=== PATIENT | male | born 1945 | race African-American/Black ===

== ENCOUNTER 2020-09-19 13:30 | Outpatient (RCR) | payer MEDICARE, OTHER, SELFPAY ==
[2020-09-10 10:22] VITALS: BP 163/98; PULSE 98; RESP 22; TEMP 36.5; BMI 34.4
--- NOTE | 2020-09-10 11:14 | PCM.WC.HP ---
(1) Psychosis Status: Chronic Code(s): F29 - Unspecified psychosis not due to a substance or known physiological condition (2) Titubation Status: Chronic Code(s): R26.0 - Ataxic gait (3) Depression Status: Chronic Code(s): F32.9 - Major depressive disorder, single episode, unspecified (4) Poor hygiene Status: Chronic Code(s): R46.0 - Very low level of personal hygiene (5) Glaucoma Status: Chronic Code(s): H40.9 - Unspecified glaucoma (6) Obesity (BMI 30.0-34.9) Status: Chronic Code(s): E66.9 - Obesity, unspecified (7) PAD (peripheral artery disease) Status: Chronic Code(s): I73.9 - Peripheral vascular disease, unspecified (8) Paranoid schizophrenia Status: Chronic Code(s): F20.0 - Paranoid schizophrenia (9) History of DVT (deep vein thrombosis) Status: Chronic Code(s): Z86.718 - Personal history of other venous thrombosis and embolism (10) History of pulmonary embolism Status: Chronic Code(s): Z86.711 - Personal history of pulmonary embolism (11) Seizure disorder Status: Chronic Code(s): G40.909 - Epilepsy, unspecified, not intractable, without status epilepticus (12) Post-phlebitic dermatosis of both lower extremities Status: Acute Code(s): I87.093 - Postthrombotic syndrome with other complications of bilateral lower extremity (13) Obstructive sleep apnea Status: Chronic Code(s): G47.33 - Obstructive sleep apnea (adult) (pediatric) (14) DM type 2 (diabetes mellitus, type 2) Status: Chronic Code(s): E11.9 - Type 2 diabetes mellitus without complications (15) Paroxysmal atrial fibrillation Status: Chronic Code(s): I48.0 - Paroxysmal atrial fibrillation (16) Hyperlipidemia Status: Chronic Code(s): E78.5 - Hyperlipidemia, unspecified (17) Benign hypertension Status: Chronic Code(s): I10 - Essential (primary) hypertension (18) Lower extremity ulceration Status: Chronic Qualifiers: Laterality: right Code(s): L97.909 - Non-pressure chronic ulcer of unspecified part of unspecified lower leg with unspecified severity (19) Venous stasis ulcer Status: Chronic Qualifiers: Venous stasis ulcer site: calf Code(s): I83.009 - Varicose veins of unspecified lower extremity with ulcer of unspecified site; L97.909 - Non-pressure chronic ulcer of unspecified part of unspecified lower leg with unspecified severity History of Present Illness Date of Service: 09/10/20 Chief Complaint: Ulceration of the right anterior tibial surface History of Wound: This is a 75-year-old -[place] male who presents with an ulceration on the right anterior tibial surface. According to the patient, this is his first episode of lower extremity ulceration. It began as a blister approximately 2 months ago, and ultimately developed into an open wound. Among other things, the patient has used peroxide topically. The ulceration has failed to heal, prompting referral from the patient's primary care physician, Dr. Gutiérrez. The patient claims to sleep in a head-up position. He admits to being limited in his activity. He attributes this to his age. He spends a lot of time each day sitting and watching TV. Patient has a history of deep vein thrombosis on several occasions in the past, as well as 2 documented pulmonary embolisms. He is on systemic anticoagulation with Xarelto. He admits to having swelling in his lower extremities bilaterally. He lives alone. Past Medical History Past Medical History: Chronic Problems Psychosis (Chronic) Titubation (Chronic) Depression (Chronic) Poor hygiene (Chronic) Glaucoma (Chronic) Obesity (BMI 30.0-34.9) (Chronic) PAD (peripheral artery disease) (Chronic) Paranoid schizophrenia (Chronic) History of DVT (deep vein thrombosis) (Chronic) History of pulmonary embolism (Chronic) Seizure disorder (Chronic) Lower extremity ulceration (Chronic) Venous stasis ulcer (Chronic) Obstructive sleep apnea (Chronic) DM type 2 (diabetes mellitus, type 2) (Chronic) Paroxysmal atrial fibrillation (Chronic) Hyperlipidemia (Chronic) Benign hypertension (Chronic) Past Medical History: The patient denies a history of myocardial infarction, congestive heart failure, pulmonary disease, renal disease, and thyroid disease. His documented medical problems are listed herein elsewhere. These include diabetes mellitus, atrial fibrillation, psychosis, titubation, depression, hypertension, glaucoma, obesity, obstructive sleep apnea, hyperlipidemia, peripheral arterial disease, paranoid schizophrenia, seizure disorder, and history of DVT and pulmonary embolism. Surgical History: herniorrhaphy - The patient has had bilateral inguinal hernia repairs. Allergies/Adverse Reactions: Allergies No Known Allergies Allergy (Verified 02/02/16 17:18) Home Medications: Ambulatory Orders Medication Instructions Recorded Amlodipine [Norvasc] 10 mg PO DAILY 02/02/16 Atorvastatin Calcium [Lipitor] 80 mg PO QHS 02/02/16 Ergocalciferol [Vitamin D] 50,000 unit PO Q7D 02/02/16 Furosemide [Lasix] 40 mg PO DAILY 02/02/16 Lisinopril [Zestril] 10 mg PO DAILY 02/02/16 Oxycodone [Oxyir] 5 mg PO DAILY PRN 02/02/16 Potassium Chloride [K-Dur] 20 meq PO DAILY 02/02/16 Quetiapine Fumarate [Seroquel] 50 mg PO QHS 02/02/16 Rivaroxaban [Xarelto] 20 mg PO DAILY 02/02/16 Triamcinolone 0.025% Cream 1 applic TOPICAL BID PRN 02/02/16 [Kenalog] Urea [Urevaz] 60 gm TP BID 02/02/16 metFORMIN HCl [Glucophage] 1,000 mg PO BIDCM 02/02/16 - Family History Maternal Stroke, - - Hypertension, diabetes mellitus Paternal No pertinent history Social History: Patient lives alone. He has never been . He denies use of alcohol and tobacco products. 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 Lives: Alone Smoking Status: Never smoker Tobacco Use: Non-smoker Alcohol: None Drugs: None Review of Systems Constitutional: Denies: Chills, Fever, Weight Change Eyes: Denies: Pain, Vision Change HEENT: Denies: Difficulty Hearing, Difficulty Swallowing, Sinus Congestion Cardiovascular: Denies: Chest Pain, Palpitations Respiratory: Denies: Cough, Shortness of Breath Gastrointestinal: Denies: Diarrhea, Nausea, Vomiting Genitourinary: Denies: Dysuria, Hematuria Endocrine: Denies: Heat/ Cold Intolerance, Polydipsia, Polyuria Hematologic/ Lymphatic: Denies: Easy Bruising, Easy Bleeding - Physical Exam Vital Signs Temp Pulse Resp BP 97.7 F L 98 22 H 163/98 H 09/10/20 10:22 09/10/20 10:22 09/10/20 10:22 09/10/20 10:22 General: Alert, Oriented x3, Cooperative, No apparent distress, Well developed, Well nourished HEENT: Atraumatic, PERRLA, EOMI, Normocephalic Oral: Moist Mucosa Neck: No JVD, No Nuchal Rigidity, Trachea Midline Lungs: Normal air movement Abdomen: Non-Distended Extremities: No clubbing, No cyanosis, No edema, No Calf Tenderness Addt'l Extremities Findings: Hyperpigmentation and lipodermatosclerosis are noted in the lower extremities bilaterally. There is an ulceration on the right anterior tibial surface. There is no sign of infection or cellulitis. There is a small amount of bioburden. There is no significant necrotic or nonviable tissue. Dimensions are documented elsewhere. There is no undermining. Slight swelling and edema are noted in both lower extremities. Wound Measurements and Assessment WC - Nurse 1 - General Ulcer Measurement Start: 09/10/20 10:22 Freq: Status: Active Protocol: Activity Type Activity Date Activity User E-Sign Co-Sign Detail Recorded Client Recorded Date Recorded By Document 09/10/20 10:22 DL [id number] 09/10/20 10:45 DL 09/10/20 10:22 Wound Center Nurse 1 [Ulcer Assessment] #1 R Garcia -Current Size (cm) - Length 0.5 -Current Size (cm) - Width 0.4 -Current Size (cm) - Depth 0.2 -Total Square Cm 0.20 -Photo Taken Yes -Epithelialization None Present -Classification - Thickness Full Thickness without Exposed Support Structure -Exudate Amt Small -Exudate Type Yellow/Green -Wound Margin Indistinct, Non -Visible -Granulation Amt Small (1-33%) -Granulation Quality [place] -Necrosis Amt Large (67-100%) -Necrotic Tissue Type Adherent Slough -Structure Exposed N/A -Texture (Mirtha-wound Skin Appearance) Scarring -Moisture (Mirtha-wound Skin Appearance Dry/Scaly ) -Color (Mirtha-wound Skin Appearance) Hemosiderin Staining -Temperature (Mirtha-wound Skin No Abnormality Appearance) (Pt Warm) -Tenderness on Palpation (Mitrha-wound No Skin Appearance) -Ulcer Cleansing Rinsed/ Irrigated with Saline -Foul Odor after Cleansing No -Anesthetic Used 4% Lidocaine Solution [Edema Assessment] -Right Calf (cm) 40 -Right Ankle (cm) 24.8 -Left Calf (cm) 39 -Left Ankle (cm) 26 Musculoskeletal: No Muscle Wasting Neurological: Cranial nerves II-XII grossly intact, Neuro grossly intact Psych/Mental Status: Normal Affect, Appropriate, Alert and oriented to time, place, person, mood and affect Debridement Note Laterality: Right - Anterior tibial surface Type of Debridement: Excisional debridement Anesthesia Used: 5% Lidocaine Gel Depth: Down to and including healthy tissue, in the subcutaneous layer Percentage of wound debrided: 100 Instrument Used: 5mm curette Tissue Removed: Bioburden Severity: Fat Layer Exposed Amount of bleeding with debridement: Mild Bleeding Controlled with: Compression and gauze Patient tolerated procedure well Assessment/Plan Active Problems Psychosis (Chronic) Titubation (Chronic) Depression (Chronic) Poor hygiene (Chronic) Glaucoma (Chronic) Obesity (BMI 30.0-34.9) (Chronic) PAD (peripheral artery disease) (Chronic) Paranoid schizophrenia (Chronic) History of DVT (deep vein thrombosis) (Chronic) History of pulmonary embolism (Chronic) Seizure disorder (Chronic) Post-phlebitic dermatosis of both lower extremities (Acute) Obstructive sleep apnea (Chronic) DM type 2 (diabetes mellitus, type 2) (Chronic) Paroxysmal atrial fibrillation (Chronic) Hyperlipidemia (Chronic) Benign hypertension (Chronic) Assessment: This is a 75-year-old -[place] male who presents with a 2-month history of ulceration on the right anterior tibial surface. This may well be related to his apparent chronic venous disease and chronic dependency. Patient has multiple pre-existing medical problems, listed above. In addition, recent laboratory studies have been performed, on August 22, 2020. Results are as follows: Total protein 7.5, serum albumin 4.1, calcium 9.2, alkaline phosphatase 154, AST 22, glucose 376, BUN 10, creatinine 0.75, sodium 136, potassium 4.4, chloride 98, ALT 13, white blood count 6.7, hemoglobin 14.8, hematocrit 46.8, platelets 193, hemoglobin A1c 11.9. Plan: Patient has been advised to optimize his nutritional intake. Is also been advised to optimize his glycemic control, and to collaborate with his primary care physician in this regard. With respect to the ulceration on the right anterior tibial surface, we are to implement conservative treatment measures initially. These are to include leg elevation, avoidance of idle standing and sitting, and enhanced activity. Leg elevation has been described as positioning the legs level with the patient's heart, or higher. This is to be accomplished as much as possible, while sleeping and even during daytime hours. Activity has been encouraged. We will ultimately implement compression to the lower extremities as well. However, we are first to obtain a noninvasive lower extremity arterial study to determine whether there is significant arterial occlusive disease. Once completed, we will initiate compression to the lower extremities, likely in the range of 20 to 30 mmHg compression. Initially, we are to implement the use of collagen hydrogel topically to the ulceration on the right anterior tibial surface, which will be applied on a daily basis. We are to make attempts to recruit home health nursing care to assist the patient in his daily wound care. Patient will likely benefit from home health nursing care judging from his appearance, suggesting some deficit in hygiene. The patient is to return in 1 for reevaluation. Influenza vaccine was not administered today. The patient is not a smoker. Patient weighs 246 pounds. He stands 5 feet 11 inches tall. His BMI is 34.4. Weight loss has been recommended, in collaboration with his primary care physician has been advised.
[2020-09-17 11:04] VITALS: BP 168/92; PULSE 98; RESP 20; TEMP 36.3; BMI 34.4
--- NOTE | 2020-09-17 11:38 | PCM.WC.HP ---
(1) Psychosis Status: Chronic Code(s): F29 - Unspecified psychosis not due to a substance or known physiological condition (2) Titubation Status: Chronic Code(s): R26.0 - Ataxic gait (3) Depression Status: Chronic Code(s): F32.9 - Major depressive disorder, single episode, unspecified (4) Poor hygiene Status: Chronic Code(s): R46.0 - Very low level of personal hygiene (5) Glaucoma Status: Chronic Code(s): H40.9 - Unspecified glaucoma (6) Obesity (BMI 30.0-34.9) Status: Chronic Code(s): E66.9 - Obesity, unspecified (7) PAD (peripheral artery disease) Status: Chronic Code(s): I73.9 - Peripheral vascular disease, unspecified (8) Paranoid schizophrenia Status: Chronic Code(s): F20.0 - Paranoid schizophrenia (9) History of DVT (deep vein thrombosis) Status: Chronic Code(s): Z86.718 - Personal history of other venous thrombosis and embolism (10) History of pulmonary embolism Status: Chronic Code(s): Z86.711 - Personal history of pulmonary embolism (11) Seizure disorder Status: Chronic Code(s): G40.909 - Epilepsy, unspecified, not intractable, without status epilepticus (12) Post-phlebitic dermatosis of both lower extremities Status: Acute Code(s): I87.093 - Postthrombotic syndrome with other complications of bilateral lower extremity (13) Obstructive sleep apnea Status: Chronic Code(s): G47.33 - Obstructive sleep apnea (adult) (pediatric) (14) DM type 2 (diabetes mellitus, type 2) Status: Chronic Code(s): E11.9 - Type 2 diabetes mellitus without complications (15) Paroxysmal atrial fibrillation Status: Chronic Code(s): I48.0 - Paroxysmal atrial fibrillation (16) Hyperlipidemia Status: Chronic Code(s): E78.5 - Hyperlipidemia, unspecified (17) Benign hypertension Status: Chronic Code(s): I10 - Essential (primary) hypertension (18) Lower extremity ulceration Status: Chronic Qualifiers: Laterality: right Code(s): L97.909 - Non-pressure chronic ulcer of unspecified part of unspecified lower leg with unspecified severity (19) Venous stasis ulcer Status: Chronic Qualifiers: Venous stasis ulcer site: calf Code(s): I83.009 - Varicose veins of unspecified lower extremity with ulcer of unspecified site; L97.909 - Non-pressure chronic ulcer of unspecified part of unspecified lower leg with unspecified severity History of Present Illness Date of Service: 09/17/20 Chief Complaint: Ulceration of the right anterior tibial surface History of Wound: This is a 75-year-old -[place] male who presented with an ulceration on the right anterior tibial surface. According to the patient, this is his first episode of lower extremity ulceration. It began as a blister approximately 2 months prior to admission, and ultimately developed into an open wound. Among other things, the patient has used peroxide topically. The ulceration has failed to heal, prompting referral from the patient's primary care physician, Dr. Gutiérrez. The patient claims to sleep in a head-up position. He admits to being limited in his activity. He attributes this to his age. He spends a lot of time each day sitting and watching TV. Patient has a history of deep vein thrombosis on several occasions in the past, as well as 2 documented pulmonary embolisms. He is on systemic anticoagulation with Xarelto. He admits to having swelling in his lower extremities bilaterally. He lives alone. Past Medical History Past Medical History: Chronic Problems Psychosis (Chronic) Titubation (Chronic) Depression (Chronic) Poor hygiene (Chronic) Glaucoma (Chronic) Obesity (BMI 30.0-34.9) (Chronic) PAD (peripheral artery disease) (Chronic) Paranoid schizophrenia (Chronic) History of DVT (deep vein thrombosis) (Chronic) History of pulmonary embolism (Chronic) Seizure disorder (Chronic) Lower extremity ulceration (Chronic) Venous stasis ulcer (Chronic) Obstructive sleep apnea (Chronic) DM type 2 (diabetes mellitus, type 2) (Chronic) Paroxysmal atrial fibrillation (Chronic) Hyperlipidemia (Chronic) Benign hypertension (Chronic) Surgical History: herniorrhaphy - The patient has had bilateral inguinal hernia repairs. Allergies/Adverse Reactions: Allergies No Known Allergies Allergy (Verified 02/02/16 17:18) Home Medications: Ambulatory Orders Medication Instructions Recorded Amlodipine [Norvasc] 10 mg PO DAILY 02/02/16 Ergocalciferol [Vitamin D] 50,000 unit PO Q7D 02/02/16 Furosemide [Lasix] 40 mg PO DAILY 02/02/16 Lisinopril [Zestril] 10 mg PO DAILY 02/02/16 Potassium Chloride [K-Dur] 20 meq PO DAILY 02/02/16 Quetiapine Fumarate [Seroquel] 50 mg PO QHS 02/02/16 metFORMIN HCl [Glucophage] 1,000 mg PO BIDCM 02/02/16 Doxazosin Mesylate [Cardura] 4 mg PO 09/10/20 Ezetimibe [Zetia] 10 mg PO DAILY 09/10/20 Metformin HCl 500 09/10/20 - Family History Maternal Stroke, - - Hypertension, diabetes mellitus Paternal No pertinent history Lives: Alone Smoking Status: Never smoker Tobacco Use: Non-smoker Alcohol: None Drugs: None Review of Systems Constitutional: Denies: Chills, Fever, Weight Change Eyes: Denies: Pain, Vision Change HEENT: Denies: Difficulty Hearing, Difficulty Swallowing, Sinus Congestion Cardiovascular: Denies: Chest Pain, Palpitations Respiratory: Denies: Cough, Shortness of Breath Gastrointestinal: Denies: Diarrhea, Nausea, Vomiting Genitourinary: Denies: Dysuria, Hematuria Endocrine: Denies: Heat/ Cold Intolerance, Polydipsia, Polyuria Hematologic/ Lymphatic: Denies: Easy Bruising, Easy Bleeding - Physical Exam Vital Signs Temp Pulse Resp BP 97.3 F L 98 20 H 168/92 H 09/17/20 11:04 09/17/20 11:04 09/17/20 11:04 09/17/20 11:04 General: Alert, Oriented x3, Cooperative, No apparent distress, Well developed, Well nourished HEENT: Atraumatic, PERRLA, EOMI, Normocephalic Oral: Moist Mucosa Neck: No JVD Lungs: Normal air movement Abdomen: Non-Distended Extremities: No clubbing, No cyanosis, No Calf Tenderness, Edema, - - Mild swelling and edema persist in the patient's lower extremities bilaterally. Chronic venous stasis changes are also noted in the lower extremities. Addt'l Wound Findings: The ulceration persists on the patient's right anterior tibial surface. It appears slightly larger in size. Dimensions are documented elsewhere. There is no sign of infection or cellulitis. There is a moderate amount of bioburden. Wound Measurements and Assessment WC - Nurse 1 - General Ulcer Measurement Start: 09/10/20 10:22 Freq: Status: Active Protocol: Activity Type Activity Date Activity User E-Sign Co-Sign Detail Recorded Client Recorded Date Recorded By Document 09/17/20 11:04 [id number] 09/17/20 11:10 09/17/20 11:04 Wound Center Nurse 1 [Ulcer Assessment] #1 R Garcia -Current Size (cm) - Length 0.6 -Current Size (cm) - Width 0.8 -Current Size (cm) - Depth 0.1 -Total Square Cm 0.48 -Photo Taken No -Exudate Amt None Present -Wound Margin Flat & Intact -Granulation Amt Small (1-33%) -Granulation Quality [place] -Necrosis Amt Large (67-100%) -Necrotic Tissue Type Adherent Slough -Structure Exposed N/A -Texture (Mirtha-wound Skin Appearance) Scarring -Moisture (Mirtha-wound Skin Appearance Dry/Scaly ) -Color (Mirtha-wound Skin Appearance) Hemosiderin Staining -Temperature (Mirtha-wound Skin No Abnormality Appearance) (Pt Warm) -Tenderness on Palpation (Mirtha-wound No Skin Appearance) -Ulcer Cleansing Rinsed/ Irrigated with Saline -Foul Odor after Cleansing No -Anesthetic Used 5% Lidocaine Gel [Edema Assessment] -Right Calf (cm) 40.8 -Right Ankle (cm) 25.5 - Nurse 3 - General Ulcer D/C NN Start: 09/10/20 10:22 Freq: Status: Active Protocol: Activity Type Activity Date Activity User E-Sign Co-Sign Detail Recorded Client Recorded Date Recorded By Document 09/17/20 11:24 [facility] [id number] 09/17/20 11:24 [facility] 09/17/20 11:24 Wound Care Nurse 3 [Wound Dressing] #1 R Garcia -Ulcer Cleansing Rinsed/ Irrigated with Saline -Foul Odor after Cleansing No -Primary Dressing Applied Other -Other Dressing hydrogel -Primary Dressing Covered/Secured Dry Gauze & with Roll Gauze, Secured with Tape [Post Procedure Tolerated] -Treatment Response Procedure Tolerated Well Pain Scale: 0-10 Numeric [Pain] -Is Patient Pain Free? Yes WC - Visit Discharge [Visit Discharge Information] -Discharge Condition Stable -Ambulatory Status Ambulatory,Cane -Transportation Private Auto Musculoskeletal: No Muscle Wasting Neurological: Cranial nerves II-XII grossly intact, Neuro grossly intact Psych/Mental Status: Normal Affect, Appropriate, Alert and oriented to time, place, person, mood and affect Debridement Note Post-Debridement Measurements/Treatment WC - Nurse 2 - General Ulcer CM Notes Start: 09/10/20 10:22 Freq: Status: Active Protocol: Activity Type Activity Date Activity User E-Sign Co-Sign Detail Recorded Client Recorded Date Recorded By Document 09/10/20 13:13 PL [id number] 09/10/20 13:15 PL 09/10/20 13:13 Wound Center Nurse 2 #1 R Garcia -Time 11:07 -Correct Patient Yes -Correct Side, Site, Position Yes -Correct Procedure Yes -Procedure Performed Yes -Type of Procedure Debridement -Clinical Debridement Subcutaneous -Tissue Removed Subcutaneous -Post Debridement (cm) - Length 0.7 -Post Debridement (cm) - Width 1.0 -Post Debridement (cm) - Depth 0.1 -Total Square (Post) (cm) 0.70 -Area of Debridement (cm) - Length 0.7 -Area of Debridement (cm) - Width 1.0 -Total Square (Area) (cm) 0.70 -Tunneling No -Undermining/Tunneling No -Circular Undermining No -Wound/Ulcer Outcome Not Healed -Ulcer Cleansing Rinsed/ Irrigated with Saline -Foul Odor after Cleansing No -Bioengineered Tissue No -Debridement - Subq, 1st 20sq cm Yes Pain Scale: 0-10 Numeric Is Patient Pain Free? Yes - Nurse 3 - General Ulcer D/C NN Start: 09/10/20 10:22 Freq: Status: Active Protocol: Activity Type Activity Date Activity User E-Sign Co-Sign Detail Recorded Client Recorded Date Recorded By Document 09/10/20 11:25 DL [id number] 09/10/20 11:29 DL Document 09/17/20 11:24 [facility] [id number] 09/17/20 11:24 [facility] 09/10/20 09/17/20 11:25 11:24 Wound Care Nurse 3 #1 R Garcia -Ulcer Cleansing Wound Cleanser Rinsed/ Irrigated with Saline -Foul Odor after Cleansing No No -Primary Dressing Applied C Hydrogel ($) Other -Other Dressing hydrogel -Primary Dressing Covered/Secured with Dry Gauze & Dry Gauze & Roll Gauze, Roll Gauze, Secured with Secured with Tape Tape Treatment Response Procedure Procedure Tolerated Well Tolerated Well Pain Scale: 0-10 Numeric Is Patient Pain Free? Yes Yes WC - Visit Discharge Discharge Condition Stable Stable Ambulatory Status Ambulatory Ambulatory,Cane Transportation Private Auto Laterality: Right - Anterior tibial surface Type of Debridement: Excisional debridement Anesthesia Used: 5% Lidocaine Gel Depth: Down to and including healthy tissue, in the subcutaneous layer Percentage of wound debrided: 100 Instrument Used: 3mm curette Tissue Removed: Bioburden Severity: Fat Layer Exposed Amount of bleeding with debridement: Mild Bleeding Controlled with: Compression and gauze Patient tolerated procedure well Assessment/Plan Active Problems Psychosis (Chronic) Titubation (Chronic) Depression (Chronic) Poor hygiene (Chronic) Glaucoma (Chronic) Obesity (BMI 30.0-34.9) (Chronic) PAD (peripheral artery disease) (Chronic) Paranoid schizophrenia (Chronic) History of DVT (deep vein thrombosis) (Chronic) History of pulmonary embolism (Chronic) Seizure disorder (Chronic) Post-phlebitic dermatosis of both lower extremities (Acute) Lower extremity ulceration (Chronic) Venous stasis ulcer (Chronic) Obstructive sleep apnea (Chronic) DM type 2 (diabetes mellitus, type 2) (Chronic) Paroxysmal atrial fibrillation (Chronic) Hyperlipidemia (Chronic) Benign hypertension (Chronic) Assessment: This is a 75-year-old -[place] male who presented with a 2-month history of ulceration on the right anterior tibial surface. This may well be related to his apparent chronic venous disease and chronic dependency. The patient has multiple pre-existing medical problems, listed above. In addition, recent laboratory studies have been performed, on August 22, 2020. Results are as follows: Total protein 7.5, serum albumin 4.1, calcium 9.2, alkaline phosphatase 154, AST 22, glucose 376, BUN 10, creatinine 0.75, sodium 136, potassium 4.4, chloride 98, ALT 13, white blood count 6.7, hemoglobin 14.8, hematocrit 46.8, platelets 193, hemoglobin A1c 11.9. The patient appears to be somewhat confused. We had recommended and provided collagen hydrogel to be applied topically on a daily basis by the patient. However, he indicates that he has been using some wound healing product that he has at home, rather than the collagen hydrogel which has been recommended. The nature of the product he has been using is not known. He claims to be using it because it is more convenient he is also been using hydrogen peroxide topically, despite admonitions not to do so. Plan: Patient has been advised to optimize his nutritional intake. Is also been advised to optimize his glycemic control, and to collaborate with his primary care physician in this regard. With respect to the ulceration on the right anterior tibial surface, we are to continue conservative treatment measures. These are to include leg elevation, avoidance of idle standing and sitting, and enhanced activity. Leg elevation has been described as positioning the legs level with the patient's heart, or higher. This is to be accomplished as much as possible, while sleeping and even during daytime hours. Activity has been encouraged. We will ultimately implement compression to the lower extremities as well. A noninvasive lower extremity arterial study is to be performed yet today, and we will proceed to compression if there proves to be little or no significant arterial occlusive disease. Given the patient's noncompliance thus far, or his confusional state, we may consider the use of an Unna boot or 3M 2 layer compression wrap, which will be changed on site twice weekly. We are to make attempts to recruit home health nursing care to assist the patient in his daily wound care. Patient will likely benefit from home health nursing care judging from his appearance, suggesting some deficit in hygiene. The patient is to return in 1 week for reevaluation. Influenza vaccine was not administered today. The patient is not a smoker. Patient weighs 246 pounds. He stands 5 feet 11 inches tall. His BMI is 34.4. Weight loss has been recommended, in collaboration with his primary care physician has been advised.
--- NOTE | 2020-09-17 13:03 | ART_ITS ---
Reason For Study: Non healing wound Procedure A bilateral lower extremity continuous wave Doppler with analog waveform analysis,segmental pressures,and ankle brachial indexes without exercise. Left Segmental Pressures Left brachial= 127mmHg. Left thigh = >254mmHg. Left calf = 129mmHg. Left posterior tibial artery = 95mmHg. Left dorsalis pedis artery = 104mmHg. Left digit = 77 mmHg. The left dorsalis pedis waveforms are triphasic. The left posterior tibial artery waveforms are triphasic. Right Segmental Pressures Right brachial= 136mmHg. Right thigh = >254mmHg. Right calf = 110mmHg. Right posterior tibial artery = 109mmHg. Right dorsalis pedis artery = 113mmHg. Right digit = 89 mmHg. The right dorsalis pedis waveforms are triphasic. The right posterior tibial artery waveforms are biphasic. Indices The right ankle brachial index by the dorsalis pedis is 0.83. The right ankle brachial index by the posterior tibial artery is 0.80. The right digital-brachial index is 0.65. The left ankle brachial index by the dorsalis pedis is 0.76. The left ankle brachial index by the posterior tibial artery is 0.70. The left digital-brachial index is 0.57. Interpretation Summary Biphasic and triphasic Doppler waveforms are noted at ankle level on the right. Triphasic Doppler waveforms are noted at ankle level on the left. Pulse-volume recording waveform amplitudes are diminished at ankle and digital levels bilaterally, but satisfactory at low-thigh and calf levels bilaterally. The resting right ankle-brachial index is mildly diminished. The resting left ankle- brachial index is moderately diminished. Digital-brachial indices are mildly diminished bilaterally. There is evidence of mild arterial occlusive disease in the right lower extremity. There is evidence of [id number] arterial occlusive disease in the left lower extremity. Ordering Physician: Charly Majano Referring Physician: Gregorio Gutiérrez M.D. Performed By: Willinger, Valeria, RVT
[2020-09-19 14:23] VITALS: BP 148/102; PULSE 96; RESP 18; TEMP 36.6; BMI 34.4
== END 2020-09-21 23:59 ==
LOC: WC 13:30
PROVIDERS: PCP Internal Medicine; Referring Provider Surgery; Visit Provider Surgery
DX: I83.018 Varicose veins of right lower extremity with ulcer other part of lower leg (principal); L97.811 Non-pressure chronic ulcer of other part of right lower leg limited to breakdown of skin; E78.5 Hyperlipidemia, unspecified; E11.621 Type 2 diabetes mellitus with foot ulcer; I48.0 Paroxysmal atrial fibrillation; I10 Essential (primary) hypertension; Z86.718 Personal history of other venous thrombosis and embolism; G47.33 Obstructive sleep apnea (adult) (pediatric); Z86.711 Personal history of pulmonary embolism; E66.9 Obesity, unspecified; F32.9 Major depressive disorder, single episode, unspecified; F20.0 Paranoid schizophrenia; Z79.899 Other long term (current) drug therapy; Z79.84 Long term (current) use of oral hypoglycemic drugs; Z68.34 Body mass index [BMI] 34.0-34.9, adult; M79.89 Other specified soft tissue disorders; R60.0 Localized edema; I70.202 Unspecified atherosclerosis of native arteries of extremities, left leg; E11.51 Type 2 diabetes mellitus with diabetic peripheral angiopathy without gangrene
CPT/HCPCS: 11042; 29580; 93923; 99213; G0463

== ENCOUNTER 2020-10-01 11:30 | Outpatient (RCR) | payer MEDICARE, OTHER, SELFPAY ==
[2020-09-22 00:40] VITALS: BP 148/102; PULSE 96; RESP 18; TEMP 36.6
[2020-09-24 10:16] VITALS: BP 163/106; PULSE 72; RESP 18; TEMP 35.7; BMI 34.4
--- NOTE | 2020-09-24 10:39 | HP.PCM_ITS ---
(1) Psychosis Status: Chronic Code(s): F29 - Unspecified psychosis not due to a substance or known physiological condition (2) Titubation Status: Chronic Code(s): R26.0 - Ataxic gait (3) Depression Status: Chronic Code(s): F32.9 - Major depressive disorder, single episode, unspecified (4) Poor hygiene Status: Chronic Code(s): R46.0 - Very low level of personal hygiene (5) Glaucoma Status: Chronic Code(s): H40.9 - Unspecified glaucoma (6) Obesity (BMI 30.0-34.9) Status: Chronic Code(s): E66.9 - Obesity, unspecified (7) PAD (peripheral artery disease) Status: Chronic Code(s): I73.9 - Peripheral vascular disease, unspecified (8) Paranoid schizophrenia Status: Chronic Code(s): F20.0 - Paranoid schizophrenia (9) History of DVT (deep vein thrombosis) Status: Chronic Code(s): Z86.718 - Personal history of other venous thrombosis and embolism (10) History of pulmonary embolism Status: Chronic Code(s): Z86.711 - Personal history of pulmonary embolism (11) Seizure disorder Status: Chronic Code(s): G40.909 - Epilepsy, unspecified, not intractable, without status epilepticus (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 Code(s): I87.093 - Postthrombotic syndrome with other complications of bilateral lower extremity (13) Lower extremity ulceration Status: Chronic Qualifiers: Laterality: right Non-pressure ulcer stage: with fat layer exposed Qualified Code(s): L97.912 - Non-pressure chronic ulcer of unspecified part of right lower leg with fat layer exposed Code(s): L97.909 - Non-pressure chronic ulcer of unspecified part of unspecified lower leg with unspecified severity (14) Venous stasis ulcer Status: Chronic Qualifiers: Venous stasis ulcer site: calf Varicose vein presence: with varicose veins Laterality: right Non-pressure ulcer stage: with fat layer exposed Qualified Code(s): I83.012 - Varicose veins of right lower extremity with ulcer of calf; L97.212 - Non-pressure chronic ulcer of right calf with fat layer exposed Code(s): I83.009 - Varicose veins of unspecified lower extremity with ulcer of unspecified site; L97.909 - Non-pressure chronic ulcer of unspecified part of unspecified lower leg with unspecified severity (15) Obstructive sleep apnea Status: Chronic Code(s): G47.33 - Obstructive sleep apnea (adult) (pediatric) (16) Right arm weakness Status: Chronic Code(s): M62.81 - Muscle weakness (generalized) (17) Tingling of right upper extremity Status: Chronic Code(s): R20.2 - Paresthesia of skin (18) DM type 2 (diabetes mellitus, type 2) Status: Chronic Code(s): E11.9 - Type 2 diabetes mellitus without complications (19) Paroxysmal atrial fibrillation Status: Chronic Code(s): I48.0 - Paroxysmal atrial fibrillation (20) Hyperlipidemia Status: Chronic Code(s): E78.5 - Hyperlipidemia, unspecified (21) Benign hypertension Status: Chronic Code(s): I10 - Essential (primary) hypertension History of Present Illness Date of Service: 09/24/20 Chief Complaint: Ulceration of the right anterior tibial surface History of Wound: This is a 75-year-old -[place] male who presented with an ulceration on the right anterior tibial surface. According to the patient, this is his first episode of lower extremity ulceration. It began as a blister approximately 2 months prior to admission, and ultimately developed into an open wound. Among other things, the patient has used peroxide topically. The ulceration has failed to heal, prompting referral from the patient's primary care physician, Dr. Gutiérrez. The patient claims to sleep in a head-up position. He admits to being limited in his activity. He attributes this to his age. He spends a lot of time each day sitting and watching TV. Patient has a history of deep vein thrombosis on several occasions in the past, as well as 2 documented pulmonary embolisms. He is on systemic anticoagulation with Xarelto. He admits to having swelling in his lower extremities bilaterally. He lives alone. 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 Allergies/Adverse Reactions: Allergies No Known Allergies Allergy (Verified 02/02/16 17:18) Home Medications: Ambulatory Orders Medication Instructions Recorded Amlodipine [Norvasc] 10 mg PO DAILY 02/02/16 Ergocalciferol [Vitamin D] 50,000 unit PO Q7D 02/02/16 Furosemide [Lasix] 40 mg PO DAILY 02/02/16 Lisinopril [Zestril] 10 mg PO DAILY 02/02/16 Potassium Chloride [K-Dur] 20 meq PO DAILY 02/02/16 Quetiapine Fumarate [Seroquel] 50 mg PO QHS 02/02/16 metFORMIN HCl [Glucophage] 1,000 mg PO BIDCM 02/02/16 Doxazosin Mesylate [Cardura] 4 mg PO 09/10/20 Ezetimibe [Zetia] 10 mg PO DAILY 09/10/20 Metformin HCl 500 09/10/20 - Family History Maternal Stroke, - - Hypertension, diabetes mellitus Paternal No pertinent history Smoking Status: Never smoker Tobacco Use: Non-smoker Review of Systems Constitutional: Denies: Chills, Fever, Weight Change Eyes: Denies: Pain, Vision Change HEENT: Denies: Difficulty Hearing, Difficulty Swallowing, Sinus Congestion Cardiovascular: Denies: Chest Pain, Palpitations Respiratory: Denies: Cough, Shortness of Breath Gastrointestinal: Denies: Diarrhea, Nausea, Vomiting Genitourinary: Denies: Dysuria, Hematuria Endocrine: Denies: Heat/ Cold Intolerance, Polydipsia, Polyuria Hematologic/ Lymphatic: Denies: Easy Bruising, Easy Bleeding - Physical Exam Vital Signs Temp Pulse Resp BP 96.2 F L 72 18 163/106 H 09/24/20 10:16 09/24/20 10:16 09/24/20 10:16 09/24/20 10:16 General: Alert, Oriented x3, Cooperative, No apparent distress, Well developed, Well nourished HEENT: Atraumatic, PERRLA, EOMI, Normocephalic Oral: Moist Mucosa Neck: No JVD Lungs: Normal air movement Abdomen: Non-Distended Extremities: No clubbing, No cyanosis, No Calf Tenderness, - - Mild swelling and edema persist in the patient's lower extremities bilaterally. However, it is decreasing in severity. Circumference measurements are decreasing. Chronic venous changes are also noted, namely lipodermatosclerosis and hyperpigmentation in the gaiter areas bilaterally. Addt'l Wound Findings: The ulceration on the right anterior tibial surface persists. It is smaller in size. Dimensions are documented elsewhere. There is no sign of infection or cellulitis. There is a small amount of bioburden. Skin: No rashes Wound Measurements and Assessment WC - Nurse 1 - General Ulcer Measurement Start: 09/24/20 10:16 Freq: Status: Active Protocol: Activity Type Activity Date Activity User E-Sign Co-Sign Detail Recorded Client Recorded Date Recorded By Document 09/24/20 10:16 [facility] [id number] 09/24/20 10:27 [facility] 09/24/20 10:16 Wound Center Nurse 1 [Ulcer Assessment] #1 R Garcia -Combined with other wound No -Current Size (cm) - Length 0.4 -Current Size (cm) - Width 0.3 -Current Size (cm) - Depth 0.2 -Total Square Cm 0.12 -Photo Taken No -Epithelialization Small 1-33% -Tunneling No -Undermining/Tunneling No -Circular Undermining No -Exudate Amt Small -Exudate Type Serosanguineous -Wound Margin Distinct, Outline Attached -Granulation Amt Large (67-100%) -Granulation Quality Red -Slough/Fibrin Yes -Necrosis Amt Small (1-33%) -Necrotic Tissue Type Adherent Slough -Texture (Mirtha-wound Skin Appearance) Assessed, Scarring -Moisture (Mirtha-wound Skin Appearance Assessed,Dry/ ) Scaly -Color (Mirtha-wound Skin Appearance) Assessed -Temperature (Mirtha-wound Skin No Abnormality Appearance) (Pt Warm) -Tenderness on Palpation (Mirtha-wound No Skin Appearance) -Ulcer Cleansing soapy water -Foul Odor after Cleansing No -Anesthetic Used 5% Lidocaine Gel [Edema Assessment] -Lower Limb Edema Present Yes -Right Calf (cm) 40.1 -Right Ankle (cm) 24.4 Musculoskeletal: No Muscle Wasting Neurological: Cranial nerves II-XII grossly intact, Neuro grossly intact Psych/Mental Status: Normal Affect, Appropriate, Alert and oriented to time, place, person, mood and affect Debridement Note Laterality: Right - Anterior tibial surface Type of Debridement: Excisional debridement Anesthesia Used: 5% Lidocaine Gel Depth: Down to and including healthy tissue, in the subcutaneous layer Percentage of wound debrided: 100 Instrument Used: 3mm curette Tissue Removed: [place] Severity: Fat Layer Exposed Amount of bleeding with debridement: Mild Bleeding Controlled with: Compression and gauze Patient tolerated procedure well Assessment/Plan Assessment: This is a 75-year-old -[place] male who presented with a 2- month history of ulceration on the right anterior tibial surface. This may well be related to his apparent chronic venous disease and chronic dependency. The patient has multiple pre-existing medical problems, listed above. In addition, recent laboratory studies have been performed, on August 22, 2020. Results are as follows: Total protein 7.5, serum albumin 4.1, calcium 9.2, alkaline phosphatase 154, AST 22, glucose 376, BUN 10, creatinine 0.75, sodium 136, potassium 4.4, chloride 98, ALT 13, white blood count 6.7, hemoglobin 14.8, hematocrit 46.8, platelets 193, hemoglobin A1c 11.9. The patient appears to be somewhat confused. We had recommended and provided collagen hydrogel to be applied topically on a daily basis by the patient. However, he indicated that he had been using some wound healing product that he has at home, rather than the collagen hydrogel which was recommended. The nature of the product he has been using was not known. He claimed to be using it because it is more convenient. He had also been using hydrogen peroxide topically, despite admonitions not to do so. Plan: The patient has been advised to optimize his nutritional intake. He has also been advised to optimize his glycemic control, and to collaborate with his primary care physician in this regard. With respect to the ulceration on the right anterior tibial surface, we are to continue conservative treatment measures. These are to include leg elevation, avoidance of idle standing and sitting, and enhanced activity. Leg elevation has been described as positioning the legs level with the patient's heart, or higher. This is to be accomplished as much as possible, while sleeping and even during daytime hours. Activity has been encouraged. Thus far, there is question as to whether the patient has been compliant with these recommendations. A noninvasive lower extremity arterial study has been performed, revealing evidence of mild arterial occlusive disease in the right lower extremity. We have been using an Unna boot multilayer compression wrap to the right lower extremity over the last 4 to 5 days, which has been well-tolerated by the patient. We are to continue with this modality, changing the Unna boot twice weekly. There are questions about the patient's compliance. Furthermore, his hygiene is suboptimal. Patient presents today wearing a shirt which is sustained with spilled food, which he states has been there since yesterday. It is apparent that the patient's hygiene warrants improvement. We are to make attempts to recruit home health nursing care to assist the patient in his daily needs. The patient is to return in 1 week for reevaluation. Influenza vaccine was not administered today. The patient is not a smoker. Patient weighs 246 pounds. He stands 5 feet 11 inches tall. His BMI is 34.4. Weight loss has been recommended, in collaboration with his primary care physician has been advised.
[2020-09-27 11:49] VITALS: BP 139/104; PULSE 91; RESP 16; TEMP 36.1; BMI 34.4
[2020-10-01 11:24] VITALS: BP 138/88; PULSE 82; RESP 18; TEMP 35.9; BMI 34.4
--- NOTE | 2020-10-01 12:13 | HP.PCM_ITS ---
(1) Psychosis Status: Chronic Code(s): F29 - Unspecified psychosis not due to a substance or known physiological condition (2) Titubation Status: Chronic Code(s): R26.0 - Ataxic gait (3) Depression Status: Chronic Code(s): F32.9 - Major depressive disorder, single episode, unspecified (4) Poor hygiene Status: Chronic Code(s): R46.0 - Very low level of personal hygiene (5) Glaucoma Status: Chronic Code(s): H40.9 - Unspecified glaucoma (6) Obesity (BMI 30.0-34.9) Status: Chronic Code(s): E66.9 - Obesity, unspecified (7) PAD (peripheral artery disease) Status: Chronic Code(s): I73.9 - Peripheral vascular disease, unspecified (8) Paranoid schizophrenia Status: Chronic Code(s): F20.0 - Paranoid schizophrenia (9) History of DVT (deep vein thrombosis) Status: Chronic Code(s): Z86.718 - Personal history of other venous thrombosis and embolism (10) History of pulmonary embolism Status: Chronic Code(s): Z86.711 - Personal history of pulmonary embolism (11) Seizure disorder Status: Chronic Code(s): G40.909 - Epilepsy, unspecified, not intractable, without status epilepticus (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 Code(s): I87.093 - Postthrombotic syndrome with other complications of bilateral lower extremity (13) Lower extremity ulceration Status: Chronic Qualifiers: Laterality: right Non-pressure ulcer stage: with fat layer exposed Qualified Code(s): L97.912 - Non-pressure chronic ulcer of unspecified part of right lower leg with fat layer exposed Code(s): L97.909 - Non-pressure chronic ulcer of unspecified part of unspecified lower leg with unspecified severity (14) Venous stasis ulcer Status: Chronic Qualifiers: Venous stasis ulcer site: calf Varicose vein presence: with varicose veins Laterality: right Non-pressure ulcer stage: with fat layer exposed Qualified Code(s): I83.012 - Varicose veins of right lower extremity with ulcer of calf; L97.212 - Non-pressure chronic ulcer of right calf with fat layer exposed Code(s): I83.009 - Varicose veins of unspecified lower extremity with ulcer of unspecified site; L97.909 - Non-pressure chronic ulcer of unspecified part of unspecified lower leg with unspecified severity (15) Obstructive sleep apnea Status: Chronic Code(s): G47.33 - Obstructive sleep apnea (adult) (pediatric) (16) Right arm weakness Status: Chronic Code(s): M62.81 - Muscle weakness (generalized) (17) Tingling of right upper extremity Status: Chronic Code(s): R20.2 - Paresthesia of skin (18) DM type 2 (diabetes mellitus, type 2) Status: Chronic Code(s): E11.9 - Type 2 diabetes mellitus without complications (19) Paroxysmal atrial fibrillation Status: Chronic Code(s): I48.0 - Paroxysmal atrial fibrillation (20) Hyperlipidemia Status: Chronic Code(s): E78.5 - Hyperlipidemia, unspecified (21) Benign hypertension Status: Chronic Code(s): I10 - Essential (primary) hypertension History of Present Illness Date of Service: 10/01/20 Chief Complaint: Ulceration of the right anterior tibial surface History of Wound: This is a 75-year-old -[place] male who presented with an ulceration on the right anterior tibial surface. According to the patient, this is his first episode of lower extremity ulceration. It began as a blister approximately 2 months prior to admission, and ultimately developed into an open wound. Among other things, the patient has used peroxide topically. The ulceration has failed to heal, prompting referral from the patient's primary care physician, Dr. Gutiérrez. The patient claims to sleep in a head-up position. He admits to being limited in his activity. He attributes this to his age. He spends a lot of time each day sitting and watching TV. Patient has a history of deep vein thrombosis on several occasions in the past, as well as 2 documented pulmonary embolisms. He is on systemic anticoagulation with Xarelto. He admits to having swelling in his lower extremities bilaterally. He lives alone. 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 Allergies/Adverse Reactions: Allergies No Known Allergies Allergy (Verified 02/02/16 17:18) Home Medications: Ambulatory Orders Medication Instructions Recorded Amlodipine [Norvasc] 10 mg PO DAILY 02/02/16 Ergocalciferol [Vitamin D] 50,000 unit PO Q7D 02/02/16 Furosemide [Lasix] 40 mg PO DAILY 02/02/16 Lisinopril [Zestril] 10 mg PO DAILY 02/02/16 Potassium Chloride [K-Dur] 20 meq PO DAILY 02/02/16 Quetiapine Fumarate [Seroquel] 50 mg PO QHS 02/02/16 metFORMIN HCl [Glucophage] 1,000 mg PO BIDCM 02/02/16 Doxazosin Mesylate [Cardura] 4 mg PO 09/10/20 Ezetimibe [Zetia] 10 mg PO DAILY 09/10/20 Metformin HCl 500 09/10/20 - Family History Maternal Stroke, - - Hypertension, diabetes mellitus Paternal No pertinent history Smoking Status: Never smoker Tobacco Use: Non-smoker Review of Systems Constitutional: Denies: Chills, Fever, Weight Change Eyes: Denies: Pain, Vision Change HEENT: Denies: Difficulty Hearing, Difficulty Swallowing, Sinus Congestion Cardiovascular: Denies: Chest Pain, Palpitations Respiratory: Denies: Cough, Shortness of Breath Gastrointestinal: Denies: Diarrhea, Nausea, Vomiting Genitourinary: Denies: Dysuria, Hematuria Endocrine: Denies: Heat/ Cold Intolerance, Polydipsia, Polyuria Hematologic/ Lymphatic: Denies: Easy Bruising, Easy Bleeding - Physical Exam Vital Signs Temp Pulse Resp BP 96.7 F L 82 18 138/88 H 10/01/20 11:24 10/01/20 11:24 10/01/20 11:24 10/01/20 11:24 General: Alert, Oriented x3, Cooperative, No apparent distress, Well developed, Well nourished HEENT: Atraumatic, PERRLA, EOMI, Normocephalic Oral: Moist Mucosa Neck: No JVD Lungs: Normal air movement Abdomen: Non-Distended Extremities: No clubbing, No cyanosis, No Calf Tenderness, - - Minimal swelling and edema is noted in the patient's lower extremities. The ulceration on the right anterior tibial surface appears completely healed and epithelialized. Addt'l Wound Findings: The ulceration on the right anterior tibial surface is now completely healed and epithelialized. Wound Measurements and Assessment WC - Nurse 1 - General Ulcer Measurement Start: 09/24/20 10:16 Freq: Status: Active Protocol: Activity Type Activity Date Activity User E-Sign Co-Sign Detail Recorded Client Recorded Date Recorded By Document 10/01/20 11:24 [facility] [id number] 10/01/20 11:34 [facility] 10/01/20 11:24 Wound Center Nurse 1 [Ulcer Assessment] #1 R Garcia -Combined with other wound No -Current Size (cm) - Length 0.1 -Current Size (cm) - Width 0.1 -Current Size (cm) - Depth 0.1 -Total Square Cm 0.01 -Epithelialization Large 67-100% -Texture (Mirtha-wound Skin Appearance) Assessed -Moisture (Mirtha-wound Skin Appearance Assessed ) -Color (Mirtha-wound Skin Appearance) Assessed -Temperature (Mirtha-wound Skin No Abnormality Appearance) (Pt Warm) -Tenderness on Palpation (Mirtha-wound No Skin Appearance) -Ulcer Cleansing soapy water -Foul Odor after Cleansing No -Anesthetic Used 5% Lidocaine Gel [Edema Assessment] -Right Calf (cm) 38.9 -Right Ankle (cm) 23.3 Musculoskeletal: No Muscle Wasting Neurological: Cranial nerves II-XII grossly intact, Neuro grossly intact Psych/Mental Status: Normal Affect, Appropriate, Alert and oriented to time, place, person, mood and affect Debridement Note Post-Debridement Measurements/Treatment WC - Nurse 2 - General Ulcer CM Notes Start: 09/24/20 10:16 Freq: Status: Active Protocol: Activity Type Activity Date Activity User E-Sign Co-Sign Detail Recorded Client Recorded Date Recorded By Document 09/24/20 16:21 PL [id number] 09/24/20 16:22 PL 09/24/20 16:21 Wound Center Nurse 2 #1 R Garcia -Time 10:35 -Correct Patient Yes -Correct Side, Site, Position Yes -Correct Procedure Yes -Procedure Performed Yes -Type of Procedure Debridement -Clinical Debridement Subcutaneous -Tissue Removed Subcutaneous -Post Debridement (cm) - Length 0.4 -Post Debridement (cm) - Width 0.3 -Post Debridement (cm) - Depth 0.2 -Total Square (Post) (cm) 0.12 -Area of Debridement (cm) - Length 0.4 -Area of Debridement (cm) - Width 0.3 -Total Square (Area) (cm) 0.12 -Tunneling No -Undermining/Tunneling No -Circular Undermining No -Wound/Ulcer Outcome Not Healed -Ulcer Cleansing Rinsed/ Irrigated with Saline -Foul Odor after Cleansing No -Bioengineered Tissue No -Bleeding Controlled with Pressure -Treatment Response Procedure Tolerated Well -Debridement - Subq, 1st 20sq cm Yes Pain Scale: 0-10 Numeric Is Patient Pain Free? Yes WC - Nurse 3 - General Ulcer D/C NN Start: 09/24/20 10:16 Freq: Status: Active Protocol: Activity Type Activity Date Activity User E-Sign Co-Sign Detail Recorded Client Recorded Date Recorded By Document 09/24/20 11:00 DL [id number] 09/24/20 11:01 DL Document 09/27/20 11:49 [facility] [id number] 09/27/20 11:50 [facility] 09/24/20 09/27/20 11:00 11:49 Wound Care Nurse 3 #1 R Garcia -Ulcer Cleansing Wound Cleanser -Foul Odor after Cleansing No -Primary Dressing Applied Other -Other Dressing leg lotioned -Primary Dressing Covered/Secured with Dry Gauze Dry Gauze Right -Lotion applied to leg before Yes compression wrap -Multi-Layered Wrap Application Multi-Layer Multi-Layer Comp - Right ($ Comp - Right ($ ) ) Treatment Response Procedure Procedure Tolerated Well Tolerated Well Vital Signs Temperature (97.8 F-99.1 F) 96.9 F L Temperature Source Temporal Pulse Rate (60-100) 91 Pulse Location Monitor Respiratory Rate (12-18) 16 Respiratory rate source Observation Oxygen Delivery Method Room Air Blood Pressure (90/60-120/80) 139/104 H Blood Pressure Mean (mm Hg) 115 Source Monitor Position Sitting Blood Pressure Location Left Arm Pain Scale: 0-10 Numeric Is Patient Pain Free? Yes WC - Visit Discharge Discharge Condition Stable Stable Ambulatory Status Ambulatory,Cane Ambulatory,Cane Transportation Private Auto No debridement was completed today - There are no open wounds or ulcerations. 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 This may well be related to his apparent chronic venous disease and chronic dependency. The patient has multiple pre-existing medical problems, listed above. In addition, recent laboratory studies have been performed, on August 22, 2020. Results are as follows: Total protein 7.5, serum albumin 4.1, calcium 9.2, alkaline phosphatase 154, AST 22, glucose 376, BUN 10, creatinine 0.75, sodium 136, potassium 4.4, chloride 98, ALT 13, white blood count 6.7, hemoglobin 14.8, hematocrit 46.8, platelets 193, hemoglobin A1c 11.9. The patient appears to be somewhat confused. We had recommended and provided collagen hydrogel to be applied topically on a daily basis by the patient. However, he indicated that he had been using some wound healing product that he has at home, rather than the collagen hydrogel which was recommended. The nature of the product he has been using was not known. He claimed to be using it because it is more convenient. He had also been using hydrogen peroxide topically, despite admonitions not to do so. Plan: At this juncture, the ulceration on the right anterior tibial surface is completely healed and epithelialized. Therefore, the patient is to be discharged from our facility. He will follow-up in the future as needed. A lengthy discussion has been undertaken with the patient. He has been advised to continue elevating his lower extremities as much as possible. Elevation is to be to heart level, or higher. This has been explained in detail. The patient is to sleep with his legs at heart level. He is to devote as much time as possible to elevation during daytime hours as well. Activity has been enc ouraged. Prolonged idle sitting has been discouraged. Weight loss has been recommended. We have also discussed options with regard to long-term compression. Unfortunately, the patient lives alone, and has a very limited support system. He has no local family members. We have considered the options of management relative to compression, and we have provided the patient with a prescription for compression stockings of 10 to 15 mmHg compression. The patient has been advised to use both stockings on the right lower extremity, 1 on top of the other. This will provide a total of 20 to 30 mmHg compression in the right lower extremity, which is felt to be the optimal degree of compression. Compression stockings of 20 to 30 mmHg compression will likely exceed that which the patient will be able to don by himself. The patient has been advised to optimize his nutritional intake. He has also been advised to optimize his glycemic control, and to collaborate with his primary care physicia n in this regard. There is question as to the likelihood that the patient will comply with recommendations long-term. A noninvasive lower extremity arterial study has been performed, revealing evidence of mild arterial occlusive disease in the right lower extremity. Influenza vaccine was not administered today. The patient is not a smoker. Patient weighs 246 pounds. He stands 5 feet 11 inches tall. His BMI is 34.4. Weight loss has been recommended, in collaboration with his primary care physician has been advised.
== END 2020-10-01 12:24 | disposition home or self-care (01) ==
LOC: WC 11:30
PROVIDERS: PCP Internal Medicine; Referring Provider Surgery; Visit Provider Surgery
DX: I83.012 Varicose veins of right lower extremity with ulcer of calf (principal); L97.212 Non-pressure chronic ulcer of right calf with fat layer exposed; G47.33 Obstructive sleep apnea (adult) (pediatric); M62.81 Muscle weakness (generalized); L97.912 Non-pressure chronic ulcer of unspecified part of right lower leg with fat layer exposed; I87.093 Postthrombotic syndrome with other complications of bilateral lower extremity; G40.909 Epilepsy, unspecified, not intractable, without status epilepticus; I73.9 Peripheral vascular disease, unspecified; E66.9 Obesity, unspecified; F20.0 Paranoid schizophrenia; H40.9 Unspecified glaucoma; F32.9 Major depressive disorder, single episode, unspecified; R26.0 Ataxic gait; F29 Unspecified psychosis not due to a substance or known physiological condition; Z86.711 Personal history of pulmonary embolism; Z86.718 Personal history of other venous thrombosis and embolism; Z68.34 Body mass index [BMI] 34.0-34.9, adult; Z79.84 Long term (current) use of oral hypoglycemic drugs; Z82.49 Family history of ischemic heart disease and other diseases of the circulatory system; E11.621 Type 2 diabetes mellitus with foot ulcer; E78.5 Hyperlipidemia, unspecified; I10 Essential (primary) hypertension; E11.51 Type 2 diabetes mellitus with diabetic peripheral angiopathy without gangrene
CPT/HCPCS: 11042; 29581; 99212; G0463

== ENCOUNTER 2021-01-20 13:03 | Emergency (ER) | payer MEDICARE, OTHER, SELFPAY ==
[2021-01-20 13:04] VITALS: BP 143/81; PULSE 91; RESP 18; TEMP 36.6; O2SAT 98; BMI 34.8
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
--- NOTE | 2021-01-20 13:34 | RAD_ITS ---
STUDY: X-RAY - LEFT FOOT CLINICAL: Male, 75 years old. Great toe pain, swelling TECHNIQUE: 3 view(s) of the foot. COMPARISON: None. FINDINGS: There is a plantar calcaneal spur. Normal visualized subtalar, talonavicular, calcaneocuboid, tarsal and tarsometatarsal articulations. There is demineralization of the metatarsi. There is degenerative arthrosis of the metatarsophalangeal joint of the hallux . Normal tibial and fibular sesamoid bones. Normal interphalangeal joint of the great toe. Normal phalanges of the great toe. Normal second through fifth metatarsophalangeal joints. Normal interphalangeal joints and phalanges of the lesser toes. Soft tissue swelling overlying the first metatarsal phalangeal joint. RAD/Foot min 3 Views IMPRESSION: Osteopenia. Mild degree of joint space narrowing overlying the first metatarsophalangeal joint with soft tissue swelling. Electronically Signed: Juancarlos Sosa MD at 13:42 EST , Service support ,
--- NOTE | 2021-01-20 13:44 | DCINST.ED_ITS ---
ED Disposition - Plan for ED Patient: Instructions: ED Blister (Adult), Cellulitis Prescriptions: Cephalexin [Keflex] 500 mg PO Q6 #40 cap Transmission Status: Pending to [facility] Referrals: Gregorio Gutiérrez MD [Primary Care Provider] - Bola Wilkes DPM [STAFF PHYSICIAN] - 3-5 Days
[2021-01-20 13:55] VITALS: BP 145/105; PULSE 94; RESP 16; O2SAT 96
[2021-01-20] MEDS: Cephalexin 250 MG Capsule 500 MG PO (14:10)
== END 2021-01-20 14:18 | disposition home or self-care (01) ==
LOC: ED 13:30
PROVIDERS: Emergency Provider Emergency Medicine; PCP Internal Medicine
DX: L03.116 Cellulitis of left lower limb (principal); S90.822A Blister (nonthermal), left foot, initial encounter; E11.51 Type 2 diabetes mellitus with diabetic peripheral angiopathy without gangrene; E78.00 Pure hypercholesterolemia, unspecified; F20.9 Schizophrenia, unspecified; G47.33 Obstructive sleep apnea (adult) (pediatric); I10 Essential (primary) hypertension; I48.91 Unspecified atrial fibrillation; X58.XXXA Exposure to other specified factors, initial encounter; Y93.9 Activity, unspecified; Y92.89 Other specified places as the place of occurrence of the external cause; Y99.9 Unspecified external cause status
CPT/HCPCS: 73630; 87070; 87205; 99282

== ENCOUNTER 2021-01-25 10:54 | Emergency (ER) | payer MEDICARE, OTHER, SELFPAY ==
[2021-01-25 10:55] VITALS: BP 152/85; PULSE 91; RESP 17; TEMP 36.2; O2SAT 97; BMI 36.2
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
--- NOTE | 2021-01-25 11:14 | ED.DEP ---
ED Disposition - Plan for ED Patient: Instructions: ED Blister (Adult), ED First- and [facility] ... Referrals: Gregorio Gutiérrez MD [Primary Care Provider] - Keep Eli appointment
== END 2021-01-25 11:34 | disposition home or self-care (01) ==
PROVIDERS: Emergency Provider Emergency Medicine; PCP Internal Medicine
DX: S90.421D Blister (nonthermal), right great toe, subsequent encounter (principal); W29.2XXD Contact with other powered household machinery, subsequent encounter; E11.9 Type 2 diabetes mellitus without complications; E78.00 Pure hypercholesterolemia, unspecified; I10 Essential (primary) hypertension; I48.0 Paroxysmal atrial fibrillation
CPT/HCPCS: 99282

== ENCOUNTER 2021-02-07 11:00 | Outpatient (RCR) | payer MEDICARE, OTHER, SELFPAY ==
[2021-01-31 08:13] VITALS: BP 152/97; PULSE 98; RESP 18; TEMP 35.5; BMI 33.5
--- NOTE | 2021-01-31 12:39 | PCM.WC.HP ---
(1) Blister of right foot Status: Acute Code(s): S90.821A - Blister (nonthermal), right foot, initial encounter (2) Venous insufficiency Status: Chronic Code(s): I87.2 - Venous insufficiency (chronic) (peripheral) (3) DM type 2 (diabetes mellitus, type 2) Status: Chronic Qualifiers: Diabetes mellitus superintendent marine oil terminal insulin use: without superintendent marine oil terminal use Diabetes mellitus complication status: with neurologic complications Diabetes mellitus complication detail: with polyneuropathy Qualified Code(s): E11.42 - Type 2 diabetes mellitus with diabetic polyneuropathy Code(s): E11.9 - Type 2 diabetes mellitus without complications (4) Benign hypertension Status: Chronic Code(s): I10 - Essential (primary) hypertension (5) PAD (peripheral artery disease) Status: Chronic Code(s): I73.9 - Peripheral vascular disease, unspecified (6) History of pulmonary embolism Status: Chronic Code(s): Z86.711 - Personal history of pulmonary embolism History of Present Illness Date of Service: 01/31/21 Chief Complaint: Ulceration of the right anterior tibial surface History of Wound: This is a 75-year-old -[place] African male who presents to the wound healing center today (01/31/2021) for an initial evaluation of blisters to his right and left feet. The patient has a medical history significant for type 2 diabetes mellitus, paroxysmal atrial fibrillation, history of pulmonary embolism, history of DVT, venous insufficiency, peripheral artery disease, hypertension and hyperlipidemia. On 01/20/2021, the patient presented to the emergency department with swelling of his left great toe which he had noticed 4 days prior. He had denied any trauma to his foot, but later noted that he sleeps with a space heater by his feet at night, and believes the blisters to be the result of getting too close to the space heater while sleeping. He popped the blister of his left foot with a needle, and drained a large amount of fluid from the blister. He was placed on Keflex, and a wound culture was collected which was negative. A left foot x-ray was obtained which demonstrated mild degenerative changes and osteopenia, but no evidence of osteomyelitis. On 01/25/2021, he again reported to the emergency department, this time for swelling of his right great toe which had occurred 2 to 3 days prior. His Keflex was continued, and he was advised not to drain his blister due to risk of infection. Today, the patient's left foot blister is healed, and there is no open wound and there are no clinical signs of infection. His right foot blister remains intact. There are no clinical signs of infection in the right foot. He reports he has been applying burn cream to his left foot. He has not been using dressings to his right foot. He has not had any recent blood work. He had arterial studies of his bilateral lower extremities in August 2020 which demonstrated mild to moderate arterial occlusive disease in the left lower extremity and mild arterial occlusive disease in the right lower extremity. A venous ultrasound of the bilateral lower extremities in 2012 demonstrated chronic deep vein thrombosis in the left femoral vein, popliteal vein, tibioperoneal trunk and posterior tibial vein. Valvular incompetence was noted in the right femoral vein, popliteal vein, tibioperoneal trunk, and posterior tibial vein. Acute superficial thrombophlebitis was noted in the superficial varicosities of the left calf. The patient denies any fever, chills, nausea, vomiting, or diarrhea. Denies any increasing pain, redness, swelling, or purulent/malodorous drainage from affected area. 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 Allergies/Adverse Reactions: Allergies No Known Allergies Allergy (Verified 01/31/21 08:29) Home Medications: Ambulatory Orders Medication Instructions Recorded Amlodipine [Norvasc] 10 mg PO DAILY 02/02/16 Ergocalciferol [Vitamin D] 50,000 unit PO Q7D 02/02/16 Furosemide [Lasix] 40 mg PO DAILY 02/02/16 Lisinopril [Zestril] 10 mg PO DAILY 02/02/16 Potassium Chloride Oral Tablet 20 meq PO DAILY 02/02/16 [K-Dur] Quetiapine Fumarate [Seroquel] 50 mg PO QHS 02/02/16 metFORMIN HCl [Glucophage] 1,000 mg PO BIDCM 02/02/16 Doxazosin Mesylate [Cardura] 4 mg PO 09/10/20 Ezetimibe [Zetia] 10 mg PO DAILY 09/10/20 Metformin HCl 500 mg PO BID 09/10/20 Cephalexin [Keflex] 500 mg PO Q6 #40 cap 01/20/21 - Family History Maternal Stroke, - - Hypertension, diabetes mellitus Paternal No pertinent history Smoking Status: Never smoker Review of Systems Constitutional: Denies: Chills, Fever Eyes: Denies: Eyelid Inflammation, Redness HEENT: Denies: Difficulty Hearing, Difficulty Swallowing, Sinus Congestion Cardiovascular: Denies: Chest Pain, Palpitations Respiratory: Denies: Cough, Shortness of Breath, Wheezing Gastrointestinal: Denies: Diarrhea, Nausea, Vomiting Genitourinary: Denies: Dysuria, Hematuria Musculoskeletal: Denies: Foot Pain Neurological: Reports: Numbness, Tingling - Bilateral feet Endocrine: Reports: - - Type 2 diabetes mellitus Hematologic/ Lymphatic: Denies: Easy Bruising, Easy Bleeding - On Xarelto due to history of pulmonary embolism and DVT - Physical Exam Vital Signs Temp Pulse Resp BP 96 F L 98 18 152/97 H 01/31/21 08:13 01/31/21 08:13 01/31/21 08:13 01/31/21 08:13 General: Alert, Cooperative, No apparent distress HEENT: Atraumatic, Normocephalic Oral: Moist Mucosa Neck: Supple, Trachea Midline Lungs: Clear to auscultation, Normal air movement, No rhonchi, No wheeze, No rales Cardiovascular: Regular rate, Regular Rhythm Abdomen: Bowel Sounds Present, Soft, Non-Distended Extremities: No clubbing, No cyanosis, No edema, Capillary Refill Less than 3 Seconds, Peripheral Pulses Normal Skin: - - New, healthy skin is present at the site of the previous left foot blister. There are no open wounds of the left foot. There is a large, fluid-filled blister of the right foot without clinical signs of infection. No periblister erythema, swelling or warmth. Wound Measurements and Assessment WC - Nurse 1 - General Ulcer Measurement Start: 01/31/21 08:12 Freq: Status: Active Protocol: Activity Type Activity Date Activity User E-Sign Co-Sign Detail Recorded Client Recorded Date Recorded By Document 01/31/21 08:13 [facility] [id number] 01/31/21 08:29 [facility] 01/31/21 08:13 Wound Center Nurse 1 [Ulcer Assessment] #3- R GR TOE/DORSAL FOOT BLISTER ( ELECTRIC HEATER BURN) -Combined with other wound No -Current Size (cm) - Length 0.1 -Current Size (cm) - Width 0.1 -Current Size (cm) - Depth 0.1 -Total Square Cm 0.01 -Wound Margin Distinct, Outline Attached -Ulcer Cleansing SOAPY WATER -Foul Odor after Cleansing No #2- L GREAT TOE (ELECTRIC HEATER BURN) -Combined with other wound No -Current Size (cm) - Length 3.2 -Current Size (cm) - Width 1.8 -Current Size (cm) - Depth 0.1 -Total Square Cm 5.76 -Date of Last Picture (Recall this 01/31/21 field) -Photo Taken Yes -Epithelialization Large 67-100% -Tunneling No -Undermining/Tunneling No -Circular Undermining No -Exudate Amt None Present -Wound Margin Distinct, Outline Attached -Granulation Amt Large (67-100%) -Granulation Quality [place] -Texture (Mirtha-wound Skin Appearance) Assessed, Scarring -Moisture (Mirtha-wound Skin Appearance Assessed,Dry/ ) Scaly -Color (Mirtha-wound Skin Appearance) Assessed -Temperature (Mirtha-wound Skin No Abnormality Appearance) (Pt Warm) -Tenderness on Palpation (Mirtha-wound No Skin Appearance) -Ulcer Cleansing SOAPY WATER -Foul Odor after Cleansing No -Anesthetic Used 4% Lidocaine Solution [Edema Assessment] -Lower Limb Edema Present Yes -Right Calf (cm) 40.6 -Right Ankle (cm) 26.2 -Left Calf (cm) 37.2 -Left Ankle (cm) 26.4 AIDA - Nurse 3 - General Ulcer D/C NN Start: 01/31/21 08:12 Freq: Status: Active Protocol: Activity Type Activity Date Activity User E-Sign Co-Sign Detail Recorded Client Recorded Date Recorded By Document 01/31/21 09:11 KR [id number] 01/31/21 09:12 KR 01/31/21 09:11 Wound Care Nurse 3 [Wound Dressing] #3- R GR TOE/DORSAL FOOT BLISTER ( ELECTRIC HEATER BURN) -Primary Dressing Applied NonAdherent Contact Layer -Primary Dressing Covered/Secured Dry Gauze, with Secured with Tape #2- L GREAT TOE (ELECTRIC HEATER BURN) -Primary Dressing Covered/Secured Dry Gauze,Dry with Gauze & Roll Gauze,Secured with Tape Pain Scale: 0-10 Numeric [Pain] -Is Patient Pain Free? Yes WC - Visit Discharge [Visit Discharge Information] -Discharge Condition Stable -Ambulatory Status Cane -Transportation Private Auto Musculoskeletal: Muscle Wasting Neurological: Neuro grossly intact Psych/Mental Status: Normal Affect, Appropriate Debridement Note Post-Debridement Measurements/Treatment - Nurse 3 - General Ulcer D/C NN Start: 01/31/21 08:12 Freq: Status: Active Protocol: Activity Type Activity Date Activity User E-Sign Co-Sign Detail Recorded Client Recorded Date Recorded By Document 01/31/21 09:11 KR [id number] 01/31/21 09:12 KR 01/31/21 09:11 Wound Care Nurse 3 #3- R GR TOE/DORSAL FOOT BLISTER ( ELECTRIC HEATER BURN) -Primary Dressing Applied NonAdherent Contact Layer -Primary Dressing Covered/Secured with Dry Gauze, Secured with Tape #2- L GREAT TOE (ELECTRIC HEATER BURN) -Primary Dressing Covered/Secured with Dry Gauze,Dry Gauze & Roll Gauze,Secured with Tape Pain Scale: 0-10 Numeric Is Patient Pain Free? Yes WC - Visit Discharge Discharge Condition Stable Ambulatory Status Cane Transportation Private Auto No debridement was completed today Assessment/Plan Active Problems PAD (peripheral artery disease) (Chronic) History of pulmonary embolism (Chronic) Blister of right foot (Acute) Venous insufficiency (Chronic) DM type 2 (diabetes mellitus, type 2) (Chronic) Benign hypertension (Chronic) Assessment: See above Plan: Patient was evaluated today in the clinic and updated on the plan of care. No debridement was performed today. The blister of the left foot is healed, with no residual open wound. This will be covered with Adaptic for protection, which is to be changed daily or more frequently as needed due to contamination. Patient is to cleanse the left foot daily with antibacterial soap and water. The right foot blister is large and intact. The right foot will be wrapped gently with Kerlix dressing. A surgical shoe will be given to prevent friction from patient's slippers against the blister. The patient was again advised not to drain the blister, as this may introduce infection. He was instructed to notify us if the blister ruptures. If the blister ruptures, he was advised to clean the right foot daily with antibacterial soap and water and to keep the right foot covered with clean gauze or Kerlix dressing. Off-loading: The patient was instructed to keep his feet elevated at or above chest level when seated. He was advised to avoid prolonged standing or dangling of the legs. Diet: Patient encouraged to increase protein and vitamin C intake while taking caution to avoid high carbohydrate and/or sugar intake. Labs/cultures/imaging: The patient has completed a course of Keflex. There are no clinical signs of infection today, and further antibiotic treatment will be deferred. Cultures reviewed as noted above. Routine baseline labwork ordered. Previous vascular studies reviewed as noted above. Follow-up: Return to clinic in 1 week for re-evaluation. Return sooner or report to the emergency room should symptoms worsen, or new symptoms arise. Note: [employer] speech recognition laborer electroplating software was used to create portions of this document. Sound-alike and misspelled words, as well as other laborer electroplating errors may be contained in the documentation. Office Visits / Consults: [id number] OV L4 Est
[2021-02-07 11:00] VITALS: BP 143/96; PULSE 97; TEMP 36.3; BMI 33.5
--- NOTE | 2021-02-07 14:43 | PN.PCM_ITS ---
(1) Blister of right foot Status: Resolved Code(s): S90.821A - Blister (nonthermal), right foot, initial encounter (2) Venous insufficiency Status: Chronic Code(s): I87.2 - Venous insufficiency (chronic) (peripheral) (3) DM type 2 (diabetes mellitus, type 2) Status: Chronic Qualifiers: Diabetes mellitus senior living insulin use: without buttermilk drier operator use Diabetes mellitus complication status: with neurologic complications Diabetes mellitus complication detail: with polyneuropathy Qualified Code(s): E11.42 - Type 2 diabetes mellitus with diabetic polyneuropathy Code(s): E11.9 - Type 2 diabetes mellitus without complications (4) Benign hypertension Status: Chronic Code(s): I10 - Essential (primary) hypertension (5) PAD (peripheral artery disease) Status: Chronic Code(s): I73.9 - Peripheral vascular disease, unspecified (6) History of pulmonary embolism Status: Chronic Code(s): Z86.711 - Personal history of pulmonary embolism Type of Wound Date of Service: 02/07/21 Chief Complaint: Right foot blister History of Wound: This is a 75-year-old -[place] male who presents to the wound healing center today (01/31/2021) for an initial evaluation of blisters to his right and left feet. The patient has a medical history significant for type 2 diabetes mellitus, paroxysmal atrial fibrillation, history of pulmonary embolism, history of DVT, venous insufficiency, peripheral artery disease, hypertension and hyperlipidemia. On 01/20/2021, the patient presented to the emergency department with swelling of his left great toe which he had noticed 4 days prior. He had denied any trauma to his foot, but later noted that he sleeps with a space heater by his feet at night, and believes the blisters to be the result of getting too close to the space heater while sleeping. He popped the blister of his left foot with a needle, and drained a large amount of fluid from the blister. He was placed on Keflex, and a wound culture was collected which was negative. A left foot x-ray was obtained which demonstrated mild degenerative changes and osteopenia, but no evidence of osteomyelitis. On 01/25/2021, he again reported to the emergency department, this time for swelling of his right great toe which had occurred 2 to 3 days prior. His Keflex was continued, and he was advised not to drain his blister due to risk of infection. Today, the patient's left foot blister is healed, and there is no open wound and there are no clinical signs of infection. His right foot blister remains intact. There are no clinical signs of infection in the right foot. He reports he has been applying burn cream to his left foot. He has not been using dressings to his right foot. He has not had any recent blood work. He had arterial studies of his bilateral lower extremities in August 2020 which demonstrated mild to moderate arterial occlusive disease in the left lower extremity and mild arterial occlusive disease in the right lower extremity. A venous ultrasound of the bilateral lower extremities in 2012 demonstrated chronic deep vein thrombosis in the left femoral vein, popliteal vein, tibioperoneal trunk and posterior tibial vein. Valvular incompetence was noted in the right femoral vein, popliteal vein, tibioperoneal trunk, and posterior tibial vein. Acute superficial thrombophlebitis was noted in the superficial varicosities of the left calf. The patient denies any fever, chills, nausea, vomiting, or diarrhea. Denies any increasing pain, redness, swelling, or purulent/malodorous drainage from affected area. Progress of Wound: The patient's right foot blister ruptured yesterday. Devitalized tissue removed today. There are no open wounds to the feet today. The patient denies any fever, chills, nausea, vomiting, or diarrhea. Denies any increasing pain, redness, swelling, or purulent/malodorous drainage from affected area. - Physical Exam Vital Signs Temp Pulse Resp BP 97.4 F L 97 18 143/96 H 02/07/21 11:00 02/07/21 11:00 01/31/21 08:13 02/07/21 11:00 General: Alert, Cooperative, No apparent distress HEENT: Atraumatic, Normocephalic Oral: Moist Mucosa Neck: Supple Lungs: Normal air movement Extremities: No clubbing, No cyanosis, No edema, Capillary Refill Less than 3 Seconds, Peripheral Pulses Normal Skin: No rashes, No breakdown, - Wound Measurements and Assessment WC - Nurse 1 - General Ulcer Measurement Start: 01/31/21 08:12 Freq: Status: Active Protocol: Activity Type Activity Date Activity User E-Sign Co-Sign Detail Recorded Client Recorded Date Recorded By Document 02/07/21 11:00 KR [id number] 02/07/21 11:05 KR 02/07/21 11:00 Wound Center Nurse 1 [Ulcer Assessment] #3- R GR TOE/DORSAL FOOT BLISTER ( ELECTRIC HEATER BURN) -Current Size (cm) - Length 0.1 -Current Size (cm) - Width 0.1 -Current Size (cm) - Depth 0.1 -Total Square Cm 0.01 -Exudate Amt Medium -Exudate Type Serosanguineous -Wound Margin Distinct, Outline Attached -Granulation Amt Large (67-100%) -Granulation Quality [place] -Slough/Fibrin No -Necrosis Amt None Present (0 %) -Texture (Mirtha-wound Skin Appearance) Assessed, Scarring -Moisture (Mirtha-wound Skin Appearance Assessed,Dry/ ) Scaly -Color (Mirtha-wound Skin Appearance) No Abnormality, Assessed -Temperature (Mirtha-wound Skin No Abnormality Appearance) (Pt Warm) -Tenderness on Palpation (Mirtha-wound No Skin Appearance) -Ulcer Cleansing Rinsed/ Irrigated with Saline -Foul Odor after Cleansing No -Anesthetic Used 4% Lidocaine Solution #2- L GREAT TOE (ELECTRIC HEATER BURN) -Current Size (cm) - Length 0.1 -Current Size (cm) - Width 0.1 -Current Size (cm) - Depth 0.1 -Total Square Cm 0.01 -Exudate Amt Small -Exudate Type Serosanguineous -Wound Margin Distinct, Outline Attached -Granulation Amt Large (67-100%) -Granulation Quality [place] -Slough/Fibrin No -Necrosis Amt None Present (0 %) -Texture (Mirtha-wound Skin Appearance) Assessed, Scarring -Moisture (Mirtha-wound Skin Appearance No Abnormality, ) Assessed -Color (Mirtha-wound Skin Appearance) No Abnormality, Assessed -Tenderness on Palpation (Mirtha-wound No Skin Appearance) -Ulcer Cleansing Rinsed/ Irrigated with Saline -Foul Odor after Cleansing No -Anesthetic Used 5% Lidocaine Gel WC - Nurse 2 - General Ulcer CM Notes Start: 01/31/21 08:12 Freq: Status: Active Protocol: Activity Type Activity Date Activity User E-Sign Co-Sign Detail Recorded Client Recorded Date Recorded By Document 02/07/21 14:19 PL [id number] 02/07/21 14:23 PL 02/07/21 14:19 Wound Center Nurse 2 [Procedure/Treatment] #3- R GR TOE/DORSAL FOOT BLISTER ( ELECTRIC HEATER BURN) -Time 11:45 -Correct Patient Yes -Correct Side, Site, Position Yes -Correct Procedure Yes -Procedure Performed Yes -Type of Procedure Debridement -Clinical Debridement Epidermis / Dermis -Tissue Removed Epidermis, Dermis -Post Debridement (cm) - Length 0.1 -Post Debridement (cm) - Width 0.1 -Post Debridement (cm) - Depth 0.1 -Total Square (Post) (cm) 0.01 -Area of Debridement (cm) - Length 0.1 -Area of Debridement (cm) - Width 0.1 -Total Square (Area) (cm) 0.01 -Tunneling No -Undermining/Tunneling No -Circular Undermining No -Wound/Ulcer Outcome Healed- Epithelialized -Ulcer Cleansing Rinsed/ Irrigated with Saline -Foul Odor after Cleansing No -Bioengineered Tissue No -Bleeding Controlled with NA -Debridement - Open, 1st 20sq cm Yes #2- L GREAT TOE (ELECTRIC HEATER BURN) -Procedure Performed No -Wound/Ulcer Outcome Healed- Epithelialized -Bleeding Controlled with NA [See Physician Procedure note for Specifics] Pain Scale: 0-10 Numeric [Pain] -Is Patient Pain Free? Yes Psych/Mental Status: Normal Affect, Appropriate Debridement Note Post-Debridement Measurements/Treatment WC - Nurse 2 - General Ulcer CM Notes Start: 01/31/21 08:12 Freq: Status: Active Protocol: Activity Type Activity Date Activity User E-Sign Co-Sign Detail Recorded Client Recorded Date Recorded By Document 01/31/21 14:19 PL [id number] 01/31/21 14:20 PL Document 02/07/21 14:19 PL [id number] 02/07/21 14:23 PL 01/31/21 02/07/21 14:19 14:19 Wound Center Nurse 2 #3- R GR TOE/DORSAL FOOT BLISTER ( ELECTRIC HEATER BURN) -Time 11:45 -Correct Patient Yes -Correct Side, Site, Position Yes -Correct Procedure Yes -Procedure Performed No Yes -Type of Procedure Debridement -Clinical Debridement Epidermis / Dermis -Tissue Removed Epidermis, Dermis -Post Debridement (cm) - Length 0.1 -Post Debridement (cm) - Width 0.1 -Post Debridement (cm) - Depth 0.1 -Total Square (Post) (cm) 0.01 -Area of Debridement (cm) - Length 0.1 -Area of Debridement (cm) - Width 0.1 -Total Square (Area) (cm) 0.01 -Tunneling No -Undermining/Tunneling No -Circular Undermining No -Wound/Ulcer Outcome Healed- Epithelialized -Ulcer Cleansing Rinsed/ Irrigated with Saline -Foul Odor after Cleansing No -Bioengineered Tissue No -Bleeding Controlled with NA -Debridement - Open, 1st 20sq cm Yes #2- L GREAT TOE (ELECTRIC HEATER BURN) -Procedure Performed No No -Wound/Ulcer Outcome Healed- Epithelialized -Bleeding Controlled with NA Pain Scale: 0-10 Numeric Is Patient Pain Free? Yes Yes - Nurse 3 - General Ulcer D/C NN Start: 01/31/21 08:12 Freq: Status: Active Protocol: Activity Type Activity Date Activity User E-Sign Co-Sign Detail Recorded Client Recorded Date Recorded By Document 01/31/21 09:11 [email or web address] [id number] 01/31/21 09:12 [email or web address] 01/31/21 09:11 Wound Care Nurse 3 #3- R GR TOE/DORSAL FOOT BLISTER ( ELECTRIC HEATER BURN) -Primary Dressing Applied NonAdherent Contact Layer -Primary Dressing Covered/Secured with Dry Gauze, Secured with Tape #2- L GREAT TOE (ELECTRIC HEATER BURN) -Primary Dressing Covered/Secured with Dry Gauze,Dry Gauze & Roll Gauze,Secured with Tape Pain Scale: 0-10 Numeric Is Patient Pain Free? Yes - Visit Discharge Discharge Condition Stable Ambulatory Status Cane Transportation Private Auto Wound debrided: Right foot Laterality: Right Type of Debridement: Selective debridement Tissue Removed: Devitalized tissue Amount of bleeding with debridement: None Patient tolerated procedure well Assessment/Plan Active Problems PAD (peripheral artery disease) (Chronic) History of pulmonary embolism (Chronic) Venous insufficiency (Chronic) DM type 2 (diabetes mellitus, type 2) (Chronic) Benign hypertension (Chronic) Assessment: See above Plan: Patient was evaluated today in the clinic and updated on the plan of care. Devitalized tissue was removed at site of previous right foot blister. The blister has healed, with no open wounds. The blister of the left foot remains healed, with no residual open wound. The patient was instructed to wash his feet daily with antibacterial soap and water and cover with Kerlix dressing for protection. The patient will be discharged from the [facility] wound healing center today. He is instructed to follow-up with podiatry for routine foot care. He may return to the [facility] wound healing center on an as-needed basis should new wounds occur. Note: [employer] speech recognition cracker sprayer software was used to create portions of this document. Sound-alike and misspelled words, as well as other cracker sprayer errors may be contained in the documentation. Office Visits / Consults: [id number] OV L3 Est [id number]: Other Procedure See Report - [id number]
== END 2021-02-19 23:59 ==
LOC: WC 11:00
PROVIDERS: PCP Internal Medicine; Visit Provider Nurse Practitioner Family
DX: S90.821A Blister (nonthermal), right foot, initial encounter (principal); I87.2 Venous insufficiency (chronic) (peripheral); E11.42 Type 2 diabetes mellitus with diabetic polyneuropathy; I10 Essential (primary) hypertension; I73.9 Peripheral vascular disease, unspecified; E11.51 Type 2 diabetes mellitus with diabetic peripheral angiopathy without gangrene; E78.5 Hyperlipidemia, unspecified; I48.0 Paroxysmal atrial fibrillation; Z86.711 Personal history of pulmonary embolism; I80.02 Phlebitis and thrombophlebitis of superficial vessels of left lower extremity; Z86.718 Personal history of other venous thrombosis and embolism
CPT/HCPCS: 97597; 99213; G0463

== ENCOUNTER 2021-03-14 10:26 | Inpatient (IN) | payer MEDICARE, OTHER, SELFPAY ==
[2021-03-14] VITALS (9 sets, daily range): BP systolic 130–149; BP diastolic 92–111; PULSE 72–89; RESP 16–20; TEMP 35.8–36.6; O2SAT 96–100; BMI 35.5; BMI 34.4; BMI 34.5
--- NOTE | 2021-03-14 10:55 | EKG12_ITS ---
Test Reason : Blood Pressure : / mmHG Vent. Rate : 083 BPM Atrial Rate : 076 BPM P-R Int : 000 ms QRS Dur : 092 ms QT Int : 510 ms P-R-T Axes : 000 -62 049 degrees QTc Int : 599 ms Poor data quality, interpretation may be adversely affected Atrial fibrillation Left anterior fascicular block Nonspecific T wave abnormality Prolonged QT Abnormal ECG Confirmed by MIGUEL MIX, MICHAEL ([id number]), copy editor CHRISTIAN PADILLA ([id number]) on 03/17/2021 9:48:14 AM Referred By: Confirmed By:JEROD RIVERA MD
--- NOTE | 2021-03-14 11:01 | ED.VISSUMM ---
- ER Visit Summary Date of Service: 03/14/21 Chief Complaint: Right lower extremity weakness History of Present Illness: The patient is a 75 M presenting with right lower extremity weakness. Patient states he fell this morning because his right leg would not support him. He states that he has had right leg weakness ongoing for the last several days. He has been dragging his leg behind him. He complains of numbness and weakness in his right leg. He denies other weakness or numbness. Denies vision changes. Denies headache. Denies chest pain or shortness of breath. He also has bedbugs. Physical Examination: Vitals are stable. Patient is afebrile. Alert no acute distress. HEENT exam is unremarkable. Neck is supple. Lungs are clear and equal bilaterally. Heart is regular rate and rhythm. Abdomen is soft nontender nondistended. Extremities are unremarkable. Skin is warm and dry. NIH 2: RLE weakness Remainder of exam is unremarkable. Emergency Department Course and Treatment: EKG is sinus with rate of 83, artifact. CT head shows chronic involutional changes of the brain. 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 Chest xray shows no acute pulmonary process. CBC, chemistries unremarkable other than glucose 277. Troponin is negative. EMS was concerned about patient's living conditions. Discussed with hospitalist for admission. Disposition: Admission Impression: Right lower extremity weakness This note was generated with [employer] dictation software. It may contain incorrect words, spelling, and punctuation that were not noted in review of the chart prior to signing ED Disposition - Plan for ED Patient: Referrals: Gregorio Gutiérrez MD [Primary Care Provider] -
--- NOTE | 2021-03-14 11:02 | CT_ITS ---
STUDY: CT BRAIN WITHOUT CONTRAST REASON FOR EXAM: Male, 75 years old. Weakness RADIATION DOSAGE (If Supplied By Facility): CTDIvol = ( 38.43 ) mGy, DLP = ( 770.33 ) mGycm TECHNIQUE: Transaxial CT imaging of the brain was performed without administration of intravenous contrast material. Individualized dose optimization techniques were used for this CT. COMPARISON: 2015 FINDINGS: Normal soft tissue structures. Normal calvarium. Normal size ventricles and extra-axial spaces for the patient''s age. There are areas of decreased attenuation within the white matter tracts of the supratentorial brain, consistent with microvascular disease changes. Old left occipital lobe infarct with encephalomalacia. There are small punctate calcifications of the basal ganglia which are seen in the aging brain as a normal variant. Normal brainstem. Normal cerebellum. There is no intracranial hemorrhage. There are no findings of an acute ischemic infarction. Normal visualized paranasal sinuses. CT/Brain/Head without Contrast IMPRESSION: Chronic involutional changes of the brain. 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
--- NOTE | 2021-03-14 11:05 | RAD_ITS ---
STUDY: X-RAY CHEST REASON FOR EXAM: Male, 75 years old. Worsening shortness of breath TECHNIQUE: Single AP portable view of the chest. COMPARISON: None. FINDINGS: EKG leads overlie the chest The lungs are clear and expanded. There is no demonstrated pleural abnormality. Normal size heart. Normal mediastinum and ej. Normal visualized pulmonary arteries. Normal visualized aortic arch and descending thoracic aorta. There are diffuse degenerative changes of the visualized thoracic spine. There is degenerative osteoarthritis of the bilateral shoulders. There is no demonstrated abnormality of the visualized soft tissue structures of the upper abdomen. RAD/Chest 1 View (Portable) IMPRESSION: No acute pulmonary process. Electronically Signed: Walker Valdez MD at 11:20 EDT , Service support ,
[2021-03-14 11:19] LABS: Absolute Lymphocyte Count 1.58 X10^3/uL (0.83-4.51); Absolute Neutrophil Count 4.4 X10^3/uL (2.0-7.7); Basophil# 0.03 X10^3/uL; Basophil% 0.4 % (0-1); Eosinophil# 0.27 X10^3/uL; Hematocrit 42.8 % (40-54); Hemoglobin 13.5 g/dL (13.0-16.5); Lymphocyte # 1.58 X10^3/ul (0.83-4.51); Lymphocyte % 23.3 % (19-41); Mean Corp Hgb Conc 31.5 g/dL (32-36); Mean Corpuscular Hgb 26.8 pg (27.0-32.0); Mean Corpuscular Volume 84.9 fL (80-94); Monocyte# 0.49 X10^3/uL; Monocyte% 7.2 % (0-10); NRBC Flagged by Analyzer 0 % (0-5); Neutrophil # 4.37 X10^3/uL (2.7-7.7); Neutrophil % 64.5 % (47-70); Platelet Count 166 K/mm3 (150-450); RBC Distribution Width CV 14.4 % (11.6-14.6); RBC Distribution Width SD 43.6 fl (35.1-43.9); Red Blood Count 5.04 M/mm3 (4.6-6.2); White Blood Count 6.8 K/mm3 (4.4-11.0)
[2021-03-14 11:20] LABS: Differential Indicated SCAN CRITERIA MET
[2021-03-14 13:30] LABS: Anion Gap 6 (5-15); BUN 13 mg/dL (7-18); BUN/Creat Ratio 12.7 RATIO (10-20); Calcium,Total 9.5 mg/dL (8.5-10.1); Chloride 102 mmol/L (98-107); Creatinine, Serum 1.02 mg/dL (0.70-1.30); EST Glomerular Filtration Rate 75 mL/min (>60); Est Glom Filt Rate - Afr Amer 91 mL/min (>60); Glucose 277 mg/dL (74-106); Potassium 3.9 mmol/L (3.5-5.1); Sodium Level 135 mmol/L (136-145)
--- NOTE | 2021-03-14 14:17 | HP.PCM_ITS ---
History of Present Illness Date of Admission: 03/14/21 Chief Complaint: right lower extremity weakness The patient is a 75 year old M with a PMh as outlined who was admitted with a complaint of mechanical fall. He complains of pain and swelling in his right knee, and says due to the pain, he has not been able to weight bear on his right knee. Every time he tries to get up and ambulate, he gets pain and has fallen a few times due to the pain and weakness in his right leg and knee. He lives alone and EMS was worried about his home situation; patient also says he has bedbugs. Vitals in the ED showed temperature of 97.5 with blood pressure 138/92, pulse rate of 85 respiratory rate of 19. Was saturating 100% on room air. Chemistry was unremarkable and CBC was also unremarkable. 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 There was concern for stroke when he came in because of the right lower extremity weakness but with his history now being of right knee pain and swelling, it does seem that this is less likely due to pain and more due to debility due to right knee pain likely osteoarthritis. 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) Lower extremity ulceration (Chronic) Venous stasis ulcer (Chronic) Venous insufficiency (Chronic) Obstructive sleep apnea (Chronic) Right arm weakness (Chronic) Tingling of right upper extremity (Chronic) DM type 2 (diabetes mellitus, type 2) (Chronic) Paroxysmal atrial fibrillation (Chronic) Hyperlipidemia (Chronic) Benign hypertension (Chronic) Allergies No Known Allergies Allergy (Verified 03/14/21 10:28) Home Medications: Ambulatory Orders Medication Instructions Recorded Amlodipine [Norvasc] 10 mg PO DAILY 02/02/16 Ergocalciferol [Vitamin D] 50,000 unit PO MARTINEZ 02/02/16 Furosemide [Lasix] 40 mg PO DAILY 02/02/16 Potassium Chloride Oral Tablet 20 meq PO DAILY 02/02/16 [K-Dur] Ezetimibe [Zetia] 10 mg PO DAILY 09/10/20 Metformin HCl 1,000 mg PO BID 09/10/20 Lisinopril [Zestril] 40 mg PO DAILY 03/14/21 Rivaroxaban [Xarelto] 20 mg PO DAILY 03/14/21 Surgical History: herniorrhaphy - The patient has had bilateral inguinal hernia repairs. Psychiatric History: - - Patient has a past medical history of psychosis, he states that he was told to take a medication for this but refuses to take it. Smoking Status: Never smoker - *Family History Maternal History Items: Stroke, - - Hypertension, diabetes mellitus Paternal History Items: No pertinent history Review of Systems Constitutional: Denies: Chills, Fever, Malaise, Weakness, Weight Change Eyes: Denies: Blurred vision HEENT: Denies: Head Aches, Sinus Congestion, Sinus Drainage Cardiovascular: Denies: Chest Pain, Palpitations Respiratory: Denies: Cough, Shortness of Breath, Shortness of breath at rest, Sputum production Gastrointestinal: Denies: Abdominal Pain, Nausea, Vomiting Genitourinary: Denies: Dysuria Musculoskeletal: Reports: Joint Pain - right knee pain. Denies: Joint Tenderness Skin: Denies: Rash, Wounds Neurological: Reports: Balance problems, Focal weakness - right lower extremity weakness. Denies: Blurred vision, Double vision, Change in Speech Psychiatric: Denies: Anxiety, Depression, Homicidal Ideations, Suicidal Ideations Hematologic/ Lymphatic: Denies: Easy Bruising, Easy Bleeding VTE Information - Inpt Only VTE Present on Admission: No VTE Pharm Prophylaxis ordered?: Yes - Physical Exam Vitals/I&O's: Vital Signs Temp Pulse Resp BP Pulse Ox 97.5 F L 72 20 H 130/95 H 100 03/14/21 10:28 03/14/21 14:00 03/14/21 14:00 03/14/21 14:00 03/14/21 14:00 Oxygen Delivery Method Room Air Weight: 254 lb 10.142 oz Body Mass Index (BMI) 35.5 General: Alert, Oriented x3, Cooperative, No apparent distress HEENT: Atraumatic, PERRLA, EOMI, Normocephalic Oral: Dry Mucosa Neck: Supple, No JVD, Negative Carotid Bruits Lungs: Clear to auscultation, Normal air movement, No rhonchi, No wheeze, No rales Cardiovascular: Normal S1, Normal S2, No murmurs, Irregular Rate - afib, rate controlled Abdomen: Bowel Sounds Present, Soft, Non Tender, Non-Distended, No Hepato- splenomegaly Extremities: No clubbing, No cyanosis, No edema, Capillary Refill Less than 3 Seconds Skin: No breakdown, - - papular, erythematous rash over neck and torso as well as back, which he says is due to bedbugs. Musculoskeletal: - - right knee is swollen, tender and erythematous. Has pain with flexion and extension of right knee. superifical ulceration, like a skin tear on right knee Lymphatic: No Cervical, Supraclavicular, or Inguinal Adenopathy Neurological: Cranial nerves II-XII grossly intact, Neuro grossly intact, - - power in RLE is 4/5 due to pain in right knee Psych/Mental Status: Normal Affect, Appropriate, Alert and oriented to time, place, person, mood and affect Microbiology Past 72 Hours 03/14/21 11:15 Nasal Secretion SARS-CoV-2 Antigen (Rapid) - Final Laboratory Results 03/14/21 10:50: WBC 6.8, RBC 5.04, Hgb 13.5, Hct 42.8, MCV 84.9, MCH 26.8 L, MCHC 31.5 L, RDW Std Deviation 43.6, RDW Coeff of Roberth 14.4, Plt Count 166, Immature Gran % (Auto) 0.600, Neut % (Auto) 64.5, Lymph % (Auto) 23.3, [place] % (Auto) 7.2, Eos % (Auto) 4.0, Baso % (Auto) 0.4, Absolute Neuts (auto) 4.4, Absolute Lymphs (auto) 1.58, Nucleated RBC % 0 03/14/21 10:50: Sodium Cancelled, Potassium Cancelled, Chloride Cancelled, Carbon Dioxide Cancelled, Anion Gap Cancelled, BUN Cancelled, Creatinine Cancelled, Estim Creat Clear Calc Cancelled, Est GFR (MDRD) Af Amer Cancelled, Est GFR (MDRD) Non-Af Cancelled, BUN/Creatinine Ratio Cancelled, Glucose Cancelled, Calcium Cancelled, Troponin I Cancelled 03/14/21 12:00: Sodium Cancelled, Potassium Cancelled, Chloride Cancelled, Carbon Dioxide Cancelled, Anion Gap Cancelled, BUN Cancelled, Creatinine Cancelled, Estim Creat Clear Calc Cancelled, Est GFR (MDRD) Af Amer Cancelled, Est GFR (MDRD) Non-Af Cancelled, BUN/Creatinine Ratio Cancelled, Glucose Cancelled, Calcium Cancelled, Troponin I Cancelled 03/14/21 12:30: Sodium Cancelled, Potassium Cancelled, Chloride Cancelled, Carbon Dioxide Cancelled, Anion Gap Cancelled, BUN Cancelled, Creatinine Cancelled, Estim Creat Clear Calc Cancelled, Est GFR (MDRD) Af Amer Cancelled, Est GFR (MDRD) Non-Af Cancelled, BUN/Creatinine Ratio Cancelled, Glucose Cancelled, Calcium Cancelled, Troponin I Cancelled 03/14/21 13:03: Sodium 135 L, Potassium 3.9, Chloride 102, Carbon Dioxide 27.0, Anion Gap 6, BUN 13, Creatinine 1.02, Estim Creat Clear Calc 64.60, Est GFR (MDRD) Af Amer 91, Est GFR (MDRD) Non-Af 75, BUN/Creatinine Ratio 12.7, Glucose 277 H, Calcium 9.5, Troponin I 0.[address] 03/14/21 11:02 IMPRESSION: Chronic involutional changes of the brain. 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 Electronically Signed: Walker Valdez MD at 11:20 EDT , Service support , Assessment/Plan All Active Problems Blister of right foot (Resolved) 75 y.o admitted with a complaint of right knee pain and mechanical fall #Debility due to right knee pain * fall precautions * PT.OT consult * xray of right knee pending #Right knee pain, likely due to osteoarthritis * get xray of the right knee * PT/OT consult * PO tylenol, PO oxycodone and IV morphine prn for pain * #Hypertension: on amlodipine and lisinopril #Afib: rate controlled. On xarelto #Diabetes mellitus: on metformin. ISS. Accuchecks ACHS DVT prophyhlaxis: not indicated as he is on xarelto. Inpatient E&M: [id number] Init Hosp L3
--- NOTE | 2021-03-14 15:30 | RAD_ITS ---
STUDY: X-RAY - RIGHT KNEE REASON FOR EXAM: Male, 75 years old. pain TECHNIQUE: 4 view(s) of the knee. COMPARISON: None. FINDINGS: Normal visualized distal femur. Normal visualized proximal tibia and fibula. Normal proximal tibiofibular articulation. There is moderate degenerative arthrosis of the medial femorotibial compartment with moderate joint space narrowing. There is moderate degenerative arthrosis of the lateral femorotibial compartment with moderate joint space narrowing. There is mild degenerative arthrosis of the patellofemoral articulation. There are atherosclerotic calcifications. RAD/Knee 4 or More Views IMPRESSION: 1. No acute fracture or dislocation. 2. Moderate arthrosis. Electronically Signed: Rafael Lopes MD at 15:51 EDT Tel , Service support ,
[2021-03-14] MEDS: metFORMIN HCl 1,000 MG Tablet 1000 MG PO (16:55)
[2021-03-14 17:21] LABS: Bedside Glucose 247 mg/dL (70-110)
[2021-03-14 22:25] LABS: Bedside Glucose 276 mg/dL (70-110)
[2021-03-14] MEDS: Acetaminophen 325 MG Tablet 650 MG PO (22:26)
[2021-03-15] VITALS (12 sets, daily range): BP systolic 123–161; BP diastolic 81–96; PULSE 65–95; RESP 15–18; TEMP 36.2–36.9; O2SAT 95–99
[2021-03-15] MEDS: oxyCODONE 5 MG Tablet PO (04:18)
[2021-03-15 06:54] LABS: Absolute Lymphocyte Count 2.16 X10^3/uL (0.83-4.51); Absolute Neutrophil Count 3.5 X10^3/uL (2.0-7.7); Basophil# 0.02 X10^3/uL; Basophil% 0.3 % (0-1); Eosinophils% 6.2 % (0-5); Hematocrit 41.9 % (40-54); Hemoglobin 13.1 g/dL (13.0-16.5); Lymphocyte # 2.16 X10^3/ul (0.83-4.51); Lymphocyte % 33.6 % (19-41); Mean Corp Hgb Conc 31.3 g/dL (32-36); Mean Corpuscular Hgb 26.4 pg (27.0-32.0); Mean Corpuscular Volume 84.3 fL (80-94); Mean Platelet Vol. 12.5 fl (6.2-12.0); Monocyte# 0.37 X10^3/uL; Monocyte% 5.8 % (0-10); NRBC Flagged by Analyzer 0 % (0-5); Neutrophil # 3.45 X10^3/uL (2.7-7.7); Neutrophil % 53.6 % (47-70); Platelet Count 178 K/mm3 (150-450); RBC Distribution Width CV 14.1 % (11.6-14.6); RBC Distribution Width SD 43.7 fl (35.1-43.9); Red Blood Count 4.97 M/mm3 (4.6-6.2); White Blood Count 6.4 K/mm3 (4.4-11.0)
[2021-03-15 07:20] LABS: Bedside Glucose 282 mg/dL (70-110)
[2021-03-15 07:25] LABS: Anion Gap 6 (5-15); BUN 13 mg/dL (7-18); BUN/Creat Ratio 12.9 RATIO (10-20); Calcium,Total 8.6 mg/dL (8.5-10.1); Chloride 103 mmol/L (98-107); Creatinine, Serum 1.01 mg/dL (0.70-1.30); EST Glomerular Filtration Rate 76 mL/min (>60); Est Glom Filt Rate - Afr Amer 92 mL/min (>60); Estimated Creatinine Clearance 63.24 ml/min; Glucose 290 mg/dL (74-106); Potassium 3.9 mmol/L (3.5-5.1); Sodium Level 136 mmol/L (136-145)
[2021-03-15] MEDS: metFORMIN HCl 1,000 MG Tablet 1000 MG PO ×2 (08:05→17:14)
[2021-03-15] MEDS: Potassium Chloride Oral Tablet 20 MEQ PO (08:05)
[2021-03-15] MEDS: Furosemide 40 MG Tablet PO (09:50)
[2021-03-15] MEDS: 0.9% Saline Lock 10 ML Syringe IV (09:50)
[2021-03-15] MEDS: Ezetimibe 10 MG Tablet PO (09:50)
[2021-03-15] MEDS: amLODIPine 10 MG Tablet PO (09:50)
[2021-03-15] MEDS: Lisinopril 40 MG Tablet PO (09:50)
[2021-03-15 11:41] LABS: Bedside Glucose 368 mg/dL (70-110)
[2021-03-15] MEDS: Glimepiride 4 MG Tablet PO (13:35)
--- NOTE | 2021-03-15 14:35 | CASEMGMT ---
SOCIAL WORK Referral Source: [facility] Reason for Consult: SNF Met with patient in room. Introduced role and reason for referral. Patient states prior to admission was living home alone. Patient states, I won't be going back there. There's bed bugs. Patient reports need for SNF and requests referral to [facility]. Patient states brother lives across the street from facility and will be talking with him about SNF placement. Informed SW will follow up on Wednesday to confirm facility and make referral. Patient verbalized understanding. Plan: SNF- SW to follow up on Wednesday DRossana Sofia, CAMPAIGN MARKETING MANAGER, ROD BUSTER HELPER
--- NOTE | 2021-03-15 15:19 | PCM.PROGNOTE ---
Subjective: Patient was seen and examined today, he was admitted yesterday for weakness in his right leg and inability to bear weight on his right knee, his living conditions were poor at home and it was felt that he could not return to his home. Patient tells this examiner today he knows he cannot return to his home, I explained to him that no arrangements were going to be made for him to go to an extended care facility until Wednesday at the earliest. - Physical Exam Vitals/I&O's: Vital Signs Temp Pulse Resp BP Pulse Ox 98.5 F 83 16 161/94 H 99 03/15/21 09:50 03/15/21 09:50 03/15/21 09:50 03/15/21 09:50 03/15/21 09:50 Oxygen Delivery Method Room Air Weight: 111.8 kg Body Mass Index (BMI) 34.4 Intake and Output for Last 24 Hours 03/13/21 03/14/21 03/15/21 23:59 23:59 23:59 Intake Total 340 / 340 Output Total 550 / 875 650 / 650 Balance -550 / -775 -310 / -310 General: Alert, Oriented x3, Cooperative, No apparent distress, Well developed, Well nourished HEENT: Atraumatic, PERRLA, EOMI, Normocephalic Oral: Moist Mucosa Neck: Supple, No JVD, Trachea Midline, Thyroid Normal Size and Texture Lungs: Clear to auscultation, Normal air movement, No rhonchi, No wheeze, No rales Cardiovascular: Regular rate, Regular Rhythm, Normal S1, Normal S2, No murmurs, PMI Normal, No rub noted, No Gallop Abdomen: Bowel Sounds Present, Soft, Non Tender, Non-Distended Extremities: No clubbing, No cyanosis, No edema, Capillary Refill Less than 3 Seconds Skin: No rashes, No breakdown Musculoskeletal: No Tenderness to Palpation of Joints or Extremities Neurological: Cranial nerves II-XII grossly intact, Neuro grossly intact, Sensory exam intact to light touch and pain Psych/Mental Status: Normal Affect, Appropriate, Alert and oriented to time, place, person, mood and affect Microbiology Past 72 Hours 03/14/21 11:15 Nasal Secretion SARS-CoV-2 Antigen (Rapid) - Final Laboratory Results 03/14/21 16:59: POC Glucose 247 H 03/14/21 22:19: POC Glucose 276 H 03/15/21 06:40: Sodium 136, Potassium 3.9, Chloride 103, Carbon Dioxide 27.0, Anion Gap 6, BUN 13, Creatinine 1.01, Estim Creat Clear Calc 63.24, Est GFR (MDRD) Af Amer 92, Est GFR (MDRD) Non-Af 76, BUN/Creatinine Ratio 12.9, Glucose 290 H, Calcium 8.6 03/15/21 06:40: WBC 6.4, RBC 4.97, Hgb 13.1, Hct 41.9, MCV 84.3, MCH 26.4 L, MCHC 31.3 L, RDW Std Deviation 43.7, RDW Coeff of Roberth 14.1, Plt Count 178, MPV 12.5 H, Immature Gran % (Auto) 0.500, Neut % (Auto) 53.6, Lymph % (Auto) 33.6, [place] % (Auto) 5.8, Eos % (Auto) 6.2 H, Baso % (Auto) 0.3, Absolute Neuts (auto) 3.5, Absolute Lymphs (auto) 2.16, Nucleated RBC % 0 03/15/21 07:15: POC Glucose 282 H 03/15/21 11:24: POC Glucose 368 H Current Medications Acetaminophen (Acetaminophen 325 Mg Tablet) 650 mg PO Q6H PRN PRN PRN Reason: Pain Score 1-10/Temp > 100.7 F Last Admin: 03/14/21 22:26 Dose: 650 mg Documented by: Amlodipine Besylate (Amlodipine 10 Mg Tablet) 10 mg PO DAILY [facility] Last Admin: 03/15/21 09:50 Dose: 10 mg Documented by: Ezetimibe (Ezetimibe 10 Mg Tablet) 10 mg PO DAILY [facility] Last Admin: 03/15/21 09:50 Dose: 10 mg Documented by: Ergocalciferol (Ergocalciferol 50,000 Unit Capsule) 50,000 unit PO MARTINEZ [facility] Furosemide (Furosemide 40 Mg Tablet) 40 mg PO DAILY [facility] Last Admin: 03/15/21 09:50 Dose: 40 mg Documented by: Glimepiride (Glimepiride 4 Mg Tablet) 4 mg PO DAILY@0800 [facility] Insulin Human Lispro (Insulin Lispro 100 Unit/Ml Insuln.Pen) 0 unit SC [facility]; Protocol Lisinopril (Lisinopril 40 Mg Tablet) 40 mg PO DAILY [facility] Last Admin: 03/15/21 09:50 Dose: 40 mg Documented by: Metformin HCl (Met[facility] Hcl [facility],000 Mg Tablet) [facility] Last Admin: 03/15/21 08:05 Dose: 1,000 mg Documented by: Morphine Sulfate (Morphine 2 Mg/Ml Syringe) 2 mg IV Q3H PRN PRN PRN Reason: Pain Score 6-10 Ondansetron HCl (Ondansetron 4 Mg/2 Ml Vial) 4 mg IV Q8H PRN PRN PRN Reason: NAUSEA/VOMITING Oxycodone HCl (Oxycodone 5 Mg Tablet) 5 mg PO Q4H PRN PRN PRN Reason: Pain Score 4-5 Last Admin: 03/15/21 04:18 Dose: 5 mg Documented by: Potassium Chloride (Potassium Chloride Oral Tablet 20 Meq) [facility] Last Admin: 03/15/21 08:05 Dose: 20 meq Documented by: Rivaroxaban (Rivaroxaban 20 Mg Tablet) 20 mg PO DAILY@1700 [facility] Sodium Chloride (0.9% Saline Lock 10 Ml Syringe) 10 - 40 ml IV UD PRN PRN Reason: SALINE FLUSH Last Admin: 03/15/21 09:50 Dose: 10 ml Documented by: Medical Necessity - Tobacco Use Smoking Status: Never smoker Assessment/Plan All Active Problems Blister of right foot (Resolved) #1 generalized debility-PT and OT will be seeing the patient, patient had an x-ray of his right knee performed which showed moderate arthrosis. I suspect the patient will have to go to a senior living facility for at least temporary rehab services, this will have to be initiated on Wednesday. #2 right knee pain secondary to osteoarthritis #3 type 2 diabetes-blood sugars will be monitored, I have added Amaryl to the patient's medications for his blood sugar control. 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 fib-patient is on Xarelto OBSV E&M: [id number] Subsequent observation care L3
[2021-03-15] MEDS: Rivaroxaban 20 MG Tablet PO (17:14)
[2021-03-15] MEDS: Insulin Lispro 100 UNIT/ML INSULN.PEN SC ×2 (17:14→22:34)
[2021-03-15 17:20] LABS: Bedside Glucose 329 mg/dL (70-110)
[2021-03-15] MEDS: Acetaminophen 325 MG Tablet 650 MG PO (22:39)
[2021-03-15 22:40] LABS: Bedside Glucose 286 mg/dL (70-110)
[2021-03-16] VITALS (12 sets, daily range): BP systolic 112–148; BP diastolic 72–100; PULSE 67–91; RESP 15–18; TEMP 36.2–36.6; O2SAT 97–98
[2021-03-16] MEDS: oxyCODONE 5 MG Tablet PO (03:08)
[2021-03-16] MEDS: Insulin Lispro 100 UNIT/ML INSULN.PEN SC ×4 (06:51→22:13)
[2021-03-16 07:00] LABS: Bedside Glucose 220 mg/dL (70-110)
[2021-03-16] MEDS: Glimepiride 4 MG Tablet PO (08:20)
[2021-03-16] MEDS: metFORMIN HCl 1,000 MG Tablet 1000 MG PO ×2 (08:20→17:27)
[2021-03-16] MEDS: Potassium Chloride Oral Tablet 20 MEQ PO (08:20)
[2021-03-16] MEDS: Furosemide 40 MG Tablet PO (08:21)
[2021-03-16] MEDS: amLODIPine 10 MG Tablet PO (08:21)
[2021-03-16] MEDS: Ezetimibe 10 MG Tablet PO (08:21)
[2021-03-16] MEDS: Lisinopril 40 MG Tablet PO (08:21)
[2021-03-16 11:50] LABS: Bedside Glucose 318 mg/dL (70-110)
[2021-03-16] MEDS: Rivaroxaban 20 MG Tablet PO (17:27)
[2021-03-16 17:31] LABS: Bedside Glucose 234 mg/dL (70-110)
--- NOTE | 2021-03-16 17:36 | PCM.PROGNOTE ---
Subjective: Patient was seen and examined today, he has been walking in the koch with minimal assistance. Patient told me that he would like to go to [facility] if possible for short-term inpatient shelter services. - Physical Exam Vitals/I&O's: Vital Signs Temp Pulse Resp BP Pulse Ox 97.9 F 79 16 112/72 97 03/16/21 11:00 03/16/21 11:00 03/16/21 11:00 03/16/21 11:00 03/16/21 11:00 Oxygen Delivery Method Room Air Weight: 111.8 kg Body Mass Index (BMI) 34.4 Intake and Output for Last 24 Hours 03/14/21 03/15/21 03/16/21 23:59 23:59 23:59 Intake Total 580 / 780 300 / 300 Output Total 550 / 875 1250 / 1410 460 / 460 Balance -550 / -775 -670 / -630 -160 / -160 General: Alert, Oriented x3, Cooperative, No apparent distress, Well developed, Well nourished HEENT: Atraumatic, PERRLA, EOMI, Normocephalic Oral: Moist Mucosa Neck: Supple, No JVD, Negative Carotid Bruits, Trachea Midline, Thyroid Normal Size and Texture Lungs: Clear to auscultation, Normal air movement, No rhonchi, No wheeze, No rales Cardiovascular: No murmurs, PMI Normal, Irregular Rate, No rub noted Abdomen: Bowel Sounds Present, Soft, Non Tender, Non-Distended Extremities: No clubbing, No cyanosis, No edema, Capillary Refill Less than 3 Seconds Skin: No rashes, No breakdown Musculoskeletal: No Tenderness to Palpation of Joints or Extremities Neurological: Cranial nerves II-XII grossly intact, Sensory exam intact to light touch and pain Psych/Mental Status: Normal Affect, Appropriate, Alert and oriented to time, place, person, mood and affect Microbiology Past 72 Hours 03/14/21 11:15 Nasal Secretion SARS-CoV-2 Antigen (Rapid) - Final Laboratory Results 03/15/21 22:32: POC Glucose 286 H 03/16/21 06:50: POC Glucose 220 H 03/16/21 11:40: POC Glucose 318 H 03/16/21 17:23: POC Glucose 234 H Current Medications Acetaminophen (Acetaminophen 325 Mg Tablet) 650 mg PO Q6H PRN PRN PRN Reason: Pain Score 1-10/Temp > 100.7 F Last Admin: 03/15/21 22:39 Dose: 650 mg Documented by: Amlodipine Besylate (Amlodipine 10 Mg Tablet) 10 mg PO DAILY [facility] Last Admin: 03/16/21 08:21 Dose: 10 mg Documented by: Ezetimibe (Ezetimibe 10 Mg Tablet) 10 mg PO DAILY [facility] Last Admin: 03/16/21 08:21 Dose: 10 mg Documented by: Ergocalciferol (Ergocalciferol 50,000 Unit Capsule) 50,000 unit PO MARTINEZ [facility] Last Admin: 03/16/21 08:20 Dose: 50,000 unit Documented by: Furosemide (Furosemide 40 Mg Tablet) 40 mg PO DAILY [facility] Last Admin: 03/16/21 08:21 Dose: 40 mg Documented by: Glimepiride (Glimepiride 4 Mg Tablet) 4 mg PO DAILY@0800 [facility] Last Admin: 03/16/21 08:20 Dose: 4 mg Documented by: Insulin Human Lispro (Insulin Lispro 100 Unit/Ml Insuln.Pen) 0 unit SC [facility]; Protocol Last Admin: 03/16/21 17:27 Dose: 4 u Documented by: Lisinopril (Lisinopril 40 Mg Tablet) 40 mg PO DAILY [facility] Last Admin: 03/16/21 08:21 Dose: 40 mg Documented by: Metformin HCl (Metformin Hcl 1,000 Mg Tablet) [facility] Last Admin: 03/16/21 17:27 Dose: 1,000 mg Documented by: Morphine Sulfate (Morphine 2 Mg/Ml Syringe) 2 mg IV Q3H PRN PRN PRN Reason: Pain Score 6-10 Ondansetron HCl (Ondansetron 4 Mg/2 Ml Vial) 4 mg IV Q8H PRN PRN PRN Reason: NAUSEA/VOMITING Last Admin: 03/16/21 17:34 Dose: 4 mg Documented by: Oxycodone HCl (Oxycodone 5 Mg Tablet) 5 mg PO Q4H PRN PRN PRN Reason: Pain Score 4-5 Last Admin: 03/16/21 03:08 Dose: 5 mg Documented by: Potassium Chloride (Potassium Chloride Oral Tablet 20 Meq) [facility] Last Admin: 03/16/21 08:20 Dose: 20 meq Documented by: Rivaroxaban (Rivaroxaban 20 Mg Tablet) 20 mg PO DAILY@1700 [facility] Last Admin: 03/16/21 17:27 Dose: 20 mg Documented by: Sodium Chloride (0.9% Saline Lock 10 Ml Syringe) 10 - 40 ml IV UD PRN PRN Reason: SALINE FLUSH Last Admin: 03/15/21 09:50 Dose: 10 ml Documented by: Medical Necessity - Tobacco Use Smoking Status: Never smoker Assessment/Plan All Active Problems Blister of right foot (Resolved) #1 generalized debility-PT and OT will be seeing the patient, again patient requests short-term admission to a shelter facility #2 right knee pain secondary to osteoarthritis #3 type 2 diabetes-blood sugars will be monitored, patient is on Metformin and Amaryl, sliding scale insulin is being used #4 essential hypertension #5 cerebrovascular disease-patient's CT of his brain showed an 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 fib-patient is on Xarelto Inpatient E&M: 82740 Subs Hosp L2
[2021-03-16 22:31] LABS: Bedside Glucose 307 mg/dL (70-110)
[2021-03-17] VITALS (7 sets, daily range): BP systolic 123–148; BP diastolic 87–101; PULSE 66–84; RESP 16–18; TEMP 36.2–36.8; O2SAT 96–99
[2021-03-17] MEDS: MELATONIN 3 MG TABLET PO (00:10)
[2021-03-17] MEDS: 0.9% Saline Lock 10 ML Syringe IV (05:22)
[2021-03-17] MEDS: Ondansetron 4 MG/2 ML Vial IV (05:22)
[2021-03-17] MEDS: Insulin Lispro 100 UNIT/ML INSULN.PEN SC ×3 (06:31→16:56)
[2021-03-17 06:50] LABS: Bedside Glucose 235 mg/dL (70-110)
[2021-03-17] MEDS: Acetaminophen 325 MG Tablet 650 MG PO (08:23)
[2021-03-17] MEDS: Potassium Chloride Oral Tablet 20 MEQ PO (08:24)
[2021-03-17] MEDS: Ezetimibe 10 MG Tablet PO (08:24)
[2021-03-17] MEDS: metFORMIN HCl 1,000 MG Tablet 1000 MG PO ×2 (08:24→17:00)
[2021-03-17] MEDS: amLODIPine 10 MG Tablet PO (08:24)
[2021-03-17] MEDS: Furosemide 40 MG Tablet PO (08:24)
[2021-03-17] MEDS: Glimepiride 4 MG Tablet PO (08:24)
[2021-03-17] MEDS: Lisinopril 40 MG Tablet PO (08:24)
--- NOTE | 2021-03-17 09:27 | CASEMGMT ---
FREDDY met with patient introduced self. FREDDY Pearce was also with FREDDY and was introduced to patient as well. FREDDY spoke with patient about his discharge plan. He said he needs to go to a intermediate. He wants to go to [place] as his brother lives nearby. FREDDY asked patient what he needs help with that he feels he needs a intermediate. He said he is not sure. He said he has bugs in his house so he had to leave anyway. They are in the process of fumigating his home. FREDDY told him FREDDY will send a referral to [place], but if they cannot accept him he will have to consider other places. FREDDY did ask patient if he has had his COVID Vaccines and he was due for his second one today. FREDDY told him because he has not had his second vaccine he will have to quarantine for 14 days at the intermediate which means no visitors. After that quarantine he can have scheduled visits. FREDDY faxed referral and also called leaving a voice mail. Await response. Deloris Dwyer ENGINEER TECHNICAL STAFF BELIA
--- NOTE | 2021-03-17 10:54 | NURSING ---
PT SENDING HOME MEDS AND CHECK BOOK HOME WITH VISITORS.
--- NOTE | 2021-03-17 11:56 | CASEMGMT ---
Pt screened with [facility] Palliative Care Screening Tool due to Str[employer] 3, pt met criteria. Notified Deloris HAYES as pt dc'ing to SNF.
--- NOTE | 2021-03-17 11:59 | CASEMGMT ---
FREDDY received a voice mail from Carolina at [facility] and she asked about patient's diagnosis of Schizophrenia and no medications. SW spoke with patient about this diagnosis and he does not know where the doctor got this information. Patient appeared to become upset regarding this diagnosis and how it got there. SW called patient's brother to ask about it and he did not know anything about a diagnosis of Schizophrenia. FREDDY let him know SW is working on getting patient to [facility] as long as they will accept him. FREDDY called Carolina at [facility] and let her know above. FREDDY also let her know that patient has not had any behavioral issues this stay. Await response. Deloris Dwyer FAST FOOD CREW LEAD BELIA
[2021-03-17 12:20] LABS: Bedside Glucose 340 mg/dL (70-110)
--- NOTE | 2021-03-17 14:55 | CASEMGMT ---
SW spoke with Carolina at [facility] about another patient. They still have not decided on patient yet. Deloris Dwyer SYSTEM DESIGNER BELIA
--- NOTE | 2021-03-17 15:35 | CASEMGMT ---
FREDDY received a call from Carolina at [facility] and they can accept patient. FREDDY notified physician, patient, and his brother, Susan. FREDDY told Susan he will be going today. FREDDY left a green sheet on patient's chart with instructions on discharge to [facility]. FREDDY did notify patient and his brother that because he has not had his 2nd COVID vaccine he will have to quarantine for 14 days and that means no visitors. Susan said he spoke with [facility] and they can give patient his 2nd vaccine. Plan: d/c to [facility] under skilled level of care on a convalescent stay. [facility] transported patient via wheelchair van. Deloris Dwyer MIX HOUSE OPERATOR BELIA
--- NOTE | 2021-03-17 15:56 | PCM.TXEXTCAR ---
- Diet 03/14/21 16:11 Diet: Consistent Carb - Calorie Controlled Food consistency:: Regular Liquid Consistency:: Regular/Thin How many daily calories?: 2200 calorie - Wound(s) GENERAL BODY Wound Type: Bite - Therapies Physical Therapy: Eval and Treat Occupational Therapy: Eval and Treat - Allergies/Procedures Done in Hospital Allergies/Adverse Reactions: Allergies No Known Allergies Allergy (Verified 03/14/21 10:28) Procedures: None - Type of Care/Length of Stay Estimated LOS: Convalescent Care Less Than 30 days Type of Care Needed: Skilled Rehab Potential: Good Prognosis: Good - Additional Orders/Day of Discharge Day of Discharge: 03/17/21 - Dietary and Speech Recommendations Dietitian Recommendations/Changes: Will provide 2200 cho consistent diet. - Follow Up Care Primary Care Physician: Gregorio Gutiérrez MD [Primary Care Provider] - Please follow up with your Primary Care Physician in: 3-5 days
--- NOTE | 2021-03-17 16:08 | PCM.DC.SUM ---
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 Electronically Signed: Walker Valdez MD at 11:20 EDT , Service support , Knee X-Ray 03/14/21 15:30 IMPRESSION: 1. No acute fracture or dislocation. 2. Moderate arthrosis. Electronically Signed: Rafael Lopes MD at 15:51 EDT Tel , Service support , Operations: None Procedures: None Summary of Care Provided: Per HPI: The patient is a 75 year old M with a PMh as outlined who was admitted with a complaint of mechanical fall. He complains of pain and swelling in his right knee, and says due to the pain, he has not been able to weight bear on his right knee. Every time he tries to get up and ambulate, he gets pain and has fallen a few times due to the pain and weakness in his right leg and knee. He lives alone and EMS was worried about his home situation; patient also says he has bedbugs. Vitals in the ED showed temperature of 97.5 with blood pressure 138/92, pulse rate of 85 respiratory rate of 19. Was saturating 100% on room air. Chemistry was unremarkable and CBC was also unremarkable. 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 There was concern for stroke when he came in because of the right lower extremity weakness but with his history now being of right knee pain and swelling, it does seem that this is less likely due to pain and more due to debility due to right knee pain likely osteoarthritis. Hospital Course: 1. Generalized debility secondary to right knee pain from [id number] male presented to the hospital with increasing weakness and debility secondary to chronic right knee pain. X-ray of his knee did not demonstrate an acute fracture and did show moderate arthrosis. He stated that he did not feel safe to go home given the fact that his knee was giving out on him and he also had bedbugs that need to be treated. He was accepted at [facility], I discussed with him the plan for discharge today he expressed understanding of the risk benefits of going to the halfway facility for rehab and would like to go today. 2. Type 2 diabetes-he was continued on his Metformin thousand twice daily and also started on glimepiride. He was still having high blood sugars therefore he was discharged on his glimepiride, would recommend possibly initiating a sliding scale insulin at the halfway facility and making adjustments to his oral medications as necessary. He is only received 2 doses of glimepiride therefore I will take a little bit of time to see whether or not this helps. 3. Hypertension, history of CVA, chronic atrial fibrillation are all chronic medical conditions which complicate his care. His home medications were continued where appropriate - Physical Exam Vitals/I&O's: Vital Signs Temp Pulse Resp BP Pulse Ox 97.2 F L 84 16 140/88 H 99 03/17/21 14:00 03/17/21 14:00 03/17/21 14:00 03/17/21 14:00 03/17/21 14:00 Oxygen Delivery Method Room Air Weight: 246 lb 7.629 oz Body Mass Index (BMI) 34.4 Intake and Output for Last 24 Hours 03/15/21 03/16/21 03/17/21 23:59 23:59 23:59 Intake Total 580 / 780 300 / 500 500 / 500 Output Total 1250 / 1410 460 / 860 850 / 850 Balance -670 / -630 -160 / -360 -350 / -350 General: Alert, Oriented x3, Cooperative, No apparent distress HEENT: Atraumatic, PERRLA, EOMI, Normocephalic Oral: Moist Mucosa Neck: Supple, No JVD Lungs: Clear to auscultation, Normal air movement, No rhonchi, No wheeze, No rales Cardiovascular: Regular rate, Regular Rhythm, Normal S1, Normal S2, No murmurs Abdomen: Soft, Non Tender, Non-Distended, No Hepato-splenomegaly Extremities: No edema, Capillary Refill Less than 3 Seconds Skin: No rashes, No breakdown Neurological: Neuro grossly intact, Sensory exam intact to light touch and pain Psych/Mental Status: Normal Affect, Appropriate Microbiology Past 72 Hours 03/17/21 14:30 Mucosa - Nose SARS-CoV-2 Antigen (Rapid) - Final Laboratory Results 03/16/21 17:23: POC Glucose 234 H 03/16/21 22:12: POC Glucose 307 H 03/17/21 06:29: POC Glucose 235 H 03/17/21 11:19: POC Glucose 340 H Current Medications Acetaminophen (Acetaminophen 325 Mg Tablet) 650 mg PO Q6H PRN PRN PRN Reason: Pain Score 1-10/Temp > 100.7 F Last Admin: 03/17/21 08:23 Dose: 650 mg Documented by: Amlodipine Besylate (Amlodipine 10 Mg Tablet) 10 mg PO DAILY [facility] Last Admin: 03/17/21 08:24 Dose: 10 mg Documented by: Ezetimibe (Ezetimibe 10 Mg Tablet) 10 mg PO DAILY [facility] Last Admin: 03/17/21 08:24 Dose: 10 mg Documented by: Ergocalciferol (Ergocalciferol 50,000 Unit Capsule) 50,000 unit PO MARTINEZ [facility] Last Admin: 03/16/21 08:20 Dose: 50,000 unit Documented by: Furosemide (Furosemide 40 Mg Tablet) 40 mg PO DAILY [facility] Last Admin: 03/17/21 08:24 Dose: 40 mg Documented by: Glimepiride (Glimepiride 4 Mg Tablet) 4 mg PO DAILY@0800 [facility] Last Admin: 03/17/21 08:24 Dose: 4 mg Documented by: Insulin Human Lispro (Insulin Lispro 100 Unit/Ml Insuln.Pen) 0 unit SC [facility]; Protocol Last Admin: 03/17/21 11:20 Dose: 8 u Documented by: Lisinopril (Lisinopril 40 Mg Tablet) 40 mg PO DAILY [facility] Last Admin: 03/17/21 08:24 Dose: 40 mg Documented by: Melatonin (Melatonin 3 Mg Tablet) 3 mg PO QHS [facility] Last Admin: 03/17/21 00:10 Dose: 3 mg Documented by: Metformin HCl (Metformin Hcl 1,000 Mg Tablet) [facility] Last Admin: 03/17/21 08:24 Dose: 1,000 mg Documented by: Morphine Sulfate (Morphine 2 Mg/Ml Syringe) 2 mg IV Q3H PRN PRN PRN Reason: Pain Score 6-10 Ondansetron HCl (Ondansetron 4 Mg/2 Ml Vial) 4 mg IV Q8H PRN PRN PRN Reason: NAUSEA/VOMITING Last Admin: 03/17/21 05:22 Dose: 4 mg Documented by: Oxycodone HCl (Oxycodone 5 Mg Tablet) 5 mg PO Q4H PRN PRN PRN Reason: Pain Score 4-5 Last Admin: 03/16/21 03:08 Dose: 5 mg Documented by: Potassium Chloride (Potassium Chloride Oral Tablet 20 Meq) [facility] Last Admin: 03/17/21 08:24 Dose: 20 meq Documented by: Rivaroxaban (Rivaroxaban 20 Mg Tablet) 20 mg PO DAILY@1700 [facility] Last Admin: 03/16/21 17:27 Dose: 20 mg Documented by: Sodium Chloride (0.9% Saline Lock 10 Ml Syringe) 10 - 40 ml IV UD PRN PRN Reason: SALINE FLUSH Last Admin: 03/17/21 05:22 Dose: 10 ml Documented by: Home Medications: Medications to take at Discharge Amlodipine [Norvasc] 10 mg PO DAILY 02/02/16 Ergocalciferol [Vitamin D] 50,000 unit PO MARTINEZ 02/02/16 Furosemide [Lasix] 40 mg PO DAILY 02/02/16 Potassium Chloride Oral Tablet [K-Dur] 20 meq PO DAILY 02/02/16 Ezetimibe [Zetia] 10 mg PO DAILY 09/10/20 Metformin HCl 1,000 mg PO BID 09/10/20 Lisinopril [Zestril] 40 mg PO DAILY 03/14/21 Rivaroxaban [Xarelto] 20 mg PO DAILY 03/14/21 Glimepiride [Amaryl] 4 mg PO DAILY@0800 tablet 03/17/21 Primary Care Physician: Gregorio Gutiérrez MD [Primary Care Provider] - Please follow up with your Primary Care Physician in: 3-5 days Disposition: Custodial facility Minutes spent on discharge:: 35 Patient Condition:: Stable Medical Necessity - Tobacco Use Smoking Status: Never smoker Meaningful Use Info Meaningful Use Diagnoses (Choose all that apply): None applicable Inpatient E&M: 21904 Disch Hosp
--- NOTE | 2021-03-17 16:31 | PHA.DC.MR ---
Pharmacy Service has performed discharge medication reconciliation for this patient. The patient's discharge medication list was reviewed for discrepancies and discrepancies were resolved. Home Medications Amlodipine [Norvasc] 10 mg PO DAILY 02/02/16 Ergocalciferol [Vitamin D] 50,000 unit PO MARTINEZ 02/02/16 Furosemide [Lasix] 40 mg PO DAILY 02/02/16 Potassium Chloride Oral Tablet [K-Dur] 20 meq PO DAILY 02/02/16 Ezetimibe [Zetia] 10 mg PO DAILY 09/10/20 Metformin HCl 1,000 mg PO BID 09/10/20 Lisinopril [Zestril] 40 mg PO DAILY 03/14/21 Rivaroxaban [Xarelto] 20 mg PO DAILY 03/14/21 Glimepiride [Amaryl] 4 mg PO DAILY@0800 tablet 03/17/21
[2021-03-17] MEDS: Rivaroxaban 20 MG Tablet PO (17:01)
[2021-03-17 17:21] LABS: Bedside Glucose 227 mg/dL (70-110)
== END 2021-03-17 17:14 | disposition skilled nursing facility (03) | DRG 554 ==
LOC: ED 12:04 → PCU 03-15 07:03
PROVIDERS: Internal Medicine; Admitting Provider Student in an Organized Health Care Education/Training Program; Emergency Provider Emergency Medicine; PCP Internal Medicine; Visit Provider Family Medicine
DX: M17.11 Unilateral primary osteoarthritis, right knee (principal); I48.20 Chronic atrial fibrillation, unspecified; I10 Essential (primary) hypertension; E11.9 Type 2 diabetes mellitus without complications; Z86.73 Personal history of transient ischemic attack (TIA), and cerebral infarction without residual deficits; Z79.01 Long term (current) use of anticoagulants; G93.89 Other specified disorders of brain; W18.30XA Fall on same level, unspecified, initial encounter; F32.9 Major depressive disorder, single episode, unspecified; E78.5 Hyperlipidemia, unspecified; I67.9 Cerebrovascular disease, unspecified; Z79.84 Long term (current) use of oral hypoglycemic drugs; R29.6 Repeated falls; Z82.3 Family history of stroke; Z82.49 Family history of ischemic heart disease and other diseases of the circulatory system; Z86.711 Personal history of pulmonary embolism; Z83.3 Family history of diabetes mellitus; Z86.718 Personal history of other venous thrombosis and embolism
CPT/HCPCS: 36415; 70450; 71045; 73564; 80048; 82962; 84484; 85025; 87426; 93005; 97110; 97162; 97166; 97530; 97535; 97802; 99285; A4216; J2405

== ENCOUNTER → 2021-05-22 05:00 | Outpatient (REF) | payer MEDICARE, OTHER, SELFPAY ==
[2021-03-14 16:13] VITALS: BMI 34.4
[2021-05-22 09:46] LABS: HIV - WCH Non-Reactive (Nonreactive)
[2021-05-23 05:07] LABS: HEPATITIS B SURFACE AG 6510 Negative (Negative); Hepatitis C Ab <0.1 s/co ratio (0.0-0.9)
[2021-05-23 07:30] LABS: Hep B Surface Antibodies Non Reactive (.); Hepatitis B Core Ab Total Negative (Negative)
== END ==
PROVIDERS: PCP Internal Medicine
DX: Z11.4 Encounter for screening for human immunodeficiency virus [HIV] (principal); Z13.89 Encounter for screening for other disorder; W46.0XXA Contact with hypodermic needle, initial encounter; Z20.828 Contact with and (suspected) exposure to other viral communicable diseases
CPT/HCPCS: 36415; 86703; 86704; 86706; 86803; 87340

== ENCOUNTER → 2021-05-29 19:48 | Outpatient (REF) | payer MEDICARE, OTHER, SELFPAY ==
[2021-03-14 16:13] VITALS: BMI 34.4
[2021-05-29 21:16] LABS: Hematocrit 45.3 % (40-54); Hemoglobin 14.4 g/dL (13.0-16.5); Mean Corp Hgb Conc 31.8 g/dL (32-36); Mean Corpuscular Hgb 26.7 pg (27.0-32.0); Mean Platelet Vol. 12.8 fl (6.2-12.0); POSITIVE MORPHOLOGY YES; Platelet Count 182 K/mm3 (150-450); RBC Distribution Width CV 14.6 % (11.6-14.6); RBC Distribution Width SD 44.2 fl (35.1-43.9); Red Blood Count 5.39 M/mm3 (4.6-6.2)
[2021-05-29 21:32] LABS: ALB/GLOB Ratio 0.8 RATIO (0.9-2.4); AST(SGOT) 19 U/L (15-37); Alanine Aminotransfer ALT/SGPT 27 U/L (16-61); Albumin, Serum 3.1 g/dL (3.2-5.0); Alkaline Phosphatase 226 U/L (45-117); Anion Gap 8 (5-15); BUN 19 mg/dL (7-18); BUN/Creat Ratio 16.2 RATIO (10-20); Chloride 101 mmol/L (98-107); Creatinine, Serum 1.17 mg/dL (0.70-1.30); EST Glomerular Filtration Rate 64 mL/min (>60); Est Glom Filt Rate - Afr Amer 78 mL/min (>60); Globulin 4.1 g/dL (2.2-4.2); Glucose 421 mg/dL (74-106); Potassium 4.2 mmol/L (3.5-5.1); Protein, Total 7.2 g/dL (6.4-8.2); Sodium Level 133 mmol/L (136-145)
[2021-05-29 22:05] LABS: Scan Indicated on CBC? Y/N YES- FLAGS NOTED
== END ==
PROVIDERS: PCP Internal Medicine; Visit Provider Family Medicine
DX: E11.9 Type 2 diabetes mellitus without complications (principal); I10 Essential (primary) hypertension
CPT/HCPCS: 36415; 80053; 85027

== ENCOUNTER → 2021-06-23 04:00 | Outpatient (REF) | payer MEDICARE, OTHER, SELFPAY ==
[2021-03-14 16:13] VITALS: BMI 34.4
[2021-06-23 07:58] LABS: Hematocrit 43.7 % (40-54); Hemoglobin 13.6 g/dL (13.0-16.5); Mean Corp Hgb Conc 31.1 g/dL (32-36); Mean Corpuscular Hgb 26.5 pg (27.0-32.0); Mean Platelet Vol. 12.6 fl (6.2-12.0); Platelet Count 192 K/mm3 (150-450); RBC Distribution Width CV 15.1 % (11.6-14.6); RBC Distribution Width SD 46.7 fl (35.1-43.9); Red Blood Count 5.14 M/mm3 (4.6-6.2); White Blood Count 6.2 K/mm3 (4.4-11.0)
[2021-06-23 08:26] LABS: ALB/GLOB Ratio 0.7 RATIO (0.9-2.4); AST(SGOT) 17 U/L (15-37); Alanine Aminotransfer ALT/SGPT 32 U/L (16-61); Albumin, Serum 2.7 g/dL (3.2-5.0); Alkaline Phosphatase 129 U/L (45-117); Anion Gap 8 (5-15); BUN 13 mg/dL (7-18); BUN/Creat Ratio 18.1 RATIO (10-20); Calcium,Total 8.3 mg/dL (8.5-10.1); Chloride 104 mmol/L (98-107); Cholesterol 198 mg/dL (200); Creatinine, Serum 0.72 mg/dL (0.70-1.30); EST Glomerular Filtration Rate 112 mL/min (>60); Est Glom Filt Rate - Afr Amer 136 mL/min (>60); Globulin 3.7 g/dL (2.2-4.2); Glucose 132 mg/dL (74-106); High Density Lipoprotein 69 mg/dL; Potassium 3.8 mmol/L (3.5-5.1); Protein, Total 6.4 g/dL (6.4-8.2); Sodium Level 140 mmol/L (136-145); Thyroid Stim Hormone (TSH) 1.21 uIU/mL (0.358-3.74); Triglycerides 94 mg/dL; Very Low Density Lipoprotein 19 mg/dL (5-40)
[2021-06-23 08:47] LABS: Hemoglobin A1c 11.3 % (3.8-5.6)
[2021-06-23 09:05] LABS: Vitamin D,25 Hydroxy 57.1 ng/mL
== END ==
PROVIDERS: PCP Internal Medicine; Referring Provider Family Medicine; Visit Provider Family Medicine
DX: I48.91 Unspecified atrial fibrillation (principal); E11.9 Type 2 diabetes mellitus without complications; I10 Essential (primary) hypertension; E78.5 Hyperlipidemia, unspecified; E55.9 Vitamin D deficiency, unspecified
CPT/HCPCS: 36415; 80053; 80061; 82306; 83036; 84443; 85027

== ENCOUNTER 2021-10-09 16:17 | Emergency (ER) | payer MEDICARE, OTHER, SELFPAY ==
[2021-10-09 16:19] VITALS: BP 147/110; PULSE 76; RESP 16; TEMP 36.7; O2SAT 97; BMI 36.7
[2021-10-09 16:40] VITALS: BP 162/106; PULSE 73; RESP 26; O2SAT 95
[2021-10-09 17:29] LABS: Absolute Lymphocyte Count 1.99 X10^3/uL (0.83-4.51); Absolute Neutrophil Count 4.4 X10^3/uL (2.0-7.7); Basophil# 0.03 X10^3/uL; Basophil% 0.4 % (0-1); Eosinophil# 0.37 X10^3/uL; Eosinophils% 4.9 % (0-5); Hematocrit 44.8 % (40-54); Hemoglobin 14.1 g/dL (13.0-16.5); Lymphocyte # 1.99 X10^3/ul (0.83-4.51); Lymphocyte % 26.6 % (19-41); Mean Corp Hgb Conc 31.5 g/dL (32-36); Mean Corpuscular Hgb 26.5 pg (27.0-32.0); Mean Corpuscular Volume 84.1 fL (80-94); Mean Platelet Vol. 12.2 fl (6.2-12.0); Monocyte# 0.69 X10^3/uL; Monocyte% 9.2 % (0-10); NRBC Flagged by Analyzer 0 % (0-5); Neutrophil # 4.36 X10^3/uL (2.7-7.7); Neutrophil % 58.4 % (47-70); Platelet Count 201 K/mm3 (150-450); RBC Distribution Width CV 14.9 % (11.6-14.6); RBC Distribution Width SD 45.7 fl (35.1-43.9); Red Blood Count 5.33 M/mm3 (4.6-6.2); White Blood Count 7.5 K/mm3 (4.4-11.0)
--- NOTE | 2021-10-09 17:29 | RAD_ITS ---
STUDY: X-RAY CHEST REASON FOR EXAM: Male, 76 years old. Dyspnea. TECHNIQUE: Single AP portable view of the chest. COMPARISON: 03/14/2021. FINDINGS: Diminished inspiratory effort with bibasilar atelectasis. There is no new infiltrate or mass. There is no demonstrated pleural abnormality. Borderline cardiomegaly. Normal mediastinum and ej. Normal visualized pulmonary arteries. Normal visualized aortic arch and descending thoracic aorta. No osseous changes. There is degenerative osteoarthritis of the bilateral shoulders. There is no demonstrated abnormality of the visualized soft tissue structures of the upper abdomen. RAD/Chest 1 View (Portable) IMPRESSION: Limited inspiration with bibasilar atelectasis. There is no other major interval change. Electronically Signed: Stan Redding DO at 17:50 EST Tel [phone], Service support ,
[2021-10-09 17:51] LABS: BNP,B-Type NATRIURETIC PEPTIDE 124.3 pg/mL (0-100)
[2021-10-09 18:30] VITALS: BP 171/112; PULSE 68; RESP 24; TEMP 36.6; O2SAT 96
[2021-10-09 18:52] LABS: Anion Gap 4 (5-15); BUN 19 mg/dL (7-18); BUN/Creat Ratio 19.9 RATIO (10-20); Calcium,Total 9.2 mg/dL (8.5-10.1); Chloride 105 mmol/L (98-107); Creatinine, Serum 0.95 mg/dL (0.70-1.30); EST Glomerular Filtration Rate 81 mL/min (>60); Est Glom Filt Rate - Afr Amer 98 mL/min (>60); Estimated Creatinine Clearance 74.51 ml/min; Glucose 141 mg/dL (74-106); Sodium Level 137 mmol/L (136-145)
[2021-10-09] MEDS: Furosemide 40 MG/4 ML Vial IV (19:04)
--- NOTE | 2021-10-09 19:06 | EX.ED.DYSGE1 ---
HPI History of Present Illness Chief Complaint: Edema Narrative Narrative: Patient is a 76-year-old [place] with past medical history of congestive heart failure. He takes 40 mg of Lasix once a day. Family states that they have noticed some increased leg swelling over the past few days and patient is also coming complaining of increased shortness of breath. Secondary to this he was brought in for evaluation [facility] Home Medications amlodipine 10 mg PO DAILY 02/02/16 [History Last Taken 03/13/21] ergocalciferol (vitamin D2) [Vitamin D2] 50,000 unit PO MARTINEZ 02/02/16 [History Last Taken 03/09/21] furosemide 40 mg PO DAILY 02/02/16 [History Last Taken 03/14/21] potassium chloride [Klor-Con M20] 20 meq PO DAILY 02/02/16 [History Last Taken 03/13/21] ezetimibe 10 mg PO DAILY 09/10/20 [History Last Taken 03/14/21] metformin 1,000 mg PO BID 09/10/20 [History Last Taken 03/14/21] lisinopril 40 mg PO DAILY 03/14/21 [History Last Taken 03/14/21] rivaroxaban 20 mg PO DAILY 03/14/21 [History Last Taken 03/14/21] glimepiride 4 mg PO DAILY@0800 tablet 03/17/21 [Rx Last Taken Unknown] Calmoseptine PRN 10/09/21 [History Last Taken Unknown] acetaminophen 500 mg PO/SL TID 10/09/21 [History Last Taken Unknown] ergocalciferol (vitamin D2) 10/09/21 [History Last Taken Unknown] fluconazole [Diflucan] 100 mg PO DAILY #3 tab 10/09/21 [Rx Last Taken Unknown] fluticasone propionate INTRANASAL PRN 10/09/21 [History Last Taken Unknown] furosemide [Lasix] 40 mg PO BID 7 Days #14 tab 10/09/21 [Rx Last Taken Unknown] insulin glargine [Lantus U-100 Insulin] SUBCUT 10/09/21 [History Last Taken Unknown] metoprolol succinate PO 10/09/21 [History Last Taken Unknown] mirtazapine mg 10/09/21 [History Last Taken Unknown] nystatin 1 applic TOPICAL BID 10 Days #60 g 10/09/21 [Rx Last Taken Unknown] potassium chloride meq PO 10/09/21 [History Last Taken Unknown] quetiapine 10/09/21 [History Last Taken Unknown] rivaroxaban [Xarelto] mg 10/09/21 [History Last Taken Unknown] Allergy/AdvReac Type Severity Reaction Status Date / Time No Known Allergies Allergy Verified 10/09/21 16:19 Social History Smoking Status: Never smoker ROS ROS ED Constitutional Constitutional ED: Denies chills or fever(s) ENT ENT ED: Denies sore throat Cardiovascular Cardiovascular: Denies chest pain Respiratory/Chest Respiratory/Chest: Reports cough and dyspnea Gastrointestinal Gastrointestinal: Denies abdominal pain, diarrhea, nausea or vomiting Genitourinary Genitourinary ED: Denies dysuria Musculoskeletal Musculoskeletal: Denies myalgias Integumentary Reports rash Neurologic Neurologic: Denies headache(s) EXAM Physical Exam Const Vital Signs: 10/09/21 16:19 10/09/21 16:40 10/09/21 16:41 Temperature 98.1 F Temperature Source Temporal Pulse Rate 76 73 Respiratory Rate 16 26 H Respiratory Effort Short of Breath Labored Blood Pressure 147/110 H 162/106 H Blood Pressure Mean 122 124 Pulse Ox 97 95 Oxygen Delivery Method Room Air Room Air 10/09/21 18:30 10/09/21 19:08 Temperature 97.9 F Temperature Source Oral Pulse Rate 68 70 Respiratory Rate 24 H 25 H Respiratory Effort Blood Pressure 171/112 H 178/130 H Blood Pressure Mean 131 146 Pulse Ox 96 96 Oxygen Delivery Method Room Air Room Air Positive well nourished, well developed and obese General Appearance ED: well developed Nutritional Appearance: obese HEENT Reports moist mucous membranes HEENT Narrative: No tongue or lip swelling no oral lesions no airway edema or compromise Eyes PERRL and EOMs intact bilaterally Neck supple Neck Narrative: Trace JVD noted on right Resp normal respiratory effort Resp Narrative: Breath sounds are diminished throughout with faint rhonchi in bilateral bases but no signs of distress Cardio regular rate and regular rhythm Rate: other Other Details: Radial pulses are plus 2 out of 4 bilaterally are equal and symmetric GI normal to inspection, nondistended, normoactive bowel sounds, non-tender, non-distended and no masses GI Narrative: No voluntary guarding or rigidity no pulsatile mass. No fluid wave noted Auscultation: normoactive bowel sounds Palpation: soft Extremity Extremity Narrative: Patient has +2 pitting edema to the bilateral lower extremities that is equal and symmetric Neuro oriented x3 and CN's II-XII intact bilaterally Sensorium / Orientation: alert Psych mental status grossly normal Skin Skin Narrative: Has a cutaneous candidiasis infection of the skin fold of his lower abdomen without obvious abscess formation MDM MDM MDM Narrative Medical decision making narrative: Patient presented to the ER satting in the mid 90s on room air. His exam is consistent with congestive heart failure and therefore there is concern that with his daily Lasix dose he may need IV Lasix for could have kidney damage or pleural effusions. Blood work showed no elevation to his kidney function and electrolytes were stable. Chest x-ray revealed no obvious pleural effusion or signs of infection. On reevaluation he remains in no respiratory distress and is satting in the mid 90s on room air. Therefore at this time I will try to have the patient double his Lasix dose for the next week to see if this helps with symptoms. The son/patient was informed that if symptoms are not improving by Wednesday that he may need reevaluated with possible admission for IV diuretic. He will also be placed on Diflucan and nystatin secondary to the cutaneous candidiasis. The patient and son are agreeable with this plan of care and as he is in no acute distress with need for supplemental oxygen he will be discharged back to nursing him at this time Lab Data Attestation: I reviewed the patient's lab results. Labs: Laboratory Results - last 24 hr 10/09/21 10/09/21 10/09/21 17:10 17:10 17:10 WBC 7.5 RBC 5.33 Hgb 14.1 Hct 44.8 MCV 84.1 MCH 26.5 L MCHC 31.5 L RDW Std Deviation 45.7 H RDW Coeff of [place] 14.9 H Plt Count 201 MPV 12.2 H Immature Gran % (Auto) 0.500 Neut % (Auto) 58.4 Lymph % (Auto) 26.6 [place] % (Auto) 9.2 Eos % (Auto) 4.9 Baso % (Auto) 0.4 Absolute Neuts (auto) 4.4 Absolute Lymphs (auto) 1.99 Nucleated RBC % 0 Sodium Cancelled Potassium Cancelled Chloride Cancelled Carbon Dioxide Cancelled Anion Gap Cancelled BUN Cancelled Creatinine Cancelled Estim Creat Clear Calc Cancelled Est GFR (MDRD) Af Amer Cancelled Est GFR (MDRD) Non-Af Cancelled BUN/Creatinine Ratio Cancelled Glucose Cancelled Calcium Cancelled B-Natriuretic Peptide 124.3 H 10/09/21 18:25 WBC RBC Hgb Hct MCV MCH MCHC RDW Std Deviation RDW Coeff of [place] Plt Count MPV Immature Gran % (Auto) Neut % (Auto) Lymph % (Auto) [place] % (Auto) Eos % (Auto) Baso % (Auto) Absolute Neuts (auto) Absolute Lymphs (auto) Nucleated RBC % Sodium 137 Potassium 4.0 Chloride 105 Carbon Dioxide 28.0 Anion Gap 4 L BUN 19 H Creatinine 0.95 Estim Creat Clear Calc 74.51 Est GFR (MDRD) Af Amer 98 Est GFR (MDRD) Non-Af 81 BUN/Creatinine Ratio 19.9 Glucose 141 H Calcium 9.2 B-Natriuretic Peptide Radiography Diagnostic Testing: Clinical Impression(s) from Imaging Studies Chest X-Ray 10/09/21 17:29 IMPRESSION: Limited inspiration with bibasilar atelectasis. There is no other major interval change. Electronically Signed: Stan Redding DO at 17:50 EST Tel [phone], Service support , Discharge Plan Triage Chief Complaint: Edema ED Provider: Familia Martinez Dx/Rx/DC Orders Clinical Impression: Congestive heart failure, Candidiasis of skin Instructions: ED Heart Failure, Congestive (CHF), ED Fungal Skin Infection (Tinea) Prescriptions: New furosemide [Lasix] 40 mg tablet 40 mg PO BID 7 Days Qty: 14 RF: 0 fluconazole [Diflucan] 100 mg tablet 100 mg PO DAILY Qty: 3 RF: 0 nystatin 100,000 unit/gram powder 1 applic topical BID 10 Days Qty: 60 RF: 0 No Action furosemide 40 MG tablet 40 mg PO DAILY RF: 0 potassium chloride [Klor-Con M20] 20 MEQ tablet 20 meq PO DAILY RF: 0 amlodipine 10 MG tablet 10 mg PO DAILY RF: 0 ergocalciferol (vitamin D2) [Vitamin D2] 50,000 UNIT capsule 50,000 unit PO MARTINEZ RF: 0 metformin 500 MG tablet 1,000 mg PO BID RF: 0 ezetimibe 10 MG tablet 10 mg PO DAILY RF: 0 rivaroxaban 20 MG tablet 20 mg PO DAILY RF: 0 lisinopril 40 MG tablet 40 mg PO DAILY RF: 0 glimepiride 4 MG tablet 4 mg PO DAILY@0800 RF: 0 Lantus U-100 Insulin 100 unit/mL solution SUBCUT RF: 0 metoprolol succinate 100 mg tablet extended release 24 hr PO RF: 0 quetiapine 100 mg tablet RF: 0 potassium chloride 20 mEq tablet,ER particles/crystals PO RF: 0 mirtazapine 15 mg tablet RF: 0 ergocalciferol (vitamin D2) 1,250 mcg (50,000 unit) capsule RF: 0 fluticasone propionate 50 mcg/actuation spray,suspension INTRANASAL PRN (Reason: Nasal Congestion) RF: 0 Xarelto 20 mg tablet RF: 0 Calmoseptine PRN (Reason: Rash) RF: 0 acetaminophen 500 mg PO/SL TID RF: 0 Primary Care Provider: Gregorio Gutiérrez Referrals: Gregorio Gutiérrez MD [Primary Care Provider] - Activity Restrictions/Additional Instructions: Please increase your Lasix dose to 1 pill twice a day for 7 days as directed on the new prescription Disposition Disposition: Home, Self Care
[2021-10-09 19:08] VITALS: BP 178/130; PULSE 70; RESP 25; O2SAT 96
[2021-10-09 19:38] VITALS: BP 178/130; PULSE 70; RESP 20; O2SAT 98
== END 2021-10-09 19:39 | disposition home or self-care (01) ==
PROVIDERS: Emergency Provider Emergency Medicine; PCP Internal Medicine
DX: I50.9 Heart failure, unspecified (principal); B37.2 Candidiasis of skin and nail; Z79.01 Long term (current) use of anticoagulants; J98.11 Atelectasis; E66.9 Obesity, unspecified
CPT/HCPCS: 36415; 71045; 80048; 83880; 85025; 96374; 99284; A4216; J1940

== ENCOUNTER → 2021-10-22 05:00 | Outpatient (REF) | payer MEDICARE, OTHER, SELFPAY ==
[2021-10-22 09:44] LABS: Hemoglobin 13.1 g/dL (13.0-16.5); Mean Corp Hgb Conc 31.2 g/dL (32-36); Mean Corpuscular Hgb 26.9 pg (27.0-32.0); Mean Corpuscular Volume 86.2 fL (80-94); Mean Platelet Vol. 12.6 fl (6.2-12.0); Platelet Count 187 K/mm3 (150-450); RBC Distribution Width CV 15.1 % (11.6-14.6); RBC Distribution Width SD 47.8 fl (35.1-43.9); Red Blood Count 4.87 M/mm3 (4.6-6.2); White Blood Count 6.7 K/mm3 (4.4-11.0)
[2021-10-22 10:08] LABS: Anion Gap 8 (5-15); BUN 18 mg/dL (7-18); BUN/Creat Ratio 21.7 RATIO (10-20); Calcium,Total 8.7 mg/dL (8.5-10.1); Chloride 104 mmol/L (98-107); Creatinine, Serum 0.83 mg/dL (0.70-1.30); EST Glomerular Filtration Rate 95 mL/min (>60); Est Glom Filt Rate - Afr Amer 115 mL/min (>60); Glucose 86 mg/dL (74-106); Potassium 4.2 mmol/L (3.5-5.1); Sodium Level 140 mmol/L (136-145)
== END ==
PROVIDERS: PCP Internal Medicine; Visit Provider Family Medicine
DX: R60.9 Edema, unspecified (principal); R06.02 Shortness of breath
CPT/HCPCS: 36415; 80048; 85027

== ENCOUNTER → 2021-10-29 05:00 | Outpatient (REF) | payer MEDICARE, OTHER, SELFPAY ==
[2021-10-29 07:38] LABS: Hematocrit 40.3 % (40-54); Hemoglobin 12.8 g/dL (13.0-16.5); Mean Corp Hgb Conc 31.8 g/dL (32-36); Mean Corpuscular Hgb 26.2 pg (27.0-32.0); Mean Corpuscular Volume 82.6 fL (80-94); Mean Platelet Vol. 12.4 fl (6.2-12.0); Platelet Count 201 K/mm3 (150-450); RBC Distribution Width CV 14.9 % (11.6-14.6); Red Blood Count 4.88 M/mm3 (4.6-6.2); White Blood Count 5.8 K/mm3 (4.4-11.0)
[2021-10-29 07:48] LABS: Anion Gap 8 (5-15); BUN 18 mg/dL (7-18); BUN/Creat Ratio 19.1 RATIO (10-20); Calcium,Total 8.9 mg/dL (8.5-10.1); Chloride 107 mmol/L (98-107); Creatinine, Serum 0.94 mg/dL (0.70-1.30); EST Glomerular Filtration Rate 82 mL/min (>60); Est Glom Filt Rate - Afr Amer 99 mL/min (>60); Glucose 89 mg/dL (74-106); Potassium 3.8 mmol/L (3.5-5.1); Sodium Level 144 mmol/L (136-145)
== END ==
PROVIDERS: PCP Internal Medicine; Visit Provider Family Medicine
DX: R60.9 Edema, unspecified (principal); R06.02 Shortness of breath
CPT/HCPCS: 36415; 80048; 85027

== ENCOUNTER → 2021-11-27 | Outpatient (REF) | payer MEDICARE, OTHER, SELFPAY ==
[2021-11-27 08:10] LABS: Hematocrit 37.6 % (40-54); Hemoglobin 12.1 g/dL (13.0-16.5); Mean Corp Hgb Conc 32.2 g/dL (32-36); Mean Corpuscular Hgb 30.3 pg (27.0-32.0); Mean Platelet Vol. 9.6 fl (6.2-12.0); Platelet Count 396 K/mm3 (150-450); RBC Distribution Width CV 14.6 % (11.6-14.6); RBC Distribution Width SD 50.9 fl (35.1-43.9); White Blood Count 8.2 K/mm3 (4.4-11.0)
[2021-11-27 08:34] LABS: Hemoglobin A1c 6.1 % (3.8-5.6)
[2021-11-27 08:37] LABS: Anion Gap 8 (5-15); BUN 15 mg/dL (7-18); BUN/Creat Ratio 16.6 RATIO (10-20); Calcium,Total 8.5 mg/dL (8.5-10.1); Chloride 106 mmol/L (98-107); EST Glomerular Filtration Rate 86 mL/min (>60); Est Glom Filt Rate - Afr Amer 104 mL/min (>60); Glucose 162 mg/dL (74-106); Sodium Level 138 mmol/L (136-145)
== END | disposition home or self-care (01) ==
PROVIDERS: PCP Internal Medicine; Visit Provider Family Medicine
DX: R06.02 Shortness of breath (principal); I73.9 Peripheral vascular disease, unspecified; I48.91 Unspecified atrial fibrillation; I10 Essential (primary) hypertension; E78.5 Hyperlipidemia, unspecified
CPT/HCPCS: 36415; 80048; 83036; 85027

== ENCOUNTER 2021-12-27 05:00 | Outpatient (REF) | payer MEDICARE, OTHER, SELFPAY ==
[2021-12-27 08:45] LABS: Anion Gap 4 (5-15); BUN 16 mg/dL (7-18); BUN/Creat Ratio 17.5 RATIO (10-20); Calcium,Total 8.3 mg/dL (8.5-10.1); Chloride 104 mmol/L (98-107); Creatinine, Serum 0.92 mg/dL (0.70-1.30); EST Glomerular Filtration Rate 85 mL/min (>60); Est Glom Filt Rate - Afr Amer 103 mL/min (>60); Glucose 86 mg/dL (74-106); Potassium 3.6 mmol/L (3.5-5.1); Sodium Level 139 mmol/L (136-145)
== END 2021-12-27 23:59 | disposition home or self-care (01) ==
PROVIDERS: PCP Internal Medicine; Visit Provider Family Medicine
DX: E87.8 Other disorders of electrolyte and fluid balance, not elsewhere classified (principal)
CPT/HCPCS: 36415; 80048

== ENCOUNTER → 2022-01-21 | Outpatient (REF) | payer MEDICARE, OTHER, SELFPAY ==
[2022-01-21 09:27] LABS: Hematocrit 43.9 % (40-54); Hemoglobin 13.8 g/dL (13.0-16.5); Mean Corp Hgb Conc 31.4 g/dL (32-36); Mean Corpuscular Hgb 25.9 pg (27.0-32.0); Mean Corpuscular Volume 82.5 fL (80-94); Mean Platelet Vol. 12.6 fl (6.2-12.0); Platelet Count 211 K/mm3 (150-450); RBC Distribution Width CV 15.2 % (11.6-14.6); RBC Distribution Width SD 45.8 fl (35.1-43.9); Red Blood Count 5.32 M/mm3 (4.6-6.2); White Blood Count 6.4 K/mm3 (4.4-11.0)
[2022-01-21 09:29] LABS: Anion Gap 7 (5-15); BUN 17 mg/dL (7-18); BUN/Creat Ratio 18.9 RATIO (10-20); Calcium,Total 9.2 mg/dL (8.5-10.1); Chloride 106 mmol/L (98-107); EST Glomerular Filtration Rate 87 mL/min (>60); Est Glom Filt Rate - Afr Amer 105 mL/min (>60); Glucose 101 mg/dL (74-106); Potassium 3.9 mmol/L (3.5-5.1); Sodium Level 143 mmol/L (136-145)
== END | disposition home or self-care (01) ==
PROVIDERS: PCP Internal Medicine; Referring Provider Family Medicine; Visit Provider Family Medicine
DX: R06.02 Shortness of breath (principal); R60.9 Edema, unspecified
CPT/HCPCS: 36415; 80048; 85027

== ENCOUNTER → 2022-04-23 | Outpatient (REF) | payer MEDICARE, OTHER, SELFPAY ==
[2022-04-23 11:53] LABS: Hematocrit 44.4 % (40-54); Mean Corp Hgb Conc 31.5 g/dL (32-36); Mean Corpuscular Hgb 26.1 pg (27.0-32.0); Mean Corpuscular Volume 82.7 fL (80-94); Mean Platelet Vol. 12.5 fl (6.2-12.0); Platelet Count 190 K/mm3 (150-450); RBC Distribution Width CV 15.6 % (11.6-14.6); RBC Distribution Width SD 46.8 fl (35.1-43.9); Red Blood Count 5.37 M/mm3 (4.6-6.2); White Blood Count 6.3 K/mm3 (4.4-11.0)
[2022-04-23 12:01] LABS: Anion Gap 8 (5-15); BUN 16 mg/dL (7-18); BUN/Creat Ratio 16.1 RATIO (10-20); Calcium,Total 9.3 mg/dL (8.5-10.1); Chloride 103 mmol/L (98-107); Creatinine, Serum 0.99 mg/dL (0.70-1.30); EST Glomerular Filtration Rate 77 mL/min (>60); Est Glom Filt Rate - Afr Amer 94 mL/min (>60); Glucose 152 mg/dL (74-106); Potassium 3.6 mmol/L (3.5-5.1); Sodium Level 139 mmol/L (136-145)
== END | disposition home or self-care (01) ==
PROVIDERS: PCP Internal Medicine; Referring Provider Family Medicine; Visit Provider Family Medicine
DX: I48.91 Unspecified atrial fibrillation (principal); I82.409 Acute embolism and thrombosis of unspecified deep veins of unspecified lower extremity; E11.9 Type 2 diabetes mellitus without complications; I10 Essential (primary) hypertension; Z79.899 Other long term (current) drug therapy
CPT/HCPCS: 36415; 80048; 83036; 85027

== ENCOUNTER → 2022-07-23 | Outpatient (REF) | payer MEDICARE, OTHER, SELFPAY ==
[2022-07-23 08:57] LABS: Hemoglobin 12.9 g/dL (13.0-16.5); Mean Corp Hgb Conc 30.7 g/dL (32-36); Mean Corpuscular Hgb 25.3 pg (27.0-32.0); Mean Corpuscular Volume 82.5 fL (80-94); Mean Platelet Vol. 12.7 fl (6.2-12.0); Platelet Count 179 K/mm3 (150-450); RBC Distribution Width CV 15.6 % (11.6-14.6); RBC Distribution Width SD 46.9 fl (35.1-43.9); Red Blood Count 5.09 M/mm3 (4.6-6.2); White Blood Count 6.2 K/mm3 (4.4-11.0)
[2022-07-23 09:07] LABS: Anion Gap 7 (5-15); BUN 14 mg/dL (7-18); BUN/Creat Ratio 17.1 RATIO (10-20); Calcium,Total 8.8 mg/dL (8.5-10.1); Chloride 104 mmol/L (98-107); Creatinine, Serum 0.82 mg/dL (0.70-1.30); EST Glomerular Filtration Rate 96 mL/min (>60); Est Glom Filt Rate - Afr Amer 117 mL/min (>60); Glucose 89 mg/dL (74-106); Potassium 3.8 mmol/L (3.5-5.1); Sodium Level 140 mmol/L (136-145)
== END ==
PROVIDERS: PCP Internal Medicine; Visit Provider Family Medicine
DX: I48.91 Unspecified atrial fibrillation (principal); E11.9 Type 2 diabetes mellitus without complications; E78.5 Hyperlipidemia, unspecified
CPT/HCPCS: 36415; 80048; 83036; 85027

== ENCOUNTER → 2022-10-28 | Outpatient (REF) | payer MEDICARE, OTHER, SELFPAY ==
[2022-10-28 08:18] LABS: Hematocrit 43.8 % (40-54); Hemoglobin 13.3 g/dL (13.0-16.5); Mean Corp Hgb Conc 30.4 g/dL (32-36); Mean Corpuscular Volume 82.2 fL (80-94); Mean Platelet Vol. 11.9 fl (6.2-12.0); Platelet Count 197 K/mm3 (150-450); RBC Distribution Width CV 15.9 % (11.6-14.6); RBC Distribution Width SD 47.3 fl (35.1-43.9); Red Blood Count 5.33 M/mm3 (4.6-6.2)
[2022-10-28 08:28] LABS: Anion Gap 5 (5-15); BUN 16 mg/dL (7-18); BUN/Creat Ratio 16.2 RATIO (10-20); Chloride 106 mmol/L (98-107); Creatinine, Serum 0.99 mg/dL (0.70-1.30); EST Glomerular Filtration Rate 78 mL/min (>60); Est Glom Filt Rate - Afr Amer 94 mL/min (>60); Glucose 114 mg/dL (74-106); Potassium 3.9 mmol/L (3.5-5.1); Sodium Level 140 mmol/L (136-145)
[2022-10-28 08:37] LABS: Hemoglobin A1c 7.2 % (3.8-5.6)
== END ==
PROVIDERS: PCP Internal Medicine; Visit Provider Family Medicine
DX: I10 Essential (primary) hypertension (principal); I48.20 Chronic atrial fibrillation, unspecified; E11.9 Type 2 diabetes mellitus without complications; I67.9 Cerebrovascular disease, unspecified
CPT/HCPCS: 36415; 80048; 83036; 85027

== ENCOUNTER 2022-11-20 21:08 | Inpatient (IN) | payer MEDICARE, OTHER, SELFPAY ==
[2022-11-20 21:09] VITALS: BP 190/139; PULSE 92; RESP 28; TEMP 36.1; BMI 43.5
--- NOTE | 2022-11-20 21:15 | CT_ITS ---
We are attempting to reach an attending provider to discuss findings. An addendum with communication details will be sent when the communication is complete. STUDY: CT HEAD STROKE PROTOCOL W/O CONTRAST INJECTION REASON FOR EXAM: Male, 77 years old. Neuro deficit. Acute, stroke suspected RADIATION DOSAGE (If Supplied By Facility): CTDIvol = ( ) mGy, DLP = ( 914.22 ) mGycm TECHNIQUE: Transaxial CT imaging of the brain was performed without administration of intravenous contrast material. Individualized dose optimization techniques were used for this CT. COMPARISON: March 14, 2021. FINDINGS: Normal soft tissue structures. Normal calvarium. Normal size ventricles and extra-axial spaces for the patient''s age. There is low attenuation in the left parietal region and left occipitoparietal parietal region, suggesting remote infarcts. There are small punctate calcifications of the bilateral basal ganglia. The differential diagnostic considerations includes: Down?s syndrome, Trisomy 5, mitochondrial encephalopathies, HIV encephalitis, or Cockayne syndrome. Normal brainstem. Normal cerebellum. There is no intracranial hemorrhage. There are no findings of an acute ischemic infarction. Normal visualized paranasal sinuses. 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 There is no evidence for acute intracranial or calvarial abnormality. Electronically Signed: Stan Redding DO at 23:10 EST Reading Location ID and State: [facility] / [place] Tel [phone], Service support ,
--- NOTE | 2022-11-20 21:15 | EKG12_ITS ---
Test Reason : POSS. STROKE Blood Pressure : / mmHG Vent. Rate : 057 BPM Atrial Rate : 000 BPM P-R Int : 000 ms QRS Dur : 094 ms QT Int : 392 ms P-R-T Axes : 000 -52 146 degrees QTc Int : 381 ms Atrial fibrillation with slow ventricular response Left anterior fascicular block Septal infarct , age undetermined Inferior infarct , age undetermined T wave abnormality, consider lateral ischemia Abnormal ECG Confirmed by MICHELLE MIX, CALLIE ([id number]), newspaper editor managing CHRISTIAN PADILLA ([id number]) on 11/24/2022 11:44:55 AM Referred By: EDEN Confirmed By:CALLIE MARTINEZ MD
--- NOTE | 2022-11-20 21:16 | CT_ITS ---
STUDY: CTA HEAD AND NECK WITH CONTRAST REASON FOR EXAM: Male, 77 years old. Neuro deficit, acute, stroke suspected RADIATION DOSAGE (If Supplied By Facility): CTDIvol = ( 35.17 ) mGy, DLP = ( 787.99 ) mGycm TECHNIQUE: CT angiography was performed with a multi-detector CT scanner. Data acquisition was obtained from the skull base through the vertex following intravenous administration of IV 100mL [id number]-[id number]. MIP images were reconstructed from the axial data set. Post-processing of the angiographic images was performed, with multiplanar reformation and 3D reconstruction. Individualized dose optimization techniques were used for this CT. COMPARISON: No relevant priors. FINDINGS: Normal bilateral petrous carotid arteries. There is calcified plaque formation of the right cavernous carotid artery, without a cross-sectional luminal stenosis. There is calcified plaque formation of the left cavernous carotid artery, without a cross-sectional luminal stenosis. Normal right A1 segments of the anterior cerebral artery. Normal left A1 segments of the anterior cerebral artery. There is non-visualization of the anterior communicating artery (ACOM). Normal bilateral A2 segments of the anterior cerebral arteries. Normal right M1 and M2 segments of the middle cerebral arteries, with a normal M1 bifurcation. Markedly small M1 segment of the left middle cerebral artery. Normal bifurcation. The M2 branches also appear small in diameter however there is no evidence of occlusion. M2 branches. Left There is non-visualization of the right posterior communicating artery (PCOM). There is non-visualization of the left posterior communicating artery (PCOM). There is a small atretic right vertebral artery with a dominant left vertebral artery. There is tortuosity with elongation of the basilar artery. The visualized bilateral superior cerebellar (SCA) arteries are normal. Diminutive bilateral P1, P2 and visualized P3 segments of the posterior cerebral arteries. Without visualized occlusion. There is no demonstrated aneurysm of the [place]. There is no demonstrated abnormality of the visualized brain. AORTIC ARCH: Normal visualized aortic arch. Normal origins of the brachiocephalic, left common carotid, and left subclavian arteries. RIGHT CAROTID ARTERIES: Normal right common carotid artery (CCA). Normal right common carotid bulb. Normal origin of the right internal carotid (ICA) artery without a hemodynamically significant stenosis. Normal visualized cervical portion of the right internal carotid artery. Normal origin of the right external carotid artery (ECA). LEFT CAROTID ARTERIES: Normal left common carotid artery (CCA). Atherosclerotic changes of the carotid bifurcation and carotid bulb without stenosis. Normal origin of the left internal carotid (ICA) artery without a hemodynamically significant stenosis. Normal visualized cervical portion of the left internal carotid artery. Normal origin of the left external carotid artery (ECA). VERTEBRAL ARTERIES: Normal bilateral vertebral arteries. CT/STROKE CTA Head AND Neck W/Con IMPRESSION: 1. Atherosclerotic changes of the left carotid bifurcation and carotid bulb without significant stenosis. 2. Narrowed left MCA without evidence of occluded vessels. 3. Tortuous basilic artery. The bilateral posterior cerebral arteries are small diameter however there is no visualized obstruction. N.B. : The above Results were Read Back by Stan Redding DO to Jay Nagel MD, and understanding confirmed on 11/20/2022 23:21:13 (ET). Electronically Signed: Stan Redding DO at 23:22 EST ,
--- NOTE | 2022-11-20 21:17 | EDS_ITS ---
HPI History of Present Illness Chief Complaint: Neuro S/Sx Informant: EMS Narrative Narrative: History is really from EMS. Patient is combative and denies any symptoms. I can get no history at all from him. Evidently this patient is in a nursing facility. He has been nonambulatory for at least a year. But normally he is conversant. He has normal motion of his arms and legs just not strong enough to walk. alf called EMS for possible stroke. I do not know the time of onset of this. I do not know when he was last normal. However, I talked to the paramedics. When they arrived they states it was very clear that the patient could not move his left arm or left leg at all. He was talking but very little. I do not know if he had dysarthria or expressive aphasia. I have no idea if he had visual loss. As they brought the patient out into the squad he started to move arms and legs and then got somewhat combative. He keeps saying he wants to sit up. He denies he had any symptoms at all. One of the local police officers knows this patient. He is evidently not normally combative like this. Beyond this I cannot get any real history. I am unable to obtain review of systems as the patient is combative and denies wanting to talk to anybody about this. He just wants to get up and leave but he is nonambulatory. Of note, patient is already on Xarelto and has a history of atrial fibrillation. He has also had prior seizures but I do not have any report that he had 1 tonight. He also has history of psychosis and paranoid schizophrenia. I do not see history of prior stroke listed on the paperwork that I have seen so far. [facility] Medical History (Updated 11/21/22 @ 00:[address] Jay Nagel MD) Cerebrovascular disease, unspecified Chronic atrial fibrillation Difficulty waking Epilepsy, unspecified, not intractable, without status epilepticus Essential hypertension History of falling Hyperlipidemia Insomnia, unspecified Major depressive disorder Morbid obesity Muscular weakness Obstructive sleep apnea Osteoarthritis of knee Other psychotic disorder not due to a substance or known physiological condition Pain in joint Paranoid schizophrenia Paroxysmal atrial fibrillation Personal history of pulmonary embolism Personal history of venous thrombosis and embolism Shortness of breath Tremor, unspecified Type 2 diabetes mellitus Unspecified glaucoma Venous insufficiency Vitamin A deficiency Home Medications amlodipine 10 mg tablet 10 mg PO DAILY BP 02/02/16 [History Last Taken 03/13/21] ergocalciferol (vitamin D2) 1,250 mcg (50,000 unit) capsule (Vitamin D2) 50,000 unit PO MARTINEZ 02/02/16 [History Last Taken 03/09/21] furosemide 40 mg tablet 40 mg PO DAILY 02/02/16 [History Last Taken 03/14/21] potassium chloride 20 mEq tablet,extended release(part/cryst) (Klor-Con M) 20 meq PO DAILY 02/02/16 [History Last Taken 03/13/21] ezetimibe 10 mg tablet 10 mg PO DAILY 09/10/20 [History Last Taken 03/14/21] metformin 500 mg tablet 1,000 mg PO BID DM 09/10/20 [History Last Taken 03/14/21] lisinopril 40 mg tablet 40 mg PO DAILY BP 03/14/21 [History Last Taken 03/14/21] rivaroxaban 20 mg tablet 20 mg PO DAILY 03/14/21 [History Last Taken 03/14/21] glimepiride 4 mg tablet 4 mg PO DAILY@0800 03/17/21 [Rx Last Taken Unknown] Calmoseptine PRN Rash 10/09/21 [History Last Taken Unknown] acetaminophen 500 mg PO/SL TID 10/09/21 [History Last Taken Unknown] ergocalciferol (vitamin D2) 1,250 mcg (50,000 unit) capsule 10/09/21 [History Last Taken Unknown] fluconazole 100 mg tablet (Diflucan) 100 mg PO DAILY #3 tabs 10/09/21 [Rx Last Taken Unknown] fluticasone propionate 50 mcg/actuation nasal spray,suspension intranasal PRN Nasal Congestion 10/09/21 [History Last Taken Unknown] furosemide 40 mg tablet (Lasix) 40 mg PO BID 7 days #14 tabs 10/09/21 [Rx Last Taken Unknown] insulin glargine 100 unit/mL subcutaneous solution (Lantus U-100 Insulin) subcut 10/09/21 [History Last Taken Unknown] metoprolol succinate 100 mg tablet,extended release 24 hr PO 10/09/21 [History Last Taken Unknown] mirtazapine 15 mg tablet mg 10/09/21 [History Last Taken Unknown] nystatin 100,000 unit/gram topical powder 1 applic topical BID 10 days #60 grams 10/09/21 [Rx Last Taken Unknown] potassium chloride 20 mEq tablet,extended release(part/cryst) meq PO 10/09/21 [History Last Taken Unknown] quetiapine 100 mg tablet 10/09/21 [History Last Taken Unknown] rivaroxaban 20 mg tablet (Xarelto) mg 10/09/21 [History Last Taken Unknown] Allergy/AdvReac Type Severity Reaction Status Date / Time No Known Allergies Allergy Verified 11/20/22 21:14 Social History Smoking Status: Never smoker ROS ROS ED ROS Narrative Patient is combative. He is trying to get up out of bed. He is not at all cooperative. He fights off exam intermittently. I cannot get a review of systems. Review of Systems ROS Unobtainable: due to mental condition Neurologic Neurologic: Reports weakness EXAM Physical Exam Const Vital Signs: 11/20/22 21:09 11/20/22 21:09 11/20/22 22:24 Temperature 96.9 F L Temperature Source Temporal Pulse Rate 92 Respiratory Rate 28 H Blood Pressure 190/139 H Blood Pressure Mean 156 Pulse Ox 95 Oxygen Delivery Method Room Air Positive well nourished, well developed and obese Constitutional Narrative: Patient is trying to sit up. He is talking very clearly. He is telling people to get away from him. He is denying that he had any weakness. General Appearance ED: well developed Nutritional Appearance: obese HEENT Reports moist mucous membranes Negative for trauma Eyes Eyes Narrative: I cannot assess visual welsh. He does appear to be able to move his eyes both left and right of center. I cannot assess pupillary function because I cannot get him to sit still long enough to evaluate this. Neck no JVD Resp normal respiratory effort Resp Narrative: I did get a quick listen to his lungs. They do sound clear. But exam is limited. There is no notable tenderness. Cardio Cardio Narrative: With the patient talking and moving I cannot get a good auscultation of his heart. I cannot tell if there is murmurs or even if there is regularity or irregularity. GI normal to inspection, nondistended, normoactive bowel sounds and soft to palpation GI Narrative: No apparent tenderness on exam. Palpation: tender Extremity Extremity Narrative: Bilateral edema. But he is moving all extremities Neuro Neuro Narrative: Patient is awake and alert. I cannot get him to answer orientation questions. He is moving all extremities. He seems equally strong left and right. I do not see any facial droop. His speech is clear in both words and content. I am not picking up dysarthria or aphasia. But he is combative and appears somewhat confused. It sounds like he may occasionally have mild confusion but the combativeness is not typical for him. Psych Psych Narrative: See above. Attitude: agitated Skin Skin Narrative: He does have some wound dressings on his lower extremities which are apparently chronic. I cannot evaluate the details of these. MDM MDM MDM Narrative Medical decision making narrative: CT did not show any acute process. Patient's symptoms resolved prior to getting here in terms of weakness. But he did have some combativeness. His brother states sometimes he gets very upset and combative but that is not a typical regular thing. His blood work is not showing any marked abnormalities of the CBC. PT is high likely because he is on Xarelto. Electrolytes show no marked abnormalities but his glucose is a bit up to 174. Patient did have to end up getting 2 doses of Ativan and some restraints initially to be able to get him evaluated appropriately. I normally would not sedate somebody who clinically has had a recent TIA, but we needed to get an evaluation. If this did not work we might have to go further to intubation. Happily we did not have to do that. I get no report from EMS or the intermediate that he ever had seizure activity or was unresponsive. But they do report significant left-sided weakness. Patient was evaluated by teleneurology through [facility]. They recommended admission/further work-up with MRI. Lab Data Attestation: I reviewed the patient's lab results. Labs: Laboratory Results - last 24 hr 11/20/22 11/20/22 11/20/22 21:45 21:45 21:45 WBC 7.8 RBC 5.93 Hgb 15.1 Hct 48.0 MCV 80.9 MCH 25.5 L MCHC 31.5 L RDW Std Deviation 45.5 H RDW Coeff of Roberth 15.6 H Plt Count 218 MPV 11.4 Immature Gran % (Auto) 0.300 Neut % (Auto) 47.3 Lymph % (Auto) 39.4 [place] % (Auto) 9.9 Eos % (Auto) 2.7 Baso % (Auto) 0.4 Absolute Neuts (auto) 3.7 Absolute Lymphs (auto) 3.07 Nucleated RBC % 0 PT 19.3 H INR 1.7 APTT 32.1 Sodium 139 Potassium 4.0 Chloride 103 Carbon Dioxide 29.0 Anion Gap 7 BUN 17 Creatinine 1.10 Estim Creat Clear Calc 63.31 Est GFR (MDRD) Af Amer 83 Est GFR (MDRD) Non-Af 69 BUN/Creatinine Ratio 15.5 Glucose 174 H Calcium 9.0 Troponin I High Sens 27 Radiography Diagnostic Testing: Clinical Impression(s) from Imaging Studies Brain CT 11/20/22 21:15 IMPRESSION: 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 There is no evidence for acute intracranial or calvarial abnormality. Electronically Signed: Stan Redding DO at 23:10 EST Reading Location ID and State: [employer] 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 There is no evidence for acute intracranial or calvarial abnormality. N.B. : The above Results were Read Back by Stan Redding DO to Jay Nagel MD, and understanding confirmed on 11/20/2022 23:12:44 (ET). Electronically Signed: Stan Redding DO at 23:10 EST Reading Location ID and State: [employer] / [employer] Tel [phone], Service support , Head/Neck CTA 11/20/22 21:16 IMPRESSION: 1. Atherosclerotic changes of the left carotid bifurcation and carotid bulb without significant stenosis. 2. Narrowed left MCA without evidence of occluded vessels. 3. Tortuous basilic artery. The bilateral posterior cerebral arteries are small diameter however there is no visualized obstruction. N.B. : The above Results were Read Back by Stan Redding DO to Jay Nagel MD, and understanding confirmed on 11/20/2022 23:21:13 (ET). Electronically Signed: Stan Redding DO at 23:22 EST Reading Location ID and State: [employer] / [employer] Tel [phone], Service support , ADDENDUM: 11/20/22 2329 IMPRESSION: 1. Atherosclerotic changes of the left carotid bifurcation and carotid bulb without significant stenosis. 2. Narrowed left MCA without evidence of occluded vessels. 3. Tortuous basilic artery. The bilateral posterior cerebral arteries are small diameter however there is no visualized obstruction. N.B. : The above Results were Read Back by Stan Redding DO to Jay Nagel MD, and understanding confirmed on 11/20/2022 23:21:13 (ET). Electronically Signed: Stan Redding DO at 23:22 EST , Chest X-Ray 11/20/22 22:54 IMPRESSION: Cardiomegaly without acute pulmonary disease. Electronically Signed: Stan Redding DO at 23:34 EST Reading Location ID and State: [employer] / [place] Tel [phone], Service support , Chest x-ray shows some cardiomegaly but no acute process. CT of the head showed no acute sign of stroke. CTA showed narrowed left MCA without occlusion. Bilateral posterior cerebral arteries were also very small diameter but no obstruction. Discharge Plan Triage Chief Complaint: Neuro S/Sx ED Provider: Jay Nagel Dx/Rx/DC Orders Clinical Impression: TIA (transient ischemic attack), Combative behavior, Hyperglycemia Prescriptions: No Action furosemide 40 MG tablet 40 mg PO DAILY Label Comments: water pill potassium chloride [Klor-Con M20] 20 MEQ tablet 20 meq PO DAILY Label Comments: supplement amlodipine 10 MG tablet 10 mg PO DAILY Label Comments: blood pressure ergocalciferol (vitamin D2) [Vitamin D2] 50,000 UNIT capsule 50,000 unit PO MARTINEZ Label Comments: takes on mondays supplement metformin 500 MG tablet 1,000 mg PO BID ezetimibe 10 MG tablet 10 mg PO DAILY rivaroxaban 20 MG tablet 20 mg PO DAILY lisinopril 40 MG tablet 40 mg PO DAILY glimepiride 4 MG tablet 4 mg PO DAILY@0800 0RF Lantus U-100 Insulin 100 unit/mL solution SUBCUT metoprolol succinate 100 mg tablet extended release 24 hr PO quetiapine 100 mg tablet potassium chloride 20 mEq tablet,ER particles/crystals PO mirtazapine 15 mg tablet ergocalciferol (vitamin D2) 1,250 mcg (50,000 unit) capsule fluticasone propionate 50 mcg/actuation spray,suspension INTRANASAL PRN (Reason: Nasal Congestion) Xarelto 20 mg tablet Calmoseptine PRN (Reason: Rash) acetaminophen 500 mg PO/SL TID furosemide [Lasix] 40 mg tablet 40 mg PO BID 7 Days Qty: 14 0RF fluconazole [Diflucan] 100 mg tablet 100 mg PO DAILY Qty: 3 0RF Rx Instructions: 1 pill by mouth every 3 days for 3 doses nystatin 100,000 unit/gram powder 1 applic topical BID 10 Days Qty: 60 0RF Primary Care Provider: Gregorio Gutiérrez Referrals: Gregorio Gutiérrez MD [Primary Care Provider] - Disposition Disposition: Acute Care Hospital [facility]
[2022-11-20] MEDS: LORazepam 2 MG/ML Syringe 1 MG IV ×2 (21:19→22:33)
[2022-11-20 21:50] LABS: Absolute Lymphocyte Count 3.07 X10^3/uL (0.83-4.51); Absolute Neutrophil Count 3.7 X10^3/uL (2.0-7.7); Basophil# 0.03 X10^3/uL; Basophil% 0.4 % (0-1); Eosinophil# 0.21 X10^3/uL; Eosinophils% 2.7 % (0-5); Hemoglobin 15.1 g/dL (13.0-16.5); Lymphocyte # 3.07 X10^3/ul (0.83-4.51); Lymphocyte % 39.4 % (19-41); Mean Corp Hgb Conc 31.5 g/dL (32-36); Mean Corpuscular Hgb 25.5 pg (27.0-32.0); Mean Corpuscular Volume 80.9 fL (80-94); Mean Platelet Vol. 11.4 fl (6.2-12.0); Monocyte# 0.77 X10^3/uL; Monocyte% 9.9 % (0-10); NRBC Flagged by Analyzer 0 % (0-5); Neutrophil # 3.69 X10^3/uL (2.7-7.7); Neutrophil % 47.3 % (47-70); Platelet Count 218 K/mm3 (150-450); RBC Distribution Width CV 15.6 % (11.6-14.6); RBC Distribution Width SD 45.5 fl (35.1-43.9); Red Blood Count 5.93 M/mm3 (4.6-6.2); White Blood Count 7.8 K/mm3 (4.4-11.0)
--- NOTE | 2022-11-20 21:56 | ED.RN ---
PATIENT PRESENTS WITH ALERTED MENTAL STATUS WITH SEVERE CONFUSION AND ACTING OUT TOWARDS STAFF. PATIENT SWINGING AT STAFF AND KEEPS TRYING TO CRAWL OUT OF BED. PATIENT REQUIRES MEDICATION AND RESTRAINTS AT THIS. UNABLE TO COMPLETE ASSESSMENT AT THIS TIME. PATIENT MOVING ALL EXTREMITIES.
[2022-11-20 22:09] LABS: International Normalized Ratio 1.7; Prothrombin Time (Protime)PT. 19.3 SECONDS (11.7-14.9)
[2022-11-20 22:10] LABS: Partial Thromboplast Time 32.1 Seconds (24.1-36.2)
[2022-11-20 22:22] LABS: Anion Gap 7 (5-15); BUN 17 mg/dL (7-18); BUN/Creat Ratio 15.5 RATIO (10-20); Chloride 103 mmol/L (98-107); EST Glomerular Filtration Rate 69 mL/min (>60); Est Glom Filt Rate - Afr Amer 83 mL/min (>60); Estimated Creatinine Clearance 63.31 ml/min; Glucose 174 mg/dL (74-106); Sodium Level 139 mmol/L (136-145); Troponin-I HS 27 pg/mL (3.0-78.0)
[2022-11-20 22:24] VITALS: O2SAT 95
--- NOTE | 2022-11-20 22:32 | ED.RN ---
2225: Attempt to take patient to CT for head CT, he would not hold still for test. Dr. Nagel notified.
--- NOTE | 2022-11-20 22:54 | RAD_ITS ---
STUDY: X-RAY CHEST REASON FOR EXAM: Male, 77 years old. Facet. Acute stroke suspected. TECHNIQUE: Single AP portable view of the chest. COMPARISON: October 09, 2021. FINDINGS: The lungs are clear and expanded. There is no demonstrated pleural abnormality. Stable cardiomegaly. Normal mediastinum and ej. Normal visualized pulmonary arteries. Normal visualized aortic arch and descending thoracic aorta. The thoracic spine is obscured by the mediastinum. There is degenerative osteoarthritis of the bilateral shoulders. There is no demonstrated abnormality of the visualized soft tissue structures of the upper abdomen. RAD/Chest 1 View IMPRESSION: Cardiomegaly without acute pulmonary disease. Electronically Signed: Stan Redding DO at 23:34 EST ,
[2022-11-21] VITALS (18 sets, daily range): BP systolic 141–188; BP diastolic 87–116; PULSE 42–98; RESP 16–28; TEMP 36.1–37.3; O2SAT 95–100; BMI 38.5
--- NOTE | 2022-11-21 00:28 | HP.PCM.HOS_ITS ---
[facility] - General General Date of Admission: 11/21/22 Date of Service: 11/21/22 Chief Complaint: Left-sided weakness HPI Narrative LAURA MCDUFFIE, is a 77 M with a significant history of paranoid schizophrenia; psychosis; peripheral artery disease; history of PE and DVT; hypertension, diabetes mellitus and seizure disorder who presents to the emergency department with left-sided weakness. Patient's presented from the correction. Time of onset of his weakness is unknown. Reportedly when paramedics arrived patient was unable to move his left side. However when patient was on the brennan he began to move his left side and later on he was attempting to get off the brennan. However report form someone who knows patient, is that at baseline patient is unable to ambulate by himself or he needs major assistance in ambulation. At the emergency department his symptoms had resolved. At the ED, because of agitation patient was given some Ativan to calm him down for CT. History was taken from emergency department doctor as patient's could not p rovide history secondary to receiving Ativan. Emergent department doctor report that on presentation patient's speech was clear with no dysarthria or aphasia [facility] Medical History Cerebrovascular disease, unspecified Chronic atrial fibrillation Difficulty waking Epilepsy, unspecified, not intractable, without status epilepticus Essential hypertension History of falling Hyperlipidemia Insomnia, unspecified Major depressive disorder Morbid obesity Muscular weakness Obstructive sleep apnea Osteoarthritis of knee Other psychotic disorder not due to a substance or known physiological condition Pain in joint Paranoid schizophrenia Paroxysmal atrial fibrillation Personal history of pulmonary embolism Personal history of venous thrombosis and embolism Shortness of breath Tremor, unspecified Type 2 diabetes mellitus Unspecified glaucoma Venous insufficiency Vitamin A deficiency Home Medications amlodipine 10 mg tablet 10 mg PO DAILY BP 02/02/16 [History Last Taken 03/13/21] ergocalciferol (vitamin D2) 1,250 mcg (50,000 unit) capsule (Vitamin D2) 50,000 unit PO MARTINEZ 02/02/16 [History Last Taken 03/09/21] furosemide 40 mg tablet 40 mg PO DAILY 02/02/16 [History Last Taken 03/14/21] potassium chloride 20 mEq tablet,extended release(part/cryst) (Klor-Con M) 20 meq PO DAILY 02/02/16 [History Last Taken 03/13/21] ezetimibe 10 mg tablet 10 mg PO DAILY 09/10/20 [History Last Taken 03/14/21] metformin 500 mg tablet 1,000 mg PO BID DM 09/10/20 [History Last Taken 03/14/21] lisinopril 40 mg tablet 40 mg PO DAILY BP 03/14/21 [History Last Taken 03/14/21] rivaroxaban 20 mg tablet 20 mg PO DAILY 03/14/21 [History Last Taken 03/14/21] glimepiride 4 mg tablet 4 mg PO DAILY@0800 03/17/21 [Rx Last Taken Unknown] Calmoseptine PRN Rash 10/09/21 [History Last Taken Unknown] acetaminophen 500 mg PO/SL TID 10/09/21 [History Last Taken Unknown] ergocalciferol (vitamin D2) 1,250 mcg (50,000 unit) capsule 10/09/21 [History Last Taken Unknown] fluconazole 100 mg tablet (Diflucan) 100 mg PO DAILY #3 tabs 10/09/21 [Rx Last Taken Unknown] fluticasone propionate 50 mcg/actuation nasal spray,suspension intranasal PRN Nasal Congestion 10/09/21 [History Last Taken Unknown] furosemide 40 mg tablet (Lasix) 40 mg PO BID 7 days #14 tabs 10/09/21 [Rx Last Taken Unknown] insulin glargine 100 unit/mL subcutaneous solution (Lantus U-100 Insulin) subcut 10/09/21 [History Last Taken Unknown] metoprolol succinate 100 mg tablet,extended release 24 hr PO 10/09/21 [History Last Taken Unknown] mirtazapine 15 mg tablet mg 10/09/21 [History Last Taken Unknown] nystatin 100,000 unit/gram topical powder 1 applic topical BID 10 days #60 grams 10/09/21 [Rx Last Taken Unknown] potassium chloride 20 mEq tablet,extended release(part/cryst) meq PO 10/09/21 [ History Last Taken Unknown] quetiapine 100 mg tablet 10/09/21 [History Last Taken Unknown] rivaroxaban 20 mg tablet (Xarelto) mg 10/09/21 [History Last Taken Unknown] Allergy/AdvReac Type Severity Reaction Status Date / Time No Known Allergies Allergy Verified 11/20/22 21:14 Family History Other CVA (cerebral vascular accident) Diabetes Heart disease Hypertension Surgical History unable to obtain unable to obtain (Secondary to receiving Ativan in the ED. ) Social History Smoking Status: Never smoker ROS Review of Systems ROS Unobtainable: other Details: Unable to obtain secondary patient receiving Ativan at the ED. Family was at bedside could not provide history either. Vital Signs Vital Signs Vital Signs: 11/20/22 21:09 11/20/22 21:09 11/20/22 22:24 Temperature 96.9 F L Temperature Source Temporal Pulse Rate 92 Respiratory Rate 28 H Blood Pressure 190/139 H Blood Pressure Mean 156 Pulse Ox 95 Oxygen Delivery Method Room Air Weight Weight: 153.9 kg Body Mass Index (BMI) 43.5 Physical Exam Narrative Physical exam: General: Well-nourished, well-developed. Head: Normocephalic, atraumatic, no tenderness Eyes: Vision is grossly intact. EOMI ENT, no trauma, moist mucous membranes, no rhinorrhea Neck: Nontender, No thyromegaly. CVS: Regular rate and rhythm. S1-S2 present. No murmur, gallop or rub. Respiratory : clear to auscultation bilaterally, chest wall nontender, no wheezing Abdomen: Soft, nontender, nondistended, normal bowel sounds, no masses : Deferred Back: Nontender, no CVA tenderness, no midline spinal tenderness, deformities, step-offs Extremities: Nontender full range of motion, no trauma Skin: Normal color, no trauma, abrasions Neuro: Alert, left, cranial nerves II through XII grossly intact. Strength in bilateral upper extremity 5 out of 5. Patient does not raise bilateral legs upon command. Neither does he hold bilateral legs when passively raised. Plantarflex 5 out of 5 bilaterally. No hyperreflexia from deep tendon reflexes of the knee reflex in the elbow reflex. Psychiatry: Normal mood. Normal affect. Not depressed. Not anxious. Results Lab / Micro Data Result Diagrams: 11/20/22 21:45 11/20/22 21:45 Labs: Laboratory Results - last 24 hr 11/20/22 21:45: WBC 7.8, RBC 5.93, Hgb 15.1, Hct 48.0, MCV 80.9, MCH 25.5 L, MCHC 31.5 L, RDW Std Deviation 45.5 H, RDW Coeff of Roberth 15.6 H, Plt Count 218, MPV 11.4, Immature Gran % (Auto) 0.300, Neut % (Auto) 47.3, Lymph % (Auto) 39.4, [place] % (Auto) 9.9, Eos % (Auto) 2.7, Baso % (Auto) 0.4, Absolute Neuts (auto) 3.7, Absolute Lymphs (auto) 3.07, Nucleated RBC % 0 11/20/22 21:45: PT 19.3 H, INR 1.7, APTT 32.1 11/20/22 21:45: Sodium 139, Potassium 4.0, Chloride 103, Carbon Dioxide 29.0, Anion Gap 7, BUN 17, Creatinine 1.10, Estim Creat Clear Calc 63.31, Est GFR (MDRD) Af Amer 83, Est GFR (MDRD) Non-Af 69, BUN/Creatinine Ratio 15.5, Glucose 174 H, Calcium 9.0, Troponin I High Sens [address] 11/20/22 21:15 IMPRESSION: 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 There is no evidence for acute intracranial or calvarial abnormality. Electronically Signed: Stan Redding DO at 23:10 EST Reading Location ID and State: [address] [place] [address] Tel [phone], Service support , ADDENDUM: 11/20/22 2319 IMPRESSION: 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 There is no evidence for acute intracranial or calvarial abnormality. N.B. : The above Results were Read Back by Stan Redding DO to Jay Nagel MD, and understanding confirmed on 11/20/2022 23:12:44 (ET). Electronically Signed: Stan Redding DO at 23:10 EST Reading Location ID and State: [address] [place] [address] Tel [phone], Service support , Head/Neck CTA 11/20/22 21:16 IMPRESSION: 1. Atherosclerotic changes of the left carotid bifurcation and carotid bulb without significant stenosis. 2. Narrowed left MCA without evidence of occluded vessels. 3. Tortuous basilic artery. The bilateral posterior cerebral arteries are small diameter however there is no visualized obstruction. N.B. : The above Results were Read Back by Stan Redding DO to Jay Nagel MD, and understanding confirmed on 11/20/2022 23:21:13 (ET). Electronically Signed: Stan eRdding DO at 23:22 EST Reading Location ID and State: [place] / [place] Tel [phone], Service support , ADDENDUM: 11/20/22 2329 IMPRESSION: 1. Atherosclerotic changes of the left carotid bifurcation and carotid bulb without significant stenosis. 2. Narrowed left MCA without evidence of occluded vessels. 3. Tortuous basilic artery. The bilateral posterior cerebral arteries are small diameter however there is no visualized obstruction. N.B. : The above Results were Read Back by Stan Redding DO to Jay Nagel MD, and understanding confirmed on 11/20/2022 23:21:13 (ET). Electronically Signed: Stan Redding DO at 23:22 EST , Chest X-Ray 11/20/22 22:54 IMPRESSION: Cardiomegaly without acute pulmonary disease. Electronically Signed: Stan Redding DO at 23:34 EST Reading Location ID and State: [facility] [employer] Tel [phone], Service support , Assessment & Plan Assessment/Plan (1) TIA (transient ischemic attack): PLAN: Plan TIA Serial NINDS NIH Scale ordered Impression of head CT by radiology: 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 No evidence of acute intracranial or calvarial abnormality. Actual CT head was visualized and independent interpreted and I agree with direct interpretation. Upon my personal head CT image review: I agree with radiologist interpretation. Head and neck CTA with atherosclerotic changes of left carotid bifurcation and carotid bulb without segment stenosis. Narrowed left MCA with evidence of occluded vessels. Tortuous basilar artery. Bilateral posterior cerebral arteries are small diameter with no visualized obstruction. Lipid profile and A1c ordered. Physical therapy, occupational therapy and speech therapy to work with patient. N.p.o. until bedside swallow eval. Daily aspirin. High intensity statin ordered. Home Zetia continued. Permissive hypertension. Control blood pressure with labetalol for systolic blood pressure of more than 220 or diastolic blood pressure of more than 120. MRI of head on it. Ativan IV enroute to MRI. Echocardiogram ordered. A. fib Patient with A. fib with slow ventricular response at emergency department. Patient telemetry. Home Xarelto will be continued. Diabetes mellitus Patient with hyperglycemia on presentation Monitor Accu-Cheks Correction scale insulin ordered. Hypertension Blood pressure is elevated. Hold home blood pressure medication for permissive hypertension. As needed hydralazine and labetalol as above Morbid Obesity: BMI: 43.6 kg/m?. Complicates care. Lifestyle modification recommended. DVT prophylaxis Not indicated as patient is on Xarelto for history of DVT and A. fib. Xarelto to be continued. Charges/Coding Visit Charges OBSV E&M: 26893 Initial observation care L3
--- NOTE | 2022-11-21 02:18 | MRI_ITS ---
We are attempting to reach an attending provider to discuss findings. An addendum with communication details will be sent when the communication is complete. EXAM: MR HEAD WITHOUT INTRAVENOUS CONTRAST CLINICAL INDICATION: CVA. TECHNIQUE: Multiplanar and multisequence MR images of the brain were obtained without intravenous contrast. This report was created using [employer] report generation technology. COMPARISON: CT head without contrast and CTA head and neck with contrast 11/20/2022. FINDINGS: BRAIN AND EXTRA-AXIAL SPACES: Small diffusion restriction in the right lateral occipitotemporal gyrus. Multiple T2 FLAIR hyperintensity foci in the white matter of both cerebral hemispheres and across the pontine tegmentum are chronic white matter ischemic changes. Old cortical-based ischemic infarct cystic encephalomalacia and atrophy in the posterior aspect of the left inferior frontal gyrus is unchanged. Old cortical-based ischemic infarct in the left occipital lobe and left posterior temporal lobe are unchanged. No intra- or extra-axial hemorrhage. No intracranial mass or mass effect. Posterior fossa structures are unremarkable. No hydrocephalus. Basal cisterns are patent. SELLA: Unremarkable. Normal sella turcica, pituitary gland, infundibular stalk, optic chiasm and hypothalamus. AUDITORY SYSTEM: Unremarkable. The internal auditory canals are patent. BONES/JOINTS: Unremarkable. No discrete lytic or blastic abnormalities. SINUSES: Unremarkable as visualized. Clear. MASTOID AIR CELLS: Unremarkable as visualized. Clear. ORBITS: Unremarkable as visualized. Both globes, extraocular muscles, optic nerves and retrobulbar fat appear unremarkable. VASCULATURE: Unremarkable as visualized. Normal flow voids in the major intracranial circulation. MRI/Brain without Contrast IMPRESSION: 1. Small acute ischemic infarct in the right lateral occipitotemporal gyrus. 2. Multifocal old cortical based ischemic infarcts with focal atrophy and encephalomalacia in the left posterior temporal lobe, left occipital lobe and left inferior frontal gyrus. 3. Chronic white matter ischemic changes in both cerebral hemispheres and across the pontine tegmentum. Electronically Signed: Dominick Hardin MD at 13:35 EST ,
--- NOTE | 2022-11-21 02:18 | ECHOD_ITS ---
Reason For Study: TIA/CVA Procedure This was a 2D Doppler, Color Flow transthoracic echocardiogram. The study was technically difficult. Exam performed portable in patient room. Left Ventricle Normal LV size. Based upon the 2D echocardiographic images obtained there appears to be grossly normal left ventricular size, wall motion, and systolic function. The estimated ejection fraction is 65 %. Diastolic function is indeterminate. Right Ventricle Based upon the 2D echocardiographic images obtained there appears to be grossly normal right ventricular size and systolic function. Atria The left atrium is moderately enlarged. The right atrium is mildly enlarged. No doppler evidence for ASD. Bubble contrast study negative for right to left interatrial shunt. Mitral Valve There is no mitral annular calcification. Normal mitral valve. Trivial mitral valve insufficiency. Tricuspid Valve Normal tricuspid valve. Trivial tricuspid valve insufficiency. Right ventricular systolic pressure estimated to be 20 mmHg. Aortic Valve Trisinus/trileaflet aortic valve. Mild focal aortic valve calcification. Pulmonic Valve The pulmonic valve is not well visualized. Mild (1+) pulmonic valve insufficiency. Great Vessels Normal sized aortic root. Pericardium/Pleural No pericardial effusion. Medication Performed a rapid injection of agitated mix of 9 cc saline and 1cc air to assess for atrial septal defect. MMode/2D Measurements & Calculations LVIDd: 3.9 cm IVSd: 2.1 cm Ao root diam: 3.2 cm LVIDs: 2.4 cm LVPWd: 1.7 cm RVDd: 4.8 cm FS: 37.5 % LAV(MOD-bp): 106.0 ml LVAd ap4: 23.9 cm2 SV(MOD-sp4): 44.7 ml LAV(MOD-bp) Indexed: 41.0 ml/m2 LVLd ap4: 6.7 cm LAV(MOD-sp2): 109.9 ml EDV(MOD-sp4): 69.2 ml LAV(MOD-sp4): 103.5 ml EDV(sp4-el): 72.9 ml LVAs ap4: 13.2 cm2 LVLs ap4: 6.0 cm ESV(MOD-sp4): 24.6 ml ESV(sp4-el): 24.7 ml EF(MOD-sp4): 64.5 % EF(sp4-el): 66.1 % SV(sp4-el): 48.2 ml LA A4 area: 31.4 cm2 LA dimension(2D): 6.7 cm RA A4 area: 29.9 cm2 Doppler Measurements & Calculations MV E max leonel: 92.3 cm/sec Ao V2 max: 99.4 cm/sec LV V1 max: 100.4 cm/sec Ao max P.0 mmHg LV V1 max P.1 mmHg Ao V2 mean: 72.5 cm/sec Ao mean P.2 mmHg Ao V2 VTI: 16.8 cm PA V2 max: 78.2 cm/sec PI end-d leonel: 163.2 cm/sec TR max leonel: 207.2 cm/sec TR max P.2 mmHg ECHO/Echo Complete Interpretation Summary The study was technically difficult. Based upon the 2D echocardiographic images obtained there appears to be grossly normal left ventricular size, wall motion, and systolic function. The estimated ejection fraction is 65 %. The left atrium is moderately enlarged. The right atrium is mildly enlarged. Trivial mitral valve insufficiency. Trivial tricuspid valve insufficiency. Mild focal aortic valve calcification. Mild (1+) pulmonic valve insufficiency. Right ventricular systolic pressure estimated to be 20 mmHg. Diastolic function is indeterminate. Bubble contrast study negative for right to left interatrial shunt. Ordering Physician: Jesse Mazariegos Referring Physician: Gregorio Gutiérrez Performed By: Tea Nicholson, RDCS, RVT
[2022-11-21 07:22] LABS: Absolute Lymphocyte Count 1.68 X10^3/uL (0.83-4.51); Absolute Neutrophil Count 4.3 X10^3/uL (2.0-7.7); Basophil# 0.03 X10^3/uL; Basophil% 0.4 % (0-1); Eosinophil# 0.14 X10^3/uL; Hemoglobin 14.3 g/dL (13.0-16.5); Lymphocyte # 1.68 X10^3/ul (0.83-4.51); Lymphocyte % 24.1 % (19-41); Mean Corp Hgb Conc 30.4 g/dL (32-36); Mean Corpuscular Volume 82.2 fL (80-94); Mean Platelet Vol. 12.1 fl (6.2-12.0); Monocyte# 0.81 X10^3/uL; Monocyte% 11.6 % (0-10); NRBC Flagged by Analyzer 0 % (0-5); Neutrophil # 4.29 X10^3/uL (2.7-7.7); Neutrophil % 61.6 % (47-70); Platelet Count 201 K/mm3 (150-450); RBC Distribution Width CV 15.8 % (11.6-14.6); RBC Distribution Width SD 46.8 fl (35.1-43.9); Red Blood Count 5.72 M/mm3 (4.6-6.2)
[2022-11-21 07:40] LABS: Anion Gap 4 (5-15); BUN 11 mg/dL (7-18); BUN/Creat Ratio 13.4 RATIO (10-20); Calcium,Total 8.7 mg/dL (8.5-10.1); Chloride 105 mmol/L (98-107); Cholesterol 205 mg/dL (200); Creatinine, Serum 0.82 mg/dL (0.70-1.30); EST Glomerular Filtration Rate 96 mL/min (>60); Est Glom Filt Rate - Afr Amer 116 mL/min (>60); Estimated Creatinine Clearance 84.93 ml/min; Glucose 126 mg/dL (74-106); High Density Lipoprotein 58 mg/dL; Potassium 3.7 mmol/L (3.5-5.1); Sodium Level 141 mmol/L (136-145); Triglycerides 122 mg/dL; Very Low Density Lipoprotein 24 mg/dL (5-40)
[2022-11-21 07:41] LABS: Bedside Glucose 148 mg/dL (74-106)
[2022-11-21 07:41] LABS: Bedside Glucose 143 mg/dL (74-106)
--- NOTE | 2022-11-21 08:00 | PCM.HOSP.N ---
Hospitalist Note Patient resting comfortably on evaluation, had to be given Ativan to tolerate MRI and was sleepy and did not participate in exam on evaluation. Reported no distress. MRI was positive for stroke, neurology consulted. Echo with bubble study negative for [id number] shunt. Remains in A. fib with slow ventricular response on telemetry, has bradycardia when he is sleeping which improves when he is awake. His home Xarelto was continued on admission. Not on any rate limiting medications, will check TSH
[2022-11-21] MEDS: Polyethylene Glycol 3350 17 GM PACKET PO (09:09)
[2022-11-21] MEDS: Potassium Chloride Oral Tablet 20 MEQ PO (09:10)
[2022-11-21] MEDS: QUEtiapine 100 MG Tablet PO (09:10)
[2022-11-21] MEDS: Rivaroxaban 20 MG Tablet PO (09:10)
[2022-11-21] MEDS: Aspirin 81 MG TAB.CHEW PO (09:10)
[2022-11-21] MEDS: Ezetimibe 10 MG Tablet PO (09:10)
[2022-11-21 09:12] LABS: Hemoglobin A1c 7.5 % (3.8-5.6)
[2022-11-21] MEDS: Furosemide 40 MG Tablet PO (10:12)
--- NOTE | 2022-11-21 11:20 | CASEMGMT ---
Patient is from [facility]. Portia THOMAS
[2022-11-21] MEDS: Insulin Lispro 100 UNIT/ML INSULN.PEN SC (11:35)
[2022-11-21 11:51] LABS: Bedside Glucose 217 mg/dL (74-106)
[2022-11-21] MEDS: LORazepam 2 MG/ML Syringe 1 MG IV (12:37)
--- NOTE | 2022-11-21 13:30 | NURSING ---
Pt unable to participate in NIH at time, pt stating he's too tired. Pt received IV Ativan in MRI.
--- NOTE | 2022-11-21 14:14 | CASEMGMT ---
SALVATORE MONROE note: SALVATORE MONROE spoke w/Dr Gale re: + MRI for acute stroke. Per Dr Gale, neuro c/s to be done and pt will not be medically ready for discharge until at least Wednesday. SALVATORE MONROE spoke w/Portia HAYES. Unsure at this time if pt will be able to return to [facility] @ d/c, or if pt will need to go to a SNF. Dr Gale made aware pt will not be able to discharge until , at the earliest. El[place] ARGUELLON SALVATORE MORNOE
--- NOTE | 2022-11-21 14:19 | TELEMED_ITS ---
[facility] has confirmed receipt of a request for visit. This document confirms receipt of the order initiating the consult. To find the results of the consultation, please view the patient's reports for the scanned Telemed Consult.
[2022-11-21 16:55] LABS: Bedside Glucose 144 mg/dL (74-106)
--- NOTE | 2022-11-21 20:42 | CT_ITS ---
We are attempting to reach an attending provider to discuss findings. An addendum with communication details will be sent when the communication is complete. STUDY: CT HEAD STROKE PROTOCOL W/O CONTRAST INJECTION REASON FOR EXAM: Male, 77 years old. Stroke. RADIATION DOSAGE (If Supplied By Facility): CTDIvol = ( ) mGy, DLP = ( 796.11 ) mGycm TECHNIQUE: Transaxial CT imaging of the brain was performed without administration of intravenous contrast material. Individualized dose optimization techniques were used for this CT. COMPARISON: CT of the brain, November 20, 2022. MRI of the brain, November 21, 2022 FINDINGS: Normal soft tissue structures. Normal calvarium. The There are areas of decreased attenuation within the white matter tracts of the supratentorial brain, consistent with microvascular disease changes. There is remote infarcts of the parietal and left occipital parietal lobes. The small infarcts seen in the right occipitoparietal lobe on the MRI is not clearly identified on the current study. Normal basal ganglia and thalami. Normal brainstem. Normal cerebellum. There is no intracranial hemorrhage. There are no findings of an acute ischemic infarction. Normal visualized paranasal sinuses. CT/STROKE Brain/Head without Cont IMPRESSION: No major interval change when compared to the CT one day earlier. The small right occipitoparietal infarcts seen on MRI earlier today is not appreciated. Electronically Signed: Stan Redding DO at 21:18 EST Reading Location ID and State: [address] [place] [address] Tel [phone], Service support ,
[2022-11-21] MEDS: Nystatin Powder 15gm Bottle 1 APPLIC TOPICAL (22:30)
[2022-11-21 23:45] LABS: Bedside Glucose 191 mg/dL (74-106)
[2022-11-22] VITALS (15 sets, daily range): BP systolic 134–211; BP diastolic 110–128; PULSE 64–99; RESP 20–24; TEMP 36.4–37.2; O2SAT 94–100; BMI 38.5
--- NOTE | 2022-11-22 00:33 | CT_ITS ---
EXAM: CTA Head and Neck W/ Contrast Injection (and W/O Contrast Images if performed) HISTORY: Worsening Stroke TECHNIQUE: CTA Head and Neck W/ Contrast Injection (and W/O Contrast Images if performed) Postcontrast axial images were obtained of the brain and neck. NASCET criteria using the distal ICAs for comparison were used for evaluation of stenoses. 3D reconstructions were reviewed. A radiation dose optimization technique was used for this scan. COMPARISON: MR and CT brain 11/21/2022. LIMITATIONS: None. CAROTID ARTERIES: Normal. ANTERIOR CEREBRAL ARTERIES: Normal. MIDDLE CEREBRAL ARTERIES: Multifocal severe stenoses in the mid to distal right M1 with near complete occlusion. Short segment severe stenosis in the proximal left M1. Severe stenosis at the left MCA bifurcation. POSTERIOR CEREBRAL ARTERIES: Extensive irregularity throughout the bilateral posterior cerebral arteries with near complete occlusion bilaterally and incomplete visualization of the mid to distal portions, right greater than left. BASILAR ARTERY: Short segment severe stenosis in the basilar artery.. VERTEBRAL ARTERIES: Right vertebral artery predominantly terminates in the right PICA with a portion of the V4 segment which is occluded. VENOUS STRUCTURES: Normal. OTHER: None. AORTIC ARCH: Normal. CAROTID ARTERIES: Normal. VERTEBRAL ARTERIES: Scattered mild to moderate stenoses in the bilateral vertebral arteries, left greater than right.. OTHER ARTERIES: Normal. VENOUS STRUCTURES: Normal. BONES/SOFT TISSUES: Sclerotic changes in the T2 vertebral body, similar compared to the prior. OTHER: Mildly enlarged mediastinal lymph nodes. Bilateral thyroid nodules and coarse calcifications measuring up to 17 mm in the left thyroid. CT/STROKE CTA Head AND Neck W/Con IMPRESSION: 1. Extensive irregularity throughout the bilateral posterior cerebral arteries which are incompletely visualized and may be occluded. 2. Occluded right V4 segment. 3. Multifocal severe stenoses in the bilateral M1 and at the left MCA bifurcation as above. 4. 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 5. Additional chronic changes as above. 6. Thyroid nodularity, to be further characterized with nonemergent thyroid ultrasound. Findings discussed with DELMA Matthews via phone at 10:33 PM PST on 11/21/2022. N.B. : The above Results were Read Back by Jerel Baires MD to Dr.Joseph Yair MD, and understanding confirmed on 11/22/2022 01:38:10 (ET). Electronically Signed: Jerel Baires MD at 1:44 EST ,
[2022-11-22 07:25] LABS: Bedside Glucose 162 mg/dL (74-106)
[2022-11-22 07:36] LABS: Absolute Lymphocyte Count 1.53 X10^3/uL (0.83-4.51); Absolute Neutrophil Count 4.1 X10^3/uL (2.0-7.7); Basophil# 0.02 X10^3/uL; Basophil% 0.3 % (0-1); Eosinophil# 0.18 X10^3/uL; Eosinophils% 2.8 % (0-5); Hematocrit 49.2 % (40-54); Lymphocyte # 1.53 X10^3/ul (0.83-4.51); Lymphocyte % 23.6 % (19-41); Mean Corp Hgb Conc 30.5 g/dL (32-36); Mean Corpuscular Hgb 25.1 pg (27.0-32.0); Mean Corpuscular Volume 82.4 fL (80-94); Mean Platelet Vol. 12.4 fl (6.2-12.0); Monocyte# 0.65 X10^3/uL; NRBC Flagged by Analyzer 0 % (0-5); Neutrophil # 4.06 X10^3/uL (2.7-7.7); Neutrophil % 62.8 % (47-70); Platelet Count 190 K/mm3 (150-450); RBC Distribution Width CV 16.3 % (11.6-14.6); RBC Distribution Width SD 47.3 fl (35.1-43.9); Red Blood Count 5.97 M/mm3 (4.6-6.2); White Blood Count 6.5 K/mm3 (4.4-11.0)
[2022-11-22 07:55] LABS: ALB/GLOB Ratio 0.6 RATIO (0.9-2.4); AST(SGOT) 20 U/L (15-37); Alanine Aminotransfer ALT/SGPT 32 U/L (16-61); Albumin, Serum 2.9 g/dL (3.2-5.0); Alkaline Phosphatase 141 U/L (45-117); Anion Gap 4 (5-15); BUN 13 mg/dL (7-18); BUN/Creat Ratio 15.1 RATIO (10-20); Calcium,Total 9.2 mg/dL (8.5-10.1); Chloride 103 mmol/L (98-107); Creatinine, Serum 0.86 mg/dL (0.70-1.30); EST Glomerular Filtration Rate 91 mL/min (>60); Est Glom Filt Rate - Afr Amer 110 mL/min (>60); Estimated Creatinine Clearance 80.98 ml/min; Globulin 4.5 g/dL (2.2-4.2); Glucose 162 mg/dL (74-106); Potassium 4.1 mmol/L (3.5-5.1); Protein, Total 7.4 g/dL (6.4-8.2); Sodium Level 140 mmol/L (136-145); Thyroid Stim Hormone (TSH) 0.99 uIU/mL (0.358-3.74)
--- NOTE | 2022-11-22 10:24 | PCM.PN.HOSP ---
Subjective Subjective Laying in bed, wakes up reports that he does still have problems with his arm but it does not hurt, said sometimes he has right leg pain, denied having problems with his breathing at this time. Objective Data Objective Data Vital Signs: Vital Signs Temp Pulse Resp BP Pulse Ox O2 Del Method O2 Flow Rate 98.0 F 80 24 H 184/118 H 94 Room Air 2 11/22/22 07:48 11/22/22 07:48 11/22/22 07:48 11/22/22 07:48 11/22/22 07:48 11/22/22 07:55 11/22/22 04:30 Oxygen Flow Rate (L/min) 2 Oxygen Delivery Method Room Air Weight: 136 kg Body Mass Index (BMI) 38.5 Intake & Output: Intake and Output for Last 24 Hours 11/20/22 11/21/22 11/22/22 23:59 23:59 23:59 Intake Total 0 / 0 Output Total 200 / 200 1500 / 1500 Balance -200 / -200 -1500 / -1500 Lab / Micro Data Result Diagrams: 11/22/22 06:44 11/22/22 06:44 Labs: Laboratory Results - last 24 hr 11/21/22 11:30: POC Glucose 217 H 11/21/22 15:41: POC Glucose 144 H 11/21/22 22:03: POC Glucose 191 H 11/22/22 06:36: POC Glucose 162 H 11/22/22 06:44: WBC 6.5, RBC 5.97, Hgb 15.0, Hct 49.2, MCV 82.4, MCH 25.1 L, MCHC 30.5 L, RDW Std Deviation 47.3 H, RDW Coeff of Roberth 16.3 H, Plt Count 190, MPV 12.4 H, Immature Gran % (Auto) 0.500, Neut % (Auto) 62.8, Lymph % (Auto) 23.6, [place] % (Auto) 10.0, Eos % (Auto) 2.8, Baso % (Auto) 0.3, Absolute Neuts (auto) 4.1, Absolute Lymphs (auto) 1.53, Nucleated RBC % 0 11/22/22 06:44: Sodium 140, Potassium 4.1, Chloride 103, Carbon Dioxide 33.0 H, Anion Gap 4 L, BUN 13, Creatinine 0.86, Estim Creat Clear Calc 80.98, Est GFR (MDRD) Af Amer 110, Est GFR (MDRD) Non-Af 91, BUN/Creatinine Ratio 15.1, Glucose 162 H, Calcium 9.2, Total Bilirubin 0.50, AST 20, ALT 32, Alkaline Phosphatase 141 H, Total Protein 7.4, Albumin 2.9 L, Globulin 4.5 H, Albumin/Globulin Ratio 0.6 L, TSH 0.99 Radiography Diagnostic Testing: Radiology Impression Brain MRI 11/21/22 02:18 IMPRESSION: 1. Small acute ischemic infarct in the right lateral occipitotemporal gyrus. 2. Multifocal old cortical based ischemic infarcts with focal atrophy and encephalomalacia in the left posterior temporal lobe, left occipital lobe and left inferior frontal gyrus. 3. Chronic white matter ischemic changes in both cerebral hemispheres and across the pontine tegmentum. Electronically Signed: Dominick Hardin MD at 13:35 EST , ADDENDUM: 11/21/22 1403 IMPRESSION: 1. Small acute ischemic infarct in the right lateral occipitotemporal gyrus. 2. Multifocal old cortical based ischemic infarcts with focal atrophy and encephalomalacia in the left posterior temporal lobe, left occipital lobe and left inferior frontal gyrus. 3. Chronic white matter ischemic changes in both cerebral hemispheres and across the pontine tegmentum. N.B. : The above Results were Read Back by Dominick Hardin MD to Carla Washington RN, and understanding confirmed on 11/21/2022 13:56:57 (ET). Electronically Signed: Dominick Hardin MD at 13:35 EST , Echocardiogram 11/21/22 02:18 Interpretation Summary The study was technically difficult. Based upon the 2D echocardiographic images obtained there appears to be grossly normal left ventricular size, wall motion, and systolic function. The estimated ejection fraction is 65 %. The left atrium is moderately enlarged. The right atrium is mildly enlarged. Trivial mitral valve insufficiency. Trivial tricuspid valve insufficiency. Mild focal aortic valve calcification. Mild (1+) pulmonic valve insufficiency. Right ventricular systolic pressure estimated to be 20 mmHg. Diastolic function is indeterminate. Bubble contrast study negative for right to left interatrial shunt. Ordering Physician: Jesse Mazariegos Referring Physician: Gregorio Gutiérrez Performed By: Tea Nicholson, RDCS, RVT Brain CT 11/21/22 20:42 IMPRESSION: No major interval change when compared to the CT one day earlier. The small right occipitoparietal infarcts seen on MRI earlier today is not appreciated. Electronically Signed: Stan Redding DO at 21:18 EST Reading Location ID and State: [employer] / [place] Tel [phone], Service support , ADDENDUM: 11/21/222128 IMPRESSION: No major interval change when compared to the CT one day earlier. The small right occipitoparietal infarcts seen on MRI earlier today is not appreciated. N.B. : The above Results were Read Back by Stan Redding DO to Lizbet Quevedo RN, and understanding confirmed on 11/21/2022 21:22:34 (ET). Electronically Signed: Stan Redding DO at 21:18 EST Reading Location ID and State: [employer] / [employer] Tel [phone], Service support , Head/Neck CTA 11/22/22 00:33 IMPRESSION: 1. Extensive irregularity throughout the bilateral posterior cerebral arteries which are incompletely visualized and may be occluded. 2. Occluded right V4 segment. 3. Multifocal severe stenoses in the bilateral M1 and at the left MCA bifurcation as above. 4. 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 5. Additional chronic changes as above. 6. Thyroid nodularity, to be further characterized with nonemergent thyroid ultrasound. Findings discussed with JESSE Matthews via phone at 10:33 PM PST on 11/21/2022. N.B. : The above Results were Read Back by Jerel Baires MD to Dr.Joseph Yair MD, and understanding confirmed on 11/22/2022 01:38:10 (ET). Electronically Signed: Jerel Baires MD at 1:44 EST , ADDENDUM: 11/22/22 0151 IMPRESSION: 1. Extensive irregularity throughout the bilateral posterior cerebral arteries which are incompletely visualized and may be occluded. 2. Occluded right V4 segment. 3. Multifocal severe stenoses in the bilateral M1 and at the left MCA bifurcation as above. 4. 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 5. Additional chronic changes as above. 6. Thyroid nodularity, to be further characterized with nonemergent thyroid ultrasound. Findings discussed with JESSE Matthews via phone at 10:33 PM PST on 11/21/2022. N.B. : The above Results were Read Back by Jerel Baires MD to Dr.Joseph aYir MD, and understanding confirmed on 11/22/2022 01:38:10 (ET). Electronically Signed: Jerel Baires MD at 1:44 EST , Physical Exam Const Constitutional Narrative: Laying in bed, difficulty answering orientation questions HEENT head/scalp atraumatic and moist oral mucous membranes Eyes Eyes Narrative: Opens eyes to voice Neck supple Resp Resp Narrative: Appears to have slight increased work of breathing Cardio Cardio Narrative: Regular rate GI soft to palpation, non-tender and non-distended Extremity Extremity Narrative: Appears to have chronic changes in lower extremities Neuro Neuro Narrative: Difficulty following commands, sleep garbled and repeated speech with mild left facial asymmetry, not moving left arm, minimal movement in left leg but moving right upper extremity well Psych Psych Narrative: Attempts to be cooperative Assessment & Plan Assessment/Plan (1) CVA (cerebral vascular accident): PLAN: Plan #Right MCA stroke Seen on MRI, additionally has bilateral M1 stenosis and bilateral 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 at this time And this will administer aspirin rectally and transition Xarelto to heparin Echo with negative bubble study Resume statin when feasible Lipid panel obtained, LDL 123 #Mild tachypnea Patient appeared anxious and somewhat tachypneic Denied problems with his breathing Will obtain chest x-ray, is taking Lasix at home and has been n.p.o. so his not receive these Also appears he should be on CPAP/BiPAP nightly, bicarb up slightly today which may be why BiPAP ordered and dose of Lasix IV #Schizophrenia Is on 100 mg of Seroquel, this was listed in his home med list is daily though suspect it was supposed to be nightly, may be why he was excessively tired today though unclear what his baseline is Attempted to call brother x2 with no answer Also on gabapentin 100 In history he reports seizure disorder though do not see that he is on anything other than 100 of Neurontin which would not be adequate for seizure prophylaxis #PAD Aspirin rectally, resume statin when able to tolerate p.o. #hx of DVT and PE Has not been able to take oral Xarelto, will start on heparin drip #Type 2 diabetes mellitus Presently n.p.o. Of n.p.o. for prolonged period of time and functional status still improves may consider PEG tube Sliding scale insulin A1c 7.5 #Obesity Appears he used to be on home CPAP, unclear if he still is but has a standing diagnosis of JOVAN Will put for BiPAP nightly #DVT ppx: On heparin drip Eloisa Gale MD Charges/Coding Visit Charges Inpatient E&M: 30205 Subs Hosp L2
[2022-11-22 16:16] LABS: Bedside Glucose 177 mg/dL (74-106)
[2022-11-22 16:50] LABS: Bedside Glucose 165 mg/dL (74-106)
--- NOTE | 2022-11-22 17:56 | RAD_ITS ---
INDICATION: increased WOB EXAMINATION/TECHNIQUE: X-RAY - XR Chest 1 View COMPARISON: 11/20/2022, 02/02/2016. FINDINGS: LINES/DEVICES: None. LUNGS: No consolidation, edema or effusion. No pneumothorax. MEDIASTINUM AND CARDIOVASCULAR STRUCTURES: Mild cardiac enlargement. Central airways and mediastinal contour are unremarkable. BONES AND SOFT TISSUES: Loose bodies in the right shoulder joint versus heterotopic calcification. RAD/Chest 1 View (Portable) IMPRESSION: No acute cardiopulmonary disease. Electronically Signed: Brenda Mcnally MD at 22:06 EST Reading Location ID and State: [id number] / Tel , Service support ,
[2022-11-22] MEDS: Furosemide 20 MG/2 ML VIAL IV (19:00)
[2022-11-22] MEDS: 0.9% Saline Lock 10 ML Syringe IV (19:00)
[2022-11-22 19:22] LABS: International Normalized Ratio 1.2; Partial Thromboplast Time 27.4 Seconds (24.1-36.2); Prothrombin Time (Protime)PT. 14.4 SECONDS (11.7-14.9)
[2022-11-22] MEDS: Nystatin Powder 15gm Bottle 1 APPLIC TOPICAL (20:07)
[2022-11-22] MEDS: HEPARIN/D5w 25,000 UNITS 25,000 UNITS/250 ML IV.SOLN. 17 UNITS CONT INF (20:08)
[2022-11-22] MEDS: Aspirin 300 MG Suppository RC (20:08)
[2022-11-22 22:30] LABS: Bedside Glucose 174 mg/dL (74-106)
--- NOTE | 2022-11-22 23:19 | NURSING ---
Was told by respiratory patient refused to wear BIPAP
--- NOTE | 2022-11-22 23:33 | CPS ---
[2237] Pt. politely refused use of CPAP/BiPAP at this time. Pt.'s oxygen saturations are appropriate at this time. Pt. claims he used to wear CPAP, but he hasn't worn one in quite some time.
[2022-11-23] VITALS (16 sets, daily range): BP systolic 140–197; BP diastolic 97–135; PULSE 81–100; RESP 18–24; TEMP 36.3–38.8; O2SAT 95–98
[2022-11-23 02:48] LABS: Absolute Lymphocyte Count 0.92 X10^3/uL (0.83-4.51); Absolute Neutrophil Count 11.1 X10^3/uL (2.0-7.7); Basophil# 0.03 X10^3/uL; Basophil% 0.2 % (0-1); Eosinophil# 0.03 X10^3/uL; Eosinophils% 0.2 % (0-5); Hematocrit 49.6 % (40-54); Hemoglobin 15.3 g/dL (13.0-16.5); Lymphocyte # 0.92 X10^3/ul (0.83-4.51); Lymphocyte % 7.1 % (19-41); Mean Corp Hgb Conc 30.8 g/dL (32-36); Mean Corpuscular Volume 80.9 fL (80-94); Mean Platelet Vol. 11.6 fl (6.2-12.0); Monocyte# 0.81 X10^3/uL; Monocyte% 6.2 % (0-10); NRBC Flagged by Analyzer 0 % (0-5); Neutrophil # 11.12 X10^3/uL (2.7-7.7); Neutrophil % 85.8 % (47-70); Platelet Count 227 K/mm3 (150-450); RBC Distribution Width CV 16.2 % (11.6-14.6); RBC Distribution Width SD 45.7 fl (35.1-43.9); Red Blood Count 6.13 M/mm3 (4.6-6.2)
[2022-11-23 02:59] LABS: Partial Thromboplast Time 47.3 Seconds (24.1-36.2)
[2022-11-23] MEDS: Heparin Injection (Vial) 5,000 UNIT/ML VIAL IV ×2 (03:24→11:02)
[2022-11-23 03:42] LABS: ALB/GLOB Ratio 0.6 RATIO (0.9-2.4); AST(SGOT) 20 U/L (15-37); Alanine Aminotransfer ALT/SGPT 32 U/L (16-61); Albumin, Serum 2.8 g/dL (3.2-5.0); Alkaline Phosphatase 148 U/L (45-117); Anion Gap 8 (5-15); BUN 11 mg/dL (7-18); BUN/Creat Ratio 11.7 RATIO (10-20); Calcium,Total 9.2 mg/dL (8.5-10.1); Chloride 101 mmol/L (98-107); Creatinine, Serum 0.94 mg/dL (0.70-1.30); EST Glomerular Filtration Rate 82 mL/min (>60); Est Glom Filt Rate - Afr Amer 99 mL/min (>60); Estimated Creatinine Clearance 74.09 ml/min; Globulin 4.9 g/dL (2.2-4.2); Glucose 202 mg/dL (74-106); Protein, Total 7.7 g/dL (6.4-8.2); Sodium Level 138 mmol/L (136-145)
[2022-11-23 06:26] LABS: Bedside Glucose 224 mg/dL (74-106)
[2022-11-23] MEDS: hydrALAZINE 20 MG/ML Vial 5 MG IV (08:52)
[2022-11-23] MEDS: 0.9% Saline Lock 10 ML Syringe IV ×2 (08:52→20:31)
[2022-11-23 10:33] LABS: Partial Thromboplast Time 37.5 Seconds (24.1-36.2)
[2022-11-23] MEDS: HEPARIN/D5w 25,000 UNITS 25,000 UNITS/250 ML IV.SOLN. 20 UNITS CONT INF ×2 (11:00→23:10)
[2022-11-23] MEDS: Aspirin 300 MG Suppository RC (11:25)
[2022-11-23] MEDS: Nystatin Powder 15gm Bottle 1 APPLIC TOPICAL ×2 (11:35→20:30)
[2022-11-23] MEDS: Potassium Chloride Oral Tablet 20 MEQ PO (11:36)
[2022-11-23] MEDS: Furosemide 40 MG Tablet PO (11:36)
[2022-11-23] MEDS: Furosemide 20 MG Tablet PO (11:36)
[2022-11-23] MEDS: Ezetimibe 10 MG Tablet PO (11:36)
[2022-11-23] MEDS: Insulin Lispro 100 UNIT/ML INSULN.PEN SC ×2 (12:12→16:06)
[2022-11-23 12:15] LABS: Bedside Glucose 227 mg/dL (74-106)
[2022-11-23] MEDS: Labetalol (Prefilled) 20 MG/4 ML IV ×2 (14:22→16:07)
[2022-11-23] MEDS: Ipratropium/Albuterol Sulfate 3 ML AMPUL.NEB INHALATION (15:09)
[2022-11-23 16:31] LABS: Bedside Glucose 204 mg/dL (74-106)
[2022-11-23] MEDS: Acetaminophen 650 MG Suppository RC (16:40)
[2022-11-23] MEDS: 0.45% Normal Saline 1,000 ML 75 ML IV (16:51)
[2022-11-23 17:33] LABS: Partial Thromboplast Time 76.4 Seconds (24.1-36.2)
--- NOTE | 2022-11-23 17:53 | PCM.PN.HOSP ---
Subjective Subjective Follow-up on acute right MCA stroke: Patient was seen and examined. He is aphasic, unable to sit upright, unable to interact. He has been having fevers likely been silently aspirating as he had swallowing difficulty. Blood pressures have also been elevated; given multiple prns Objective Data Objective Data Vital Signs: Vital Signs Temp Pulse Resp BP Pulse Ox O2 Del Method O2 Flow Rate 101.4 F H 95 24 H 176/135 H 98 Nasal Cannula 3 11/23/22 16:03 11/23/22 16:03 11/23/22 15:09 11/23/22 16:03 11/23/22 14:45 11/23/22 14:45 11/23/22 14:45 Oxygen Flow Rate (L/min) 3 Oxygen Delivery Method Nasal Cannula Weight: 136 kg Body Mass Index (BMI) 38.5 Intake & Output: Intake and Output for Last 24 Hours 11/21/22 11/22/22 11/23/22 23:59 23:59 23:59 Intake Total 0 / 0 250.00 / 250.00 Output Total 200 / 200 2425 / 3225 1150 / 1150 Balance -200 / -200 -2425 / -3225 -900.00 / -900.00 Lab / Micro Data Result Diagrams: 11/23/22 02:41 11/23/22 02:41 Labs: Laboratory Results - last 24 hr 11/22/22 19:00: PT 14.4, INR 1.2, APTT 27.4 11/22/22 20:06: POC Glucose 174 H 11/23/22 02:41: WBC 13.0 H, RBC 6.13, Hgb 15.3, Hct 49.6, MCV 80.9, MCH 25.0 L, MCHC 30.8 L, RDW Std Deviation 45.7 H, RDW Coeff of Roberth 16.2 H, Plt Count 227, MPV 11.6, Immature Gran % (Auto) 0.500, Neut % (Auto) 85.8 H, Lymph % (Auto) 7.1 L, [place] % (Auto) 6.2, Eos % (Auto) 0.2, Baso % (Auto) 0.2, Absolute Neuts (auto) 11.1 H, Absolute Lymphs (auto) 0.92, Nucleated RBC % 0 11/23/22 02:41: Sodium 138, Potassium 4.0, Chloride 101, Carbon Dioxide 29.0, Anion Gap 8, BUN 11, Creatinine 0.94, Estim Creat Clear Calc 74.09, Est GFR (MDRD) Af Amer 99, Est GFR (MDRD) Non-Af 82, BUN/Creatinine Ratio 11.7, Glucose 202 H, Calcium 9.2, Total Bilirubin 0.80, AST 20, ALT 32, Alkaline Phosphatase 148 H, Total Protein 7.7, Albumin 2.8 L, Globulin 4.9 H, Albumin/Globulin Ratio 0.6 L 11/23/22 02:41: APTT 47.3 H 11/23/22 06:00: POC Glucose 224 H 11/23/22 09:32: APTT 37.5 H 11/23/22 11:57: POC Glucose 227 H 11/23/22 16:05: POC Glucose 204 H 11/23/22 17:09: APTT 76.4 H Radiography Diagnostic Testing: Radiology Impression Chest X-Ray 11/22/22 17:56 IMPRESSION: No acute cardiopulmonary disease. Electronically Signed: Brenda Mcnally MD at 22:06 EST Reading Location ID and State: [id number] / Tel , Service support , Physical Exam Narrative Physical exam: General: Alert oriented to self, aphasic HEENT: Atraumatic Oral: Moist Mucosa Neck: Supple Lungs: Clear to auscultation Cardiovascular: HS I+II, regular, no murmurs Abdomen: Bowel Sounds Present, Soft, Non Tender Extremities: No edema Skin: No rashes, No breakdown Neurological: Dense left-sided hemiplegia Psych/Mental Status: Appropriate Assessment & Plan Assessment/Plan (1) CVA (cerebral vascular accident): PLAN: Plan 1. 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 Probable aspiration pneumonia, kept n.p.o., speech therapy consulted We will start on IV Zosyn 3. PAD, h/o DVT/PE, continue on aspirin rectal, heparin drip 4. Type II DM, HgbA1c 7.5, continue with blood glucose checks and ISS 5. Obesity, BMI 38.5 6. Schizophrenia, on Seroquel, but patient is unable to swallow 7. DVT PPx- Heparin drip Charges/Coding Visit Charges Inpatient E&M: 42500 Subs Hosp L2
--- NOTE | 2022-11-23 18:48 | NURSING ---
Dr Young updated on pt temp 101.9 after given rectal tylenol, she states she will go to bedside and talk to POA of pt. States to apply cool compresses on pt- this nurse does so. Will continue to monitor
[2022-11-23 22:26] LABS: Bedside Glucose 221 mg/dL (74-106)
[2022-11-24] VITALS (10 sets, daily range): BP systolic 127–185; BP diastolic 97–129; PULSE 70–92; RESP 18–24; TEMP 36.7–36.9; O2SAT 93–96
[2022-11-24 00:29] LABS: Partial Thromboplast Time 99.8 Seconds (24.1-36.2)
[2022-11-24] MEDS: 0.9% Saline Lock 10 ML Syringe IV ×3 (06:06→21:22)
[2022-11-24] MEDS: Labetalol (Prefilled) 20 MG/4 ML IV ×2 (06:11→13:58)
[2022-11-24 07:26] LABS: Bedside Glucose 183 mg/dL (74-106)
--- NOTE | 2022-11-24 07:26 | DCINST_ITS ---
Discharge Instructions Diet Discharge Diet: No restrictions Activity Discharge Activity: Return to Normal Activity Follow Up Care Test Results: Test results from this visit will be discussed in further detail at your follow- up appointment, if applicable. Discharge Plan Admission Admit Date/Time: 11/21/22 14:10 Attending Provider: Charo Young Primary Care Provider: Gregorio Gutiérrez Consulting Providers: Jesse Mazariegos ; Eloisa Gale Discharge Orders/Prescriptions Prescriptions: No Action furosemide 40 MG tablet 40 mg PO BID Label Comments: water pill potassium chloride [Klor-Con M20] 20 MEQ tablet 20 meq PO DAILY Label Comments: supplement amlodipine 10 MG tablet 10 mg PO DAILY Label Comments: blood pressure metformin 500 MG tablet 1,000 mg PO BID ezetimibe 10 MG tablet 10 mg PO DAILY rivaroxaban 20 MG tablet 20 mg PO DAILY lisinopril 40 MG tablet 40 mg PO DAILY glimepiride 4 MG tablet 4 mg PO DAILY@0800 0RF insulin glargine [Lantus U-100 Insulin] 100 unit/mL solution SUBCUT metoprolol succinate 100 mg tablet extended release 24 hr 100 mg PO DAILY quetiapine 100 mg tablet 100 mg DAILY ergocalciferol (vitamin D2) 1,250 mcg (50,000 unit) capsule 1,250 mcg PO QWEEK fluticasone propionate [Flonase Allergy Relief] 50 mcg/actuation spray,suspension 50 mcg INTRANASAL PRN (Reason: Nasal Congestion) Rx Instructions: 2 sprays acetaminophen 500 mg TID nystatin 100,000 unit/gram powder 1 applic topical BID 10 Days Qty: 60 0RF furosemide [Lasix] 40 mg tablet 20 mg PO BID gabapentin 100 mg Capsule 100 mg PO QHS montelukast 10 mg Tablet 10 mg PO QHS albuterol 90 mcg/actuation Aerosol INHALATION polyethylene glycol 3350 [Miralax] 17 gram Powder In Packet 17 g PO DAILY Referrals / Follow Up: Gregorio Gutiérrez MD [Primary Care Provider] - Disposition Disposition (needs filled in before D/C Order can be placed): Hospice in Medical Facility
--- NOTE | 2022-11-24 07:29 | PCM.DC.SUM ---
Providers Date of Admission: 11/21/22 Date of Discharge: 11/25/22 Primary Care Physician: Dr. Gregorio Gutiérrez MD Reason For Visit: TIA Diagnosis Discharge Diagnosis (1) CVA (cerebral vascular accident): Status: Acute Code(s): I63.9 - Cerebral infarction, unspecified Plan 1. Acute right MCA stroke, severe, with dense left-sided hemiplegia 2. Probable aspiration pneumonia 3. PAD, h/o DVT/PE 4. Type II DM 5. Obesity, BMI 38.5 6. Schizophrenia Medications at Discharge Home Medications amlodipine 10 mg tablet 10 mg PO DAILY BP 02/02/16 furosemide 40 mg tablet 40 mg PO BID 02/02/16 potassium chloride 20 mEq tablet,extended release(part/cryst) (Klor-Con M) 20 meq PO DAILY 02/02/16 ezetimibe 10 mg tablet 10 mg PO DAILY 09/10/20 metformin 500 mg tablet 1,000 mg PO BID DM 09/10/20 lisinopril 40 mg tablet 40 mg PO DAILY BP 03/14/21 rivaroxaban 20 mg tablet 20 mg PO DAILY 03/14/21 glimepiride 4 mg tablet 4 mg PO DAILY@0800 03/17/21 acetaminophen 500 mg TID 10/09/21 ergocalciferol (vitamin D2) 1,250 mcg (50,000 unit) capsule 1,250 mcg PO QWEEK 10/09/21 fluticasone propionate 50 mcg/actuation nasal spray,suspension (Flonase Allergy Relief) 50 mcg intranasal PRN Nasal Congestion 10/09/21 insulin glargine 100 unit/mL subcutaneous solution (Lantus U-100 Insulin) subcut 10/09/21 metoprolol succinate 100 mg tablet,extended release 24 hr 100 mg PO DAILY 10/09/21 nystatin 100,000 unit/gram topical powder 1 applic topical BID 10 days #60 grams 10/09/21 quetiapine 100 mg tablet 100 mg DAILY 10/09/21 albuterol 90 mcg/actuation aerosol inhaler mcg inhalation 11/21/22 furosemide 40 mg tablet (Lasix) 20 mg PO BID 11/21/22 gabapentin 100 mg capsule 100 mg PO QHS 11/21/22 montelukast 10 mg tablet 10 mg PO QHS 11/21/22 polyethylene glycol 3350 17 gram oral powder packet (Miralax) 17 g PO DAILY 11/21/22 Hospital Course Procedures None Summary of Care Provided Minutes Spent on Discharge: 35 Hospital Course: 77-year-old male with past medical history of primary schizophrenia, psychosis, PAD, type II DM, hypertension, resident in a care home who comes in with left-sided weakness. Patient was said to be unable to move his left side. In the emergency room, he was agitated and did require Ativan to calm him down to get CT of the brain. CT of the brain showed remote infarcts in the hospital parietal region. CTA of the head showed extensive irregularities throughout the bilateral posterior cerebral arteries, occluded right V4 segment, multifocal severe stenosis in the bilateral M1 and left MCA bifurcation, severe stenosis in the basilar artery. He was admitted to the progressive care unit and managed as acute stroke. MRI of the brain showed small acute ischemic infarct in the right lateral occipitotemporal gyrus, multifocal old cortical-based ischemic infarct with focal atrophy and encephalomalacia in the left posterior temporal lobe, left occipital lobe, left inferior frontal gyrus. Patient was managed on aspirin, Xarelto, atorvastatin. 2D echo was negative for PFO. Patient was tachypneic throughout his hospital stay, he failed his swallow evaluation multiple times. Patient was started on IV antibiotics for aspiration pneumonitis. Patient was also progressively very lethargic. Repeat CT of the brain on 11/24/2022 showed new right basal ganglia infarct. Discussed this extensively with his brother with her POA, will agree to patient's overall prognosis was very poor. Hospice was recommended. Patient did not qualify for inpatient hospice facility. He was discharged to [facility] with hospice. Physical Exam Narrative Physical exam: General: Alert oriented to self, aphasic HEENT: Atraumatic Oral: Moist Mucosa Neck: Supple Lungs: Clear to auscultation Cardiovascular: HS I+II, regular, no murmurs Abdomen: Bowel Sounds Present, Soft, Non Tender Extremities: No edema Skin: No rashes, No breakdown Neurological: Dense left-sided hemiplegia Psych/Mental Status: Appropriate Weight / BMI Weight Weight: 136 kg Body Mass Index (BMI) 38.5 ABG / Lab / Microbiology Data Result Diagrams: 11/23/22 02:41 11/23/22 02:41 Laboratory: Laboratory Results - last 24 hr 11/23/22 09:32: APTT 37.5 H 11/23/22 11:57: POC Glucose 227 H 11/23/22 16:05: POC Glucose 204 H 11/23/22 17:09: APTT 76.4 H 11/23/22 20:26: POC Glucose 221 H 11/23/22 23:50: APTT 99.8 H* 11/24/22 06:14: POC Glucose 183 H D/C Instructions Discharge Diet: No restrictions Meaningful Use Info Meaningful Use Diagnoses (Choose all that apply): None applicable Discharge Plan Admission Admit Date/Time: 11/21/22 14:10 Primary Reason for Your Visit: Acute CVA Attending Provider: Charo Young Primary Care Provider: Gregorio Gutiérrez Consulting Providers: Jesse Mazariegos ; Eloisa Gale Discharge Orders/Prescriptions Prescriptions: No Action furosemide 40 MG tablet 40 mg PO BID Label Comments: water pill potassium chloride [Klor-Con M20] 20 MEQ tablet 20 meq PO DAILY Label Comments: supplement amlodipine 10 MG tablet 10 mg PO DAILY Label Comments: blood pressure metformin 500 MG tablet 1,000 mg PO BID ezetimibe 10 MG tablet 10 mg PO DAILY rivaroxaban 20 MG tablet 20 mg PO DAILY lisinopril 40 MG tablet 40 mg PO DAILY glimepiride 4 MG tablet 4 mg PO DAILY@0800 0RF insulin glargine [Lantus U-100 Insulin] 100 unit/mL solution SUBCUT metoprolol succinate 100 mg tablet extended release 24 hr 100 mg PO DAILY quetiapine 100 mg tablet 100 mg DAILY ergocalciferol (vitamin D2) 1,250 mcg (50,000 unit) capsule 1,250 mcg PO QWEEK fluticasone propionate [Flonase Allergy Relief] 50 mcg/actuation spray,suspension 50 mcg INTRANASAL PRN (Reason: Nasal Congestion) Rx Instructions: 2 sprays acetaminophen 500 mg TID nystatin 100,000 unit/gram powder 1 applic topical BID 10 Days Qty: 60 0RF furosemide [Lasix] 40 mg tablet 20 mg PO BID gabapentin 100 mg Capsule 100 mg PO QHS montelukast 10 mg Tablet 10 mg PO QHS albuterol 90 mcg/actuation Aerosol INHALATION polyethylene glycol 3350 [Miralax] 17 gram Powder In Packet 17 g PO DAILY Referrals / Follow Up: Gregorio Gutiérrez MD [Primary Care Provider] - Disposition Disposition (needs filled in before D/C Order can be placed): Hospice in Home Charges/Coding Visit Charges Inpatient E&M: 80553 Disch Hosp >30min
[2022-11-24 08:26] LABS: Partial Thromboplast Time 65.8 Seconds (24.1-36.2)
--- NOTE | 2022-11-24 08:26 | CT_ITS ---
We are attempting to reach an attending provider to discuss findings. An addendum with communication details will be sent when the communication is complete. EXAM: CT HEAD WITHOUT INTRAVENOUS CONTRAST CLINICAL INDICATION: Worsening mentation TECHNIQUE: Multiple axial images were obtained of the head without intravenous contrast. This CT exam was performed using one or more of the following dose reduction techniques: automated exposure control, adjustment of the mA and/or kV according to patient size, and/or use of iterative reconstruction technique. This report was created using [employer] report generation technology. COMPARISON: MRI brain November 21, 2022, CT Head dated 11/21/2022 FINDINGS: BRAIN AND EXTRA-AXIAL SPACES: Diffuse hypodensity of the right basal ganglia now present consistent with acute infarct. Lesion associated with moderate mass effect compressing the adjacent right lateral ventricle. Old cortical infarcts involving the left frontal and left occipital lobes again seen. Areas of diminished white matter density noted within both cerebral hemispheres suggestive of chronic microvascular change. No intra- or extra-axial hemorrhage. Posterior fossa structures are unremarkable. No hydrocephalus. Basal cisterns are patent. BONES/JOINTS: Normal. No discrete lytic or blastic abnormalities. SINUSES: Unremarkable as visualized. No acute sinusitis. MASTOID AIR CELLS: Normal. Clear. ORBITS: Visualized globes, extraocular muscles, optic nerves and retrobulbar fat appear unremarkable. CT/Brain/Head without Contrast IMPRESSION: Acute right basal ganglion infarct. Electronically Signed: Jamir Goldman MD at 12:37 EST ,
[2022-11-24] MEDS: Metoprolol(XL)Succ 100 MG Tablet PO (09:55)
[2022-11-24] MEDS: Nystatin Powder 15gm Bottle 1 APPLIC TOPICAL ×2 (09:55→21:02)
[2022-11-24] MEDS: Ezetimibe 10 MG Tablet PO (09:55)
[2022-11-24] MEDS: amLODIPine 10 MG Tablet PO ×2 (09:56→09:57)
[2022-11-24] MEDS: Potassium Chloride Oral Tablet 20 MEQ PO (09:56)
[2022-11-24] MEDS: Insulin Lispro 100 UNIT/ML INSULN.PEN SC ×2 (11:41→17:30)
[2022-11-24 12:25] LABS: Bedside Glucose 202 mg/dL (74-106)
--- NOTE | 2022-11-24 13:00 | CASEMGMT ---
Physician is recommending Hospice and patient's brother/POA is in agreement. FREDDY met with patient's brother Susan. Introduced self and role at [facility]. He confirmed he would like Hospice, however he would like patient to return to [facility] on Hospice. Susan said he just paid for the rest of this month at [facility]. FREDDY then called [facility] and spoke with Shonna. FREDDY let her know family would like for patient to return to [facility] on Hospice. Shonna said she will have Mara, their college administrator call FREDDY. Shonna also told patient is active with [facility]. FREDDY then called Susie at [facility] and let her know patient will be transitioning to Hospice. Plan would be for patient to go back to [facility] on Hospice. Susie will call patient's brother Susan and make an appt to talk about Hospice. FREDDY then received a call from Mara at [facility] and it is okay for patient to return. However, he cannot return until all the equipment has been set up in his room. There is currently a bed in his room that will not work for patient. Mara asked that FREDDY communicate with her tomorrow regarding plans. FREDDY called Susie and let her know this information. FREDDY received a call from Susie and she spoke with patient's brother Susan. He will not be able to remove the bed from patient's room. Susie said they will be meeting with patient's brother at [facility] at 5p today. Susie also said she was going to call Mara regarding the bed removal issue. Plan: d/c back to [facility] on [facility] once all equipment has been set up. Deloris CELAYA
[2022-11-24] MEDS: 0.45% Normal Saline 1,000 ML 50 ML IV (13:48)
[2022-11-24 14:54] LABS: Partial Thromboplast Time 28.5 Seconds (24.1-36.2)
--- NOTE | 2022-11-24 16:49 | PN.HOSP_ITS ---
Subjective Subjective ollow-up on acute right MCA stroke: Patient was seen and examined.? Overnight, patient is more lethargic, remains a phasic, unable to sit upright. Blood pressures have remained elevated Objective Data Objective Data Vital Signs: Vital Signs Temp Pulse Resp BP Pulse Ox O2 Del Method O2 Flow Rate 98.4 F 83 20 H 156/126 H 96 Nasal Cannula 3 11/24/22 15:00 11/24/22 15:00 11/24/22 15:00 11/24/22 15:00 11/24/22 15:00 11/24/22 15:00 11/24/22 15:00 Oxygen Flow Rate (L/min) 3 Oxygen Delivery Method Nasal Cannula Weight: 136 kg Body Mass Index (BMI) 38.5 Intake & Output: Intake and Output for Last 24 Hours 11/22/22 11/23/22 11/24/22 23:59 23:59 23:59 Intake Total 0 / 0 750.00 / 750.00 985.07 / 985.07 Output Total 2425 / 3225 1150 / 1150 600 / 600 Balance -2425 / -3225 -400.00 / -400.00 385.07 / 385.07 Lab / Micro Data Result Diagrams: 11/23/22 02:41 11/23/22 02:41 Labs: Laboratory Results - last 24 hr 11/23/22 17:09: APTT 76.4 H 11/23/22 20:26: POC Glucose 221 H 11/23/22 23:50: APTT 99.8 H* 11/24/22 06:14: POC Glucose 183 H 11/24/22 08:00: APTT 65.8 H 11/24/22 11:39: POC Glucose 202 H 11/24/22 14:30: APTT 28.5 Radiography Diagnostic Testing: Radiology Impression Brain CT 11/24/22 08:26 IMPRESSION: Acute right basal ganglion infarct. Electronically Signed: Jamir Goldman MD at 12:37 EST , ADDENDUM: 11/24/22 1308 IMPRESSION: Acute right basal ganglion infarct. N.B. : The above Results were Read Back by Jamir Goldman MD to Carla Washington RN, and understanding confirmed on 11/24/2022 13:01:59 (ET). Electronically Signed: Jamir Goldman MD at 12:37 EST , Physical Exam Narrative hysical exam: General: More lethargic, aphasic HEENT: Atraumatic Oral: Moist Mucosa Neck: Supple Lungs: Diminished to auscultation Cardiovascular: HS I+II, regular, no murmurs Abdomen: Bowel Sounds Present, Soft, Non Tender Extremities: No edema Skin: No rashes, No breakdown Neurological: Dense left-sided hemiplegia Psych/Mental Status: Appropriate Assessment & Plan Assessment/Plan (1) CVA (cerebral vascular accident): PLAN: Plan 1. Acute right MCA stroke, severe, with dense left-sided hemiplegia, seen on MRI brain Patient with worsening lethargy, repeat CT of the brain shows new basal ganglia infarct Patient with bilateral M1 stenosis and bilateral [employer] G[employer] TECH[employer]ICIAN stenosis 2D-Echo with negative bubble study Unable to swallow safely; continue with rectal aspirin Discussed patient's overall care with this brother, healthcare power of litigation attorney, brother stated that he did not want patient to suffer Patient is a candidate for inpatient hospice unit but however the IPU is full. Patient will be discharged to [place] with hospice Will discontinue heparin drip as the demands frequent blood draws in keeping with patient's comfort. 2. Probable aspiration pneumonia, remains n.p.o., speech therapy following Continue on IV Zosyn 3. PAD, h/o DVT/PE, continue on aspirin rectal 4. Type II DM, HgbA1c 7.5, continue with blood glucose checks and ISS 5. Obesity, BMI 38.5 6. Schizophrenia, on Seroquel, but patient is unable to swallow 7. DVT PPx- SCDs Disposition: Discharge to [place] with hospice tomorrow Charges/Coding Visit Charges Inpatient E&M: 79361 Subs Hosp L2
[2022-11-24 17:20] LABS: Bedside Glucose 190 mg/dL (74-106)
[2022-11-24] MEDS: MELATONIN 3 MG TABLET PO (21:00)
[2022-11-24] MEDS: Gabapentin 100 MG Capsule PO (21:01)
[2022-11-24] MEDS: QUEtiapine 100 MG Tablet PO (21:02)
[2022-11-24] MEDS: Haloperidol Lactate 5 MG/ML Vial 2 MG IV (21:22)
[2022-11-24 23:11] LABS: Bedside Glucose 165 mg/dL (74-106)
[2022-11-25] VITALS (8 sets, daily range): BP systolic 149–154; BP diastolic 109–116; PULSE 56–76; RESP 20; TEMP 36.4–36.9; O2SAT 92–99
[2022-11-25] MEDS: 0.45% Normal Saline 1,000 ML 50 ML IV (06:10)
--- NOTE | 2022-11-25 06:17 | TREXTCAR_ITS ---
Diet Diet Order/Speech Therapy: 11/22/22 06:49 NPO [Diet: Nothing Per Oral] Is pt able to select menu?: No Diet Comments: NO EXCEPTIONS Routine Orders/Code Status Suppository Type: Dulcolax 10mg Suppository Frequency: Daily PRN O2 Liters per Minute: 3 O2 Frequency: Continuous Keep PO Greater than or Equal to (%): 94 Code Status: DNRCC Problem/Diagnosis (1) CVA (cerebral vascular accident): Status: Acute Code(s): I63.9 - Cerebral infarction, unspecified Plan 1. Acute right MCA stroke, severe, with dense left-sided hemiplegia 2. Probable aspiration pneumonia 3. PAD, h/o DVT/PE 4. Type II DM 5. Obesity 6. Schizophrenia Allergies/Procedures Done in Hospital Allergies No Known Allergies Allergy (Verified 11/20/22 21:14) Procedures: 2-D Echocardiogram Type of Care/Length of Stay Estimated LOS: Convalescent Care Less Than 30 days Type of Care Needed: Inpt Hospice Facility Rehab Potential: Poor Prognosis: Poor Additional Orders/Day of Discharge Day of Discharge: 11/25/22 Dietary and Speech Recommendations Dietitian Recommendations/Changes: Will increase kcal on Cardiac: Calorie- Controlled diet to 2000kcal to better meet estimated nutrient needs. Otherwise, continue with diet and no ONS needs at this time. Will reassess upon follow-up visit. Speech Linguistic Eval Summary: Pt. oriented to self, year and state only. Pt. complete automatic naming tasks LUCIA:05/28, count from 1-20: 20/20 Pt. answered yes/no questions to self 3/3, orientation1/5 Name objects in room 5/5 finish sentences 5/5 Pt. able to follow 1-step directions with 2/6 Pt. unable to respond to conversation, and pt. presented with difficulty with coordinating breathing and speech. Speech was dysarthric and hard to understand at times. Discharge Plan Admission Admit Date/Time: 11/21/22 14:10 Primary Reason for Your Visit: Acute CVA Attending Provider: Charo Young Primary Care Provider: Gregorio Gutiérrez Consulting Providers: Jesse Mazariegos ; Eloisa Gale Discharge Orders/Prescriptions Prescriptions: No Action furosemide 40 MG tablet 40 mg PO BID Label Comments: water pill potassium chloride [Klor-Con M20] 20 MEQ tablet 20 meq PO DAILY Label Comments: supplement amlodipine 10 MG tablet 10 mg PO DAILY Label Comments: blood pressure metformin 500 MG tablet 1,000 mg PO BID ezetimibe 10 MG tablet 10 mg PO DAILY rivaroxaban 20 MG tablet 20 mg PO DAILY lisinopril 40 MG tablet 40 mg PO DAILY glimepiride 4 MG tablet 4 mg PO DAILY@0800 0RF insulin glargine [Lantus U-100 Insulin] 100 unit/mL solution SUBCUT metoprolol succinate 100 mg tablet extended release 24 hr 100 mg PO DAILY quetiapine 100 mg tablet 100 mg DAILY ergocalciferol (vitamin D2) 1,250 mcg (50,000 unit) capsule 1,250 mcg PO QWEEK fluticasone propionate [Flonase Allergy Relief] 50 mcg/actuation spray,suspension 50 mcg INTRANASAL PRN (Reason: Nasal Congestion) Rx Instructions: 2 sprays acetaminophen 500 mg TID nystatin 100,000 unit/gram powder 1 applic topical BID 10 Days Qty: 60 0RF furosemide [Lasix] 40 mg tablet 20 mg PO BID gabapentin 100 mg Capsule 100 mg PO QHS montelukast 10 mg Tablet 10 mg PO QHS albuterol 90 mcg/actuation Aerosol INHALATION polyethylene glycol 3350 [Miralax] 17 gram Powder In Packet 17 g PO DAILY Referrals / Follow Up: Gregorio Gutiérrez MD [Primary Care Provider] - Disposition Disposition (needs filled in before D/C Order can be placed): Hospice in Medical Facility
[2022-11-25] MEDS: Haloperidol Lactate 5 MG/ML Vial 2 MG IV (06:22)
[2022-11-25] MEDS: 0.9% Saline Lock 10 ML Syringe IV ×2 (06:23→11:11)
[2022-11-25 07:00] LABS: Bedside Glucose 170 mg/dL (74-106)
[2022-11-25] MEDS: Nystatin Powder 15gm Bottle 1 APPLIC TOPICAL (09:38)
[2022-11-25 11:31] LABS: Bedside Glucose 164 mg/dL (74-106)
--- NOTE | 2022-11-25 14:57 | CASEMGMT ---
Addendum entered by Deloris Dwyer 11/25/22 15:14: SW called patient's brother Susan and let him know patient will be going back to [place] today and will get picked up at 1630. Deloris CELAYA Original Note: SW spoke with Hospice and [facility]. Patient's equipment has been delivered. SW arranged for patient to get picked up at 430 via cot. SW notified Candy at [facility], Susie at [facility], and RN. SW will also notify patient's brother, Susan. SW also faxed information to [facility] and [facility]. Plan: d/c back to [place] under [facility]. Physicians will transpor via cot. Deloris CELAYA
--- NOTE | 2022-11-25 15:56 | NURSING ---
Report called to nurse Kilpatrick at [facility] for pt to be transferred.
== END 2022-11-25 17:21 | disposition hospice, home (50) | DRG 64 ==
LOC: ED 11-21 00:23 → PCU 11-21 00:44
PROVIDERS: Internal Medicine; Admitting Provider Hospitalist; Emergency Provider Emergency Medicine; PCP Internal Medicine; Visit Provider Internal Medicine
DX: I63.511 Cerebral infarction due to unspecified occlusion or stenosis of right middle cerebral artery (principal); J69.0 Pneumonitis due to inhalation of food and vomit; G81.94 Hemiplegia, unspecified affecting left nondominant side; E11.51 Type 2 diabetes mellitus with diabetic peripheral angiopathy without gangrene; G40.909 Epilepsy, unspecified, not intractable, without status epilepticus; I48.91 Unspecified atrial fibrillation; E04.1 Nontoxic single thyroid nodule; E11.65 Type 2 diabetes mellitus with hyperglycemia; F20.9 Schizophrenia, unspecified; G47.33 Obstructive sleep apnea (adult) (pediatric); I10 Essential (primary) hypertension; E78.5 Hyperlipidemia, unspecified; I65.1 Occlusion and stenosis of basilar artery; Z79.82 Long term (current) use of aspirin; Z79.84 Long term (current) use of oral hypoglycemic drugs; Z86.73 Personal history of transient ischemic attack (TIA), and cerebral infarction without residual deficits; R13.10 Dysphagia, unspecified; Z66 Do not resuscitate; Z51.5 Encounter for palliative care; Z79.01 Long term (current) use of anticoagulants; Z86.718 Personal history of other venous thrombosis and embolism; Z86.711 Personal history of pulmonary embolism; E66.9 Obesity, unspecified; Z68.38 Body mass index [BMI] 38.0-38.9, adult
CPT/HCPCS: 36415; 70450; 70496; 70498; 70551; 71045; 80048; 80053; 80061; 82962; 83036; 84443; 84484; 85025; 85610; 85730; 92507; 92523; 92526; 92610; 93005; 93306; 94640; 94762; 97163; 97166; 97530; 97535; 97802; 99251; 99285; J7040; Q9957; Q9967; A4216; G0463; J1940